=== PATIENT | female | born 1955 | race Caucasian/White ===

== ENCOUNTER 2019-09-20 08:48 | Outpatient (CLI) | payer BC, SELFPAY ==
--- NOTE | 2019-09-20 09:07 | XR_ITS ---
WS: [id number] KNEE RIGHT TECHNIQUE: 3 views of the right knee CLINICAL INFORMATION: KNEE PAIN, RIGHT COMPARISON: November 08, 2017 FINDINGS: Mild joint space narrowing medial joint compartment. Lateral compartment is better preserved. Hypertr ophic patella. Moderate narrowing of patellofemoral articulation XR/XR knee RT 3V* [id number] IMPRESSION: Mild joint space narrowing medial joint compartment with moderate narrowing at the patellofemoral articulation. Hypertrophic patella.
== END 2019-09-20 08:49 | disposition home or self-care (01) ==
LOC: RADWPI 08:51
PROVIDERS: Family Provider Family Medicine; PCP Family Medicine; Visit Provider Family Medicine
DX: M25.561 Pain in right knee (principal)
CPT/HCPCS: 73562

== ENCOUNTER 2019-09-25 14:26 | Outpatient (RCR) | payer BC, SELFPAY | END 2019-10-06 23:59 | disposition home or self-care (01) | LOC: SPT 14:26 | PROVIDERS: Family Provider Family Medicine; PCP Family Medicine; Referring Provider Family Medicine; Visit Provider Family Medicine | DX: M25.561 Pain in right knee (principal) | CPT/HCPCS: 97110; 97162 ==

== ENCOUNTER 2019-10-07 06:00 | Outpatient (RCR) | payer BC, SELFPAY | END 2019-11-06 23:59 | disposition home or self-care (01) | LOC: SPT 06:00 | PROVIDERS: Family Provider Family Medicine; PCP Family Medicine; Referring Provider Family Medicine; Visit Provider Family Medicine | DX: M25.561 Pain in right knee (principal) | CPT/HCPCS: 97110 ==

== ENCOUNTER 2020-01-21 13:04 | Outpatient (CLI) | payer BC, SELFPAY ==
--- NOTE | 2020-01-21 13:10 | XR_ITS ---
WS: [id number] XR hand RT min 3V* [id number] REASON FOR EXAM: HAND PAIN, RIGHT FINDINGS: Degenerate changes of the distal interphalangeal joints of the first, second, third phalanx . There is degenerate changes of the articulation of the scaphoid and greater lesser multangular. The ulna and radius were normal. Comparisons were made to previous exam of March 01, 2017 with slightly progressive disease. There is a small cystic area noted now in the middle second phalanx and the distal third phalanx. XR/XR hand RT min 3V* [id number] IMPRESSION: Progressive osteoarthritic changes. Small cysts are seen in the phalanges now second and third.
== END 2020-01-21 13:05 | disposition home or self-care (01) ==
LOC: RAD 13:07
PROVIDERS: PCP Family Medicine; Visit Provider Family Medicine
DX: M79.641 Pain in right hand (principal)
CPT/HCPCS: 73130

== ENCOUNTER 2020-01-30 08:25 | Outpatient (CLI) | payer BC, SELFPAY ==
--- NOTE | 2020-01-30 08:33 | MR_ITS ---
WS: [id number] MRI RIGHT KNEE NONCONTRAST TECHNIQUE: Axial PD, coronal PD fat sat, coronal PD, sagittal PD, and sagittal PD fat-sat images obta ined. CLINICAL INFORMATION: RIGHT KNEE PAIN COMPARISON: None. FINDINGS: Distal quadriceps and patella tendons are intact. Hypertrophic patella. Diffuse thickening with T1 an d T2 signal normality involving the anterior cruciate ligament most consistent with mucoid degenerati on. ACL fibers appear intact. PCL appears normal. Diffuse chronic thinning of the medial and lateral meniscus. Horizontal tear involving the posterior horn medial meniscus extending to the articular surface. Chronic intrasubstance signal abnormality in volving both the medial and lateral meniscus. Small ganglion cyst along the ACL origin largest measuring 11 mm. Large lobulated popliteal cyst whitney uring 1.5 x 1.8 x 8.1 cm AP by transverse by craniocaudal. Advanced chondromalacia patella with subchondral edema. Complete loss of the cartilage involving the medial patella facet. Moderate degenerative narrowing involving the patellofemoral articulation. Medi al and lateral collateral ligaments appear intact. Advanced chondromalacia involving the medial joint compartment. Subchondral edema in the medial femoral condyle and tibial plateau. MR/MR knee RT wo con* [id number] IMPRESSION: 1. Diffuse thickening of the anterior cruciate ligament with T1 and T2 signal abnormality most consistent with mucoid degeneration. ACL appears intact. 2. Normal PCL. 3. Horizontal tear involving the posterior horn medial meniscus extending to t he articular surface. 4. Moderate to advanced joint space narrowing with near complete loss of the m edial joint space articular cartilage with subchondral edema. 5. Grade IV chondromalacia patella worse involving the medial patella facet wi th subchondral edema. 6. Large loculated popliteal cyst measuring 1.5 x 1.8 x 8.1 cm
== END 2020-01-30 08:26 | disposition home or self-care (01) ==
LOC: RADWPI 08:27
PROVIDERS: Family Provider Family Medicine; PCP Family Medicine; Visit Provider Family Medicine
DX: S83.241A Other tear of medial meniscus, current injury, right knee, initial encounter (principal); M22.41 Chondromalacia patellae, right knee; R60.9 Edema, unspecified; M71.21 Synovial cyst of popliteal space [Baker], right knee
CPT/HCPCS: 73721

== ENCOUNTER 2020-10-20 10:11 | Outpatient (CLI) | payer BC, SELFPAY ==
--- NOTE | 2020-10-20 10:17 | MM_ITS ---
WS: [id number] Bilateral screening digital mammogram, 10/20/2020 Clinical Data: SCREENING Comparison: 05/23/2019, 02/10/2018, 02/01/2017, 01/20/2016, 06/25/2014, 05/28/2013, 02/21/2012, 02/04/2012, 01/26/2011, 12/29/2009, 10/16/2008, 02/09/2007. Findings: The breast parenchymal pattern shows fibroglandular tissue No spiculated masses or clustered calcific ations are seen. There are no secondary signs of carcinoma. MM/[place] [id number] Impression: 1. Negative bilateral mammogram unchanged. 2. Recommend annual screening mammograms. BIRADS: 1-Negative FOLLOW UP: 1 Year Follow-up The CAD dry cleaning checker was used.
== END 2020-10-20 10:12 | disposition home or self-care (01) ==
LOC: RADSHAW 10:14
PROVIDERS: PCP Family Medicine; Visit Provider Family Medicine
DX: Z12.31 Encounter for screening mammogram for malignant neoplasm of breast (principal)
CPT/HCPCS: 77067

== ENCOUNTER 2021-09-28 12:26 | Outpatient (CLI) | payer BC, SELFPAY ==
--- NOTE | 2021-09-28 12:40 | XR_ITS ---
WS: [id number] Exam: XR chest 2V* [id number] Date/Time of Exam: 09/28/2021 12:47 PM Reason For Exam: CHEST PAIN No priors. The lungs are hyperinflated. No acute infiltrates are seen. Blunted right costophrenic angle may repr esent either pleural effusion or chronic pleural thickening. Heart size is normal. The mediastinum an d osseous thorax are unremarkable. XR/XR chest 2V* [id number] IMPRESSION: 1. Pulmonary hyperinflation which may indicate COPD. 2. Blunted right costophrenic angle suggesting either pleural thickening or sma ll pleural effusion.
[2021-09-28 13:11] LABS: Basophils # 0.1 10^3/uL (0.0-0.1); Basophils % 0.7 %; Eosinophils # 0.1 10^3/uL (0.0-0.8); Hematocrit 39.7 % (37.0-47.0); Hemoglobin 12.5 g/dL (11.5-15.3); Lymphocytes # 2.3 10^3/uL (0.8-4.8); Mean Corpuscular HGB Conc 31.5 g/dL (30.0-36.0); Mean Corpuscular Hemoglobin 29.3 pg (28.0-34.0); Mean Corpuscular Volume 93.2 fl (81-99); Mean Platelet Volume 9.8 fL (7.4-10.4); Monocytes # 0.8 10^3/uL (0.2-0.9); Monocytes % 7.5 %; Neutrophils # 7.54 10^3/uL (1.8-7.7); Neutrophils % 69.4 %; Nucleated Red Blood Cells % 0 %; Platelet Count 287 10^3/cmm (130-400); Red Blood Count 4.26 10^6/uL (4.1-5.3); Red Cell Distribution Width 13.5 % (12.1-15.1); White Blood Count 10.9 10^3/uL (4.0-10.0)
[2021-09-28 13:25] LABS: D Dimer 1.78 ug/mIFEU (0-0.59)
[2021-09-28 13:45] LABS: Alanine Aminotransferase 191 U/L (0-33); Albumin Level 4.2 g/dL (3.5-5.2); Alkaline Phosphatase 180 IU/L (35-105); Anion Gap 15.4 (5-19); Aspartate Amino Transferase 152 U/L (0-32); Blood Urea Nitrogen 21 mg/dL (8-23); Calcium 9.6 mg/dL (8.5-10.5); Carbon Dioxide 24 mmol/L (22-29); Chloride 105 mmol/L (98-107); Globulin 2.6 g/dL (1.3-4.6); Glucose 139 mg/dL (65-115); Osmolality Calculated 295 mOsm/kg (285-295); Potassium 4.4 mmol/L (3.5-5.1); Sodium 140 mmol/L (136-145); Total Bilirubin 0.4 mg/dL (0.15-1.2); Total Protein 6.8 g/dL (6.6-8.7)
[2021-09-28 13:48] LABS: Troponin T (5th) Once 22 ng/L (0-10)
== END 2021-09-28 12:27 | disposition home or self-care (01) ==
PROVIDERS: PCP Family Medicine; Visit Provider Family Medicine
DX: R07.9 Chest pain, unspecified (principal)
CPT/HCPCS: 36415; 71046; 80053; 84484; 85025; 85378

== ENCOUNTER 2021-09-28 18:51 | Inpatient (IN) | payer BC, MEDICARE, SELFPAY ==
[2021-09-28] VITALS (7 sets, daily range): BP systolic 100–146; BP diastolic 74–132; PULSE 74–132; RESP 18–75; TEMP 35.9–37.2; O2SAT 93–96; BMI 210.9; BMI 23.4
--- NOTE | 2021-09-28 18:52 | XRR_ITS ---
PROCEDURE INFORMATION: Exam: XR Chest Exam date and time: 09/28/2021 6:52 PM Age: 66 years old Clinical indication: Shortness of breath; Patient HX: Rapid heart rate; Additional info: Cp TECHNIQUE: Imaging protocol: XR of the chest. Views: 1 view. COMPARISON: CR XR chest 2V* [id number] 09/28/2021 12:52 PM FINDINGS: Lungs: Bilateral hilar to lower lobe atelectasis versus early infiltrate. Pleural spaces: Unremarkable. No pleural effusion. No pneumothorax. Heart/Mediastinum: Mild cardiomegaly and pulmonary vascular congestion. Bones/joints: Unremarkable. XR/XR chest 1V portable [id number] IMPRESSION: 1. Mild cardiomegaly and pulmonary vascular congestion. 2. Bilateral hilar to lower lobe atelectasis versus early infiltrate.
--- NOTE | 2021-09-28 18:52 | ECG_ITS ---
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 Measurements Intervals [place] Rate: 145 P: NC: QRS: 83 QRSD: 78 T: 85 QT: 285 QTc: 444 Interpretive Statements ATRIAL FIBRILLATION WITH RAPID VENTRICULAR RESPONSE POSSIBLE ANTERIOR MYOCARDIAL INFARCTION , PROBABLY OLD [30 ms Q WAVE IN V3/V4, OR R < 0.2 mV IN V4] ABNORMAL RHYTHM ECG No previous ECG available for comparison Electronically Signed On 09-28-2021 22:16:43 APPLICATIONS SYSTEM ANALYST by Sandeep Andres M.D. [id number]
--- NOTE | 2021-09-28 18:54 | CTR_ITS ---
PROCEDURE INFORMATION: Exam: CTA Chest With Contrast Exam date and time: 09/28/2021 6:54 PM Age: 66 years old Clinical indication: Shortness of breath; Patient HX: SOB TECHNIQUE: Imaging protocol: Computed tomographic angiography of the chest with contrast. 3D rendering (Not supervised by radiologist): MIP and/or 3D reconstructed images were created by the technologist. Radiation optimization: All CT scans at this facility use at least one of these dose optimization techniques: automated exposure control; mA and/or kV adjustment per patient size (includes targeted exams where dose is matched to clinical indication); or iterative reconstruction. Contrast material: OMNI 300; Contrast volume: 67 ml; Contrast route: INTRAVENOUS (IV); COMPARISON: CR (CHEST, ) 09/28/2021 7:33 PM RADIATION DOSE METRICS: Total DLP (mGy-cm): 498.47 FINDINGS: Pulmonary arteries: Normal. No pulmonary emboli. Aorta: Unremarkable. No aortic aneurysm. No aortic dissection. Lungs: Bilateral dependent atelectasis versus infiltrate. Pleural spaces: Moderate bilateral pleural effusions. Heart: Mild cardiomegaly. Lymph nodes: Unremarkable. No enlarged lymph nodes. Bones/joints: Unremarkable. No acute fracture. Soft tissues: Unremarkable. CT/CT angio chest PE protcl [id number] IMPRESSION: 1. Negative for pulmonary embolus. 2. Moderate bilateral pleural effusions. 3. Mild cardiomegaly. 4. Bilateral dependent atelectasis versus infiltrate.
--- NOTE | 2021-09-28 19:15 | ED_ITS ---
HPI - Arrhythmia/Palpitations General: Chief Complaint: Arrhythmia/Palpitations Stated Complaint: chest pain, SOB Time Seen by Provider: 09/28/21 18:53 Source: patient Mode of arrival: ambulatory Limitations: no limitations History of Present Illness: 66-year-old female states she was diagnosed with A. fib roughly 2 weeks ago she has been on propranolol states that she is continue to have a half heart rate and she started having increasing shortness of breath today. She was seen by her PCP did D-dimer it was elevated so they sent her here. States that she has had some slight swelling to her extremities as well. She had some chest pains when she has palpitations heart rate here is elevated. Associated symptoms: Deny nausea or vomiting Review of Systems Const: Denies: fever(s), chills, body aches or change in appetite Eyes: Denies: blurry vision or eye discomfort ENMT: Denies: throat pain or dental pain Card: Reports: chest pain, palpitations and irregular heart rhythm Resp: Reports: dyspnea GI: Denies: abdominal pain, nausea, vomiting or diarrhea : Denies: dysuria Musc: Denies: neck pain or back pain Skin/Breast: Denies: rash Neuro: Denies: headache(s) Psych: Denies: depression [place]/Lymph: Denies: easy bruising All/Imm: Denies: urticaria PFSH ED PFSH: Medical History Atrial fibrillation Social History Desire information about alcohol rehabilitation?: No Physical Exam Const: COMMON NORMALS: patient oriented x3 GENERAL APPEARANCE: in distress and ill appearing HENMT: COMMON NORMALS: normocephalic and atraumatic HEAD & SCALP: normocephalic and atraumatic Eye: COMMON NORMALS: Equal, round and reactive pupils present and EOMs intact bilaterally PUPIL: Yes Equal, round and reactive pupils present Neck/C-Spine: COMMON NORMALS: full ROM and supple Chest: COMMONS NORMALS: normal inspection of the chest and normal palpation of entire chest wall Resp: COMMON NORMALS: normal respiratory effort, No retractions, No use of accessory muscles and clear to auscultation bilaterally AUSCULTATION: clear to auscultation bilaterally Cardio: COMMON NORMALS: No murmurs present (Cardio) RATE: tachycardic RHYTHM: abnormal rhythm irregularly irregular GI: COMMON NORMALS: Normal to inspection, nondistended, normoactive bowel sounds present, Soft to palpation, non-tender and no masses PALPATION: Yes Soft to palpation Extremity: COMMON NORMALS: normal to inspection and full ROM Neuro: COMMON NORMALS: patient oriented x3, moves all extremities and no focal motor deficits Psych: COMMON NORMALS: mental status grossly normal, Normal thought process present and cooperative THOUGHT PROCESS: Normal thought process present Skin: COMMON NORMALS: no rashes or lesions noted and no wounds GENERAL SKIN EXAM: no rashes or lesions noted Course Vital Signs: Vital signs: Vital Signs Temperature 99.0 F 09/28/21 19:05 Pulse Rate 74 09/28/21 19:15 Respiratory Rate 18 09/28/21 19:15 Blood Pressure 100/74 09/28/21 19:15 Pulse Oximetry 93 09/28/21 19:15 MDM - Arrhythmia/Palpitations Medical Decision Making Patient presents with A. fib with RVR requiring a Cardizem drip patient also conor kee has congestive heart failure she is having some dyspnea elevated BNP will admit for an echo along with further treatment of her A. fib spoke to hospitalist who is admitting. Lab Data : 09/28/21 19:05 09/28/21 19:05 Radiology Impressions Chest X-Ray 09/28/21 18:52 IMPRESSION: 1. Mild cardiomegaly and pulmonary vascular congestion. 2. Bilateral hilar to lower lobe atelectasis versus early infiltrate. Chest CTA 09/28/21 18:54 IMPRESSION: 1. Negative for pulmonary embolus. 2. Moderate bilateral pleural effusions. 3. Mild cardiomegaly. 4. Bilateral dependent atelectasis versus infiltrate. Laboratory Results WBC 9.0 10^3/uL (4.0-10.0) 09/28/21 19:05 RBC 3.98 10^6/uL (4.1-5.3) L 09/28/21 19:05 Hgb 11.8 g/dL (11.5-15.3) 09/28/21 19:05 Hct 36.4 % (37.0-47.0) L 09/28/21 19:05 MCV 91.5 fl (81-99) 09/28/21 19:05 MCH 29.6 pg (28.0-34.0) 09/28/21 19:05 MCHC 32.4 g/dL (30.0-36.0) 09/28/21 19:05 RDW 13.5 % (12.1-15.1) 09/28/21 19:05 Plt Count 261 10^3/cmm (130-400) 09/28/21 19:05 MPV 10.2 fL (7.4-10.4) 09/28/21 19:05 Neut % (Auto) 66.2 % 09/28/21 19:05 Lymph % (Auto) 23.6 % 09/28/21 19:05 [place] % (Auto) 9.4 % 09/28/21 19:05 Eos % (Auto) 0.1 % 09/28/21 19:05 Baso % (Auto) 0.4 % 09/28/21 19:05 Neut # (Auto) 5.95 10^3/uL (1.8-7.7) 09/28/21 19:05 Lymph # (Auto) 2.1 10^3/uL (0.8-4.8) 09/28/21 19:05 [place] # (Auto) 0.9 10^3/uL (0.2-0.9) 09/28/21 19:05 Eos # (Auto) 0.0 10^3/uL (0.0-0.8) 09/28/21 19:05 Baso # (Auto) 0.0 10^3/uL (0.0-0.1) 09/28/21 19:05 Nucleated RBC % (auto) 0 % 09/28/21 19:05 Nucleated RBCs # 0.0 /100WBC 09/28/21 19:05 Sodium 138 mmol/L (136-145) 09/28/21 19:05 Potassium 4.9 mmol/L (3.5-5.1) 09/28/21 19:05 Chloride 105 mmol/L (98-107) 09/28/21 19:05 Carbon Dioxide 23 mmol/L (22-29) 09/28/21 19:05 Anion Gap 14.9 (5-19) 09/28/21 19:05 BUN 24 mg/dL (8-23) H 09/28/21 19:05 Creatinine 0.8 mg/dL (0.5-0.9) 09/28/21 19:05 GFR Calculation 72.0 mL/min (90-130) L 09/28/21 19:05 Glucose 162 mg/dL (65-115) H 09/28/21 19:05 Calculated Osmolality 294 mOsm/kg (285-295) 09/28/21 19:05 Calcium 9.4 mg/dL (8.5-10.5) 09/28/21 19:05 Total Bilirubin 0.3 mg/dL (0.15-1.2) 09/28/21 19:05 AST 172 U/L (0-32) H 09/28/21 19:05 ALT 209 U/L (0-33) H 09/28/21 19:05 Alkaline Phosphatase 184 IU/L (35-105) H 09/28/21 19:05 Troponin T Baseline 22 ng/L (0-10) H 09/28/21 19:05 NT-Pro-B Natriuret Pep 8662 pg/mL (0-125) H 09/28/21 19:05 Total Protein 6.3 g/dL (6.6-8.7) L 09/28/21 19:05 Albumin 4.1 g/dL (3.5-5.2) 09/28/21 19:05 Globulin 2.2 g/dL (1.3-4.6) 09/28/21 19:05 EKG Data EKG 1: I personally reviewed and interpreted this EKG as follows: EKG interpretation date: 09/28/21 EKG interpretation time: 18:58 Interpretation: afib hr [address] or t wave abnormalities qrs 78 qtc 369 Other EKG comments: Chest X-Ray 09/28/21 18:52 IMPRESSION: 1. Mild cardiomegaly and pulmonary vascular congestion. 2. Bilateral hilar to lower lobe atelectasis versus early infiltrate. Chest CTA 09/28/21 18:54 IMPRESSION: 1. Negative for pulmonary embolus. 2. Moderate bilateral pleural effusions. 3. Mild cardiomegaly. 4. Bilateral dependent atelectasis versus infiltrate. Critical Care Time Critical Care Time: Critical Care Time: Yes Total Critical Care Time: 40 Attestation: The high probability of a clinically significant, sudden or life threatening deterioration of the patient's cv system(s) required my full and direct attention, intervention and personal management. The critical care time is as shown. This time is in addition to time spent performing any reported procedures but includes the following: [x] Data and vital sign review and interpretation [x] Patient assessment, examination and intervention [x] Documentation [x] Medication orders and management Discharge Plan Discharge Patient Disposition: Admitted As Inpatient Clinical Impression: Atrial fibrillation with RVR, CHF (congestive heart failure) Condition: Stable Coding Level of Care Code ED Acid Operator for Germán Fwd Exam Comprehensive
[2021-09-28 19:17] LABS: Basophils % 0.4 %; Eosinophils % 0.1 %; Hematocrit 36.4 % (37.0-47.0); Hemoglobin 11.8 g/dL (11.5-15.3); Lymphocytes # 2.1 10^3/uL (0.8-4.8); Lymphocytes % 23.6 %; Mean Corpuscular HGB Conc 32.4 g/dL (30.0-36.0); Mean Corpuscular Hemoglobin 29.6 pg (28.0-34.0); Mean Corpuscular Volume 91.5 fl (81-99); Mean Platelet Volume 10.2 fL (7.4-10.4); Monocytes # 0.9 10^3/uL (0.2-0.9); Monocytes % 9.4 %; Neutrophils # 5.95 10^3/uL (1.8-7.7); Neutrophils % 66.2 %; Nucleated Red Blood Cells % 0 %; Platelet Count 261 10^3/cmm (130-400); Red Blood Count 3.98 10^6/uL (4.1-5.3); Red Cell Distribution Width 13.5 % (12.1-15.1)
--- NOTE | 2021-09-28 19:25 | PC.NURSE ---
This RN noted patient's SpO2 at 83% with good waveform. Pt awakens immediately to verbal stimuli and able to follow commands. Pt placed on 2L NC, now 99%. Pt a/ox4, able to answer all orientation questions correctly. Pt is able to give good history of present illness. Pt appears calm and in no acute distress.
[2021-09-28 19:40] LABS: Troponin(5th) Baseline 22 ng/L (0-10)
[2021-09-28 19:41] LABS: Alanine Aminotransferase 209 U/L (0-33); Albumin Level 4.1 g/dL (3.5-5.2); Alkaline Phosphatase 184 IU/L (35-105); Anion Gap 14.9 (5-19); Aspartate Amino Transferase 172 U/L (0-32); Blood Urea Nitrogen 24 mg/dL (8-23); Calcium 9.4 mg/dL (8.5-10.5); Carbon Dioxide 23 mmol/L (22-29); Chloride 105 mmol/L (98-107); Globulin 2.2 g/dL (1.3-4.6); Glucose 162 mg/dL (65-115); NT Pro B Type Natriuretic Pept 8662 pg/mL (0-125); Osmolality Calculated 294 mOsm/kg (285-295); Potassium 4.9 mmol/L (3.5-5.1); Sodium 138 mmol/L (136-145); Total Bilirubin 0.3 mg/dL (0.15-1.2); Total Protein 6.3 g/dL (6.6-8.7)
[2021-09-28] MEDS: dilTIAZem 60 mg Tablet PO (19:54)
[2021-09-28] MEDS: iohexol 350 mg/mL 100 mL Btl IV (20:18)
[2021-09-28] MEDS: FUROsemide 10 mg/mL SDV 4mL 40 MG IVP (20:51)
--- NOTE | 2021-09-28 20:52 | ECG_ITS ---
[facility] Test Date: 2021-09-28 Pat Name: Glory Thomas Department: Room: Gender: Female Cigar Bander Hand: : 1955 Requested By: Mac Sumner Order Number: [id number] Jay MD: Sandeep Andres M.D. Measurements Intervals [place] Rate: 110 P: [place]: QRS: 77 QRSD: 81 T: 83 QT: 326 QTc: 441 Interpretive Statements ATRIAL FIBRILLATION WITH RAPID VENTRICULAR RESPONSE Compared to ECG 09/28/2021 18:58:02 Myocardial infarct finding no longer present Electronically Signed On 09-28-2021 22:19:50 HARNESS REPAIRER by Sandeep Andres M.D. [id number]
[2021-09-28 20:53] LABS: Troponin 5 2HR 17.25 ng/L (0-10)
[2021-09-28 20:54] LABS: Troponin 5 2HR Delta -4.75 ABS# (0-10)
[2021-09-28 20:57] LABS: Adenovirus Detected (NOT DETECT); Chlamydia Pneumoniae Not Detected (NOT DETECT); Coronavirus 229E,HKU1,NL63,OC4 Not Detected (NOT DETECT); Human Metapneumovirus Not Detected (NOT DETECT); Human Rhinovirus/Enterovirus Not Detected (NOT DETECT); Influenza A Not Detected (NOT DETECT); Influenza A H1 Not Detected (NOT DETECT); Influenza A H1-2009 Not Detected (NOT DETECT); Influenza A H3 Not Detected (NOT DETECT); Influenza B Not Detected (NOT DETECT); Mycoplasma Pneumoniae Not Detected (NOT DETECT); Parainfluenza Virus Type 1 Not Detected (NOT DETECT); Parainfluenza Virus Type 2 Not Detected (NOT DETECT); Parainfluenza Virus Type 3 Not Detected (NOT DETECT); Parainfluenza Virus Type 4 Not Detected (NOT DETECT); Respiratory Syncytial Virus A Not Detected (NOT DETECT); Respiratory Syncytial Virus B Not Detected (NOT DETECT); SARS-COV-2 Not Detected (NOT DETECT)
[2021-09-28 21:05] LABS: Adenovirus Detected (NOT DETECT); Results from Genmark
[2021-09-29] VITALS (12 sets, daily range): BP systolic 82–124; BP diastolic 60–102; PULSE 82–147; RESP 15–25; TEMP 36.1–36.6; O2SAT 91–94
--- NOTE | 2021-09-29 00:52 | ECG_ITS ---
[facility] Test Date: 2021-09-29 Pat Name: Glory Thomas Department: Room: 106 Gender: Female Twisting Department End Finder: : 1955 Requested By: Mac Sumner Order Number: [id number] Jay MD: Deisi Barroso M.D. Measurements Intervals [place] Rate: 113 P: [place]: QRS: 61 QRSD: 87 T: 56 QT: 325 QTc: 447 Interpretive Statements ATRIAL FIBRILLATION WITH RAPID VENTRICULAR RESPONSE NONSPECIFIC ST & T-WAVE ABNORMALITY Compared to ECG 09/28/2021 20:37:13 T-wave abnormality now present Electronically Signed On 09-29-2021 17:46:16 JOB INTERVIEWER by Deisi Barroso M.D. [id number]
--- NOTE | 2021-09-29 01:04 | USCV_ITS ---
Glory Thomas Age: 66 Gender: F : 1955 Exam Date: 09/29/2021 02:45 Ordering Phys: Anna Marie Oliveros MD Technologist: Ebonie Clark Exam Location: [facility] [place] Indication: AFIB RVR BP: 118 / 74 HR: 100 Rhythm: Sinus Technical Quality: Adequate MEASUREMENTS (Male / Female) Normal Values 2D ECHO LV Diastolic Diameter PLAX 4.6 cm 4.2 - 5.9 / 3.9 - 5.3 cm LV Systolic Diameter PLAX 2.2 cm LV Chamber Size 2.8 cm IVS Diastolic Thickness 0.9 cm 0.6 - 1.0 / 0.6 - 0.9 cm IVS Systolic Thickness 1.5 cm LVPW Diastolic Thickness 0.9 cm 0.6 - 1.0 / 0.6 - 0.9 cm LVPW Systolic Thickness 1.4 cm RV Chamber Size 3.1 cm LVOT Diameter 2.0 cm LV Ejection Fraction 2D Teich 84.0 % LV Ejection Fraction MOD 2C 55.8 % LV Ejection Fraction 2C AL 56.3 % LA Diameter 3.7 cm LA Width 2.9 cm LA Height 3.1 cm RA Width 3.2 cm RA Height 3.4 cm Aorta at Sinotubular Diameter 3.0 cm M-MODE Aortic Annulus Diameter 3.1 cm LA Ao Ratio MM 1.3 MV E Point Septal Separation 0.5 cm DOPPLER AV Peak Velocity 119.0 cm/s LVOT Peak Velocity 68.0 cm/s AV Area Cont Eq vti 2.0 cm squared AV Area Cont Eq pk 1.8 cm squared MV Area PHT 4.5 cm squared Mitral E to A Ratio 113.1 MV E' Velocity 51.0 cm/s Mitral E to MV E' Ratio 7.1 Mitral E to LV E' Lateral Ratio 8.2 Mitral E to LV E' Septal Ratio 6.3 TR Peak Velocity 241.8 cm/s TR Peak Gradient 23.4 mmHg TR Mean Velocity 185.8 cm/s TR Mean Gradient 15.3 mmHg TR Velocity Time Integral 63.8 cm TV Peak E Velocity 55.0 cm/s Right Atrial Pressure 15.0 mmHg Pulmonary Artery Systolic Pressu 38.4 mmHg PV Peak Velocity 68.0 cm/s RV Acceleration Time 0.1 s RV Ejection Time 0.3 s RV AcT/ET 0.4 FINDINGS Left Ventricle Normal left ventricular size and systolic function, EF 55 %. No regional wall motion abnormalities. Right Ventricle The right ventricle is normal in size and function. Right Atrium Moderately increased right atrial size. Left Atrium Mildly increased left atrial size. Mitral Valve Trace mitral valve regurgitation. Aortic Valve No gross abnormalities noted Tricuspid Valve [id number]-tq-sicqys tricuspid valve regurgitation. Estimated pulmonary artery peak systolic pressure of 38 mmHg Pulmonic Valve Structurally normal pulmonic valve without significant stenosis. There is no pulmonic regurgitation. Pericardium Dilated inferior vena cava Aorta Normal ascending aorta dimension. CONCLUSIONS Normal left ventricular size and systolic function, EF 55 %. No gross regional wall motion abnormalities. Segmental wall motion analysis difficult because of the atrial fibrillation rapid ventricular rate. Gqgbxsqw-[id number] tricuspid valve regurgitation. Estimated pulmonary artery peak systolic pressure of 38 mmHg. Biatrial enlargement-moderately dilated right atrium mildly dilated left atrium Trace mitral valve regurgitation. There is no pericardial effusion. There are no intracardiac masses. No previous study is available for comparison. Dr Murtaza Gar MD FACC (Electronically Signed) Final Date: 29 September 2021 10:17 S
--- NOTE | 2021-09-29 01:08 | P.HP_ITS ---
Providers/Chief Complaint Admitting Physician: Anna Marie Oliveros MD Primary Care Provider: Adrien Platt MD Chief Complaint: chest pain, SOB History of Present Illness Glory Thomas is a 66 year old female with PMH HTN, A fib first diagnosed ~ 10 years ago for [facility] she is on propranolol. 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 has never been on any a/c in the past. States she takes Lasix additionally at home due to LE edema however this was stopped one week ago. She states that A fib has not bothered her much in several years, however over the past 3-4 weeks she has been experiencing increasing palpitations and shortness of breath which limits her usual activities. States she is unable to ambulate within a room without getting SOB. Today she was found to have elevtaed D dimer additionally and B/L LE edema for which she was sent to the ER. Upon arrival HR was 160s, she has been started on cardizem infusion, currently at 10mg/hr. Also received Lasix 40mg iv. CTA chest negative for PE. B/L pleural effusions noted. Review of Systems General: Reports: 10 or more systems reviewed and unremarkable except in HPI and below Const: Denies: fever(s), chills or body aches Eyes: Denies: change in vision, blurry vision or photophobia ENMT: Reports: hoarseness; Denies: throat pain, enlarged tonsils, odynophagia or nasal congestion Card: Denies: chest pain, palpitations, irregular heart rhythm, edema, swelling of feet/ankles, lightheadedness, pre-syncope, dyspnea on exertion or orthopnea Resp: Denies: dyspnea, productive cough, non-productive cough, wheezing, stridor, pain on inspiration, change in phlegm color, hemoptysis or chest congestion GI: Denies: abdominal pain, nausea, vomiting, hematemesis, coffee ground emesis, dysphagia, heartburn, diarrhea, constipation, GI cramping, change in stool character, hematochezia or melena : Denies: flank pain, difficulty voiding, dysuria, urinary frequency, urinary urgency, urinary hesitancy or hematuria Musc: Denies: neck pain, back pain, extremity pain, joint swelling, joint warmth or deformity Neuro: Denies: headache(s), numbness in extremities, weakness in extremities, sensory changes, difficulty walking, frequent falls, dizziness, vertigo, behavioral changes, Slurred speech present or seizure-like activity Psych: Denies: anxiety, depression, suicidal ideation or homicidal ideation Endo: Denies: polyuria, polydipsia, tired all the time, cold intolerance or hot flashes Maynor/Lymph: Denies: easy bruising or easy bleeding Medications/Allergies Home Medications Medication Instructions Recorded Confirmed Last Taken Type propranolol 40 mg tablet 40 mg PO TID 09/28/21 09/28/21 09/28/21 12:00 History Allergies Allergy/AdvReac Type Severity Reaction Status Date / Time No Known Allergies Allergy Verified 09/28/21 19:11 PFSH Acute PFSH: Medical History (Updated 09/29/21 @ 01:27 by Anna Marie Oliveros MD) Atrial fibrillation Hypertension Social History Desire information about alcohol rehabilitation?: No Vitals/I&O/Wt Last Vital Signs Temp 96.6 F L 09/28/21 21:30 Pulse 108 H 09/28/21 22:29 Resp 24 H 09/28/21 21:30 BP 132/83 09/28/21 21:30 Pulse Ox 93 09/28/21 19:15 09/28/21 09/28/21 09/29/21 14:59 22:59 06:59 Intake Total 5.833 / 5.833 Balance 5.833 / 5.833 Weight last 48 hrs Weight 67.903 kg Weight 610.989 kg Physical Exam Narrative: GEN: Awake, alert and oriented, no acute distress CVS: S1S2 N RS: B/L LL crackles noted Abd: Soft, nt/nd , bs+ 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 Data : 09/28/21 19:05 09/28/21 19:05 A&P Assessment and plan (1) Atrial fibrillation with RVR: Admit to CSU A fib with RVR with HR 160s Trop series without significant delta EKG without acute ST-T wave changes currently on Diltiazem infusion, start overlap with po cardizem 30mg q6h Check TSH reports first being diagnosed ~ 10 years ago, has been asymptomatic until few weeks ago Status: Acute (2) CHF (congestive heart failure): Likely precipitated by A fib with RVR Reports taking Lasix at home, stopped one week ago while uptitrating propranolol as outpatient Currently with B/L pleural effusion, elevated BNP Unknown at this time is systolic vs diastolic CHF- awaiting echocardiogram Status: Acute (3) Transaminitis: check hepatitis panel and US liver Status: Acute (4) Human adenovirus infection: no current pneumonia, however viral URI may be the precipitating cause of A fib with RVR Contact + droplet precautions Status: Acute Attestations Medical Necessity Statement*: >2midnight anticipated for above defined care Coding Level of Care Code 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
--- NOTE | 2021-09-29 01:19 | US_ITS ---
WS: [id number] RIGHT UPPER QUADRANT ULTRASOUND HISTORY: transaminitis COMPARISON: None available. Liver: 15.6 cm in length. Liver is normal size. Surface of the liver is slightly nodular. No mass or bile duct dilatation. Portal Vein: Normal hepatopetal flow with monophasic waveform. Gallbladder: Normally distended gallbladder. Mild diffuse gallbladder wall thickening. Small amount o f edema adjacent to the gallbladder. The wall thickening is diffuse. Gallbladder wall measures approx imately 4 mm. CBD: 0.2 cm Pancreas: Normal size and echogenicity. Right kidney: 8.9 cm in length. Normal size and echogenicity. No hydronephrosis or mass. Aorta and IVC: Unremarkable abdominal aorta and IVC. No ascites. There is a small pleural effusion on the RIGHT. US/US liver [id number] IMPRESSION: 1. Cirrhotic appearance to the liver. No mass. 2. Abnormal gallbladder. No cholelithiasis but there is diffuse gallbladder wa ll thickening with edema. This may be related to hepatocellular disease or acut e acalculous cholecystitis. 3. No bile duct dilatation. 4. Small RIGHT pleural effusion.
[2021-09-29 01:30] LABS: Troponin 5 6HR 18.46 ng/L (0-10); Troponin 5 6HR Delta -3.54 ng/L (0-12)
[2021-09-29 01:36] LABS: Thyroid Stimulating Hormone 3.54 uIU/mL (0.27-4.20)
[2021-09-29 01:43] LABS: Hepatitis A Antibody IgM Non-Reactive (Nonreactive); Hepatitis B Core AB, Total Non-Reactive (Nonreactive); Hepatitis B Surface AB 3.5 (11.5-1000); Hepatitis B Surface Antigen Non-Reactive (Nonreactive); Hepatitis C Virus Antibody Non-Reactive (Nonreactive)
[2021-09-29] MEDS: dilTIAZem 30 mg Tablet PO ×4 (01:49→19:48)
[2021-09-29] MEDS: acetaminophen 325 mg Tablet 650 MG PO (01:56)
--- NOTE | 2021-09-29 06:45 | PC.NURSE ---
This RN has verified and agrees with all documentation made by SN. Renee
--- NOTE | 2021-09-29 07:34 | PC.NURSE ---
Cardizem increased to 15, HR is still ranges from 120s to 130s. denies any chest pain, sob.
[2021-09-29] MEDS: pantoprazole DR 40 mg Tablet PO (09:40)
[2021-09-29] MEDS: FUROsemide 10 mg/mL SDV 4mL 40 MG IVP (09:40)
[2021-09-29] MEDS: metoprolol tartrate 25 mg Tablet PO ×2 (09:40→19:48)
--- NOTE | 2021-09-29 10:12 | PC.CHAP ---
Pastoral Care Encounter/Spiritual Assessment Type of Contact [] Declined astrobiologist visit [] Patient/Family/Request visit [] Outpatient visit [] Follow-up visit [] Physician referral [] Code/Alert [x] Routine visit [] Staff referral [] Actively dying [] Patient sleeping [] Family support [] [] Out of room [] Palliative care [] [] Receiving care in room [] Pre-surgical visit [] Trauma [] Long length of stay [] ICU visit [] Other: Relational/Emotional Strength [x] Patient feels connected with others/family/visitors/staff [] Distress [] Loneliness/isolation [] Abandonment Spirituality of Patient [] Person of [place] [] Attends Catholic of their [place] [] Believes in Prayer [] Reads Bible or Evangelical materials [x] There are Spiritual issues to be addressed Charging Plug Placer Interventions [] Prayer [x] Active listening [x] Non-anxious presence [x] Spiritual/emotional support [] Crisis/trauma care [] Spiritual counseling [] Bereavement support [] Provided bereavement packet [] Provided Bible/devotional materials [] Provided toy/stuffed animal, coloring book to patient or family member [] Provided Communion [] Anointing/[place] [] Salvation [] Completed spiritual assessment [] Other: Impact on Illness or Injury [] Angry [] Fearful [] Anxious [] Often cries [] Exhaustion [] Unable to work [] Unable to attend faith [] Unable to walk/stand [] Unable to read [] Unable to drive [] Unable to eat/drink [] Unable to sleep [] Unable to be with family [] Patient intubated [] Other: Summary Pt said she is not a person of libia. She did attend uatsdin with her grandparents as a child but has not continued in her adult life. Pt believes she will be able to return home in a couple of days. New medication should correct the problems she is now having. As Charging Plug Placer was visiting with her, Pt received an outside phone call. Pt excused Charging Plug Placer ending the visit. Time spent with patient 5m
--- NOTE | 2021-09-29 12:35 | P.PN_ITS ---
Subjective Subjective: Admitted overnight. On examination today patient 115 of Cardizem. She received oral Cardizem earlier in the morning today. Heart rate at rest running in 90s but on minimal conversation goes up to 120s. During the day got a call from the nurse that patient's heart rate has been running in persistently from 120s to 130s. At that time Cardizem drip was stopped and she was switched over to amiodarone with bolus. On examination early in the morning today patient states she has been having issues with possible palpitations and atrial fibrillation for which her dose of propranolol at home has been trended up by her primary care provider. We discussed regarding anticoagulation and patient is agreeable to start for stroke prevention. Vitals/I&O/Wt Last Vital Signs Temp 97.7 F 09/29/21 07:37 Pulse 118 H 09/29/21 11:28 Resp 20 H 09/29/21 11:28 BP 111/83 09/29/21 11:28 Pulse Ox 91 09/29/21 11:28 09/28/21 09/29/21 09/29/21 22:59 06:59 14:59 Intake Total 5.833 / 5.833 459.167 / 459.167 Balance 5.833 / 5.833 459.167 / 459.167 Weight last 48 hrs Weight 67.903 kg Weight 610.989 kg Physical Exam Narrative: General: No acute distress, AO x3, pleasant HEENT: PERRLA, pupils bilaterally equal and reactive Chest: Normal vesicular breath sounds, bilateral lower zone fine crackles, equal good air entry bilaterally CVS: S1-S2 irregularly irregular, pansystolic murmur in fourth intercostal space left retrosternal,no gallops, no rubs, JVD elevated Abdomen: Soft, nontender, no organomegaly, bowel sounds present Neuro: No focal deficits, no facial deformity, AO x3, power 5/5 in all limbs Data : 09/28/21 19:05 09/28/21 19:05 A&P Assessment and plan (1) Atrial fibrillation with RVR: Persistent. New diagnosis. Echocardiogram awaited. Persistently in RVR. Stop Cardizem drip. Switch to amiodarone drip with bolus. Continue with oral Cardizem for now. Patient takes propanolol at home. Will add metoprolol 25 mg twice daily. Eventual plan would be if heart rate gets under control to increase the dose of metoprolol and stop Cardizem. TSH within normal limits. Trevor vas score: 3 for age, female sex, history of hypertension. Start on full dose Lovenox 1 mg/kg body weight. Patient is agreeable for starting anticoagulation after discussing benefits versus risk factors for stroke prevention. Status: Acute (2) CHF (congestive heart failure): With preservation fraction. Continue with IV Lasix. Strict input output charting, daily weights. Status: Acute (3) Transaminitis: Most likely secondary to congestive heart failure. Appreciate hepatitis panel and liver ultrasound. Monitor on a daily basis. Status: Acute (4) Human adenovirus infection: no current pneumonia, however viral URI may be the precipitating cause of A fib with RVR Contact + droplet precautions Status: Acute Plan Full code. Cardiac diet. Fluid restriction up to 1500 cc. Protonix for PUD prophylaxis. 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
[2021-09-29] MEDS: enoxaparin 80 mg/0.8 mL Syringe 70 MG SUBCUT (13:22)
[2021-09-29] MEDS: digoxin 250 mcg/ml INJ 2 mL IVP (20:49)
[2021-09-29] MEDS: metoprolol tartrate 25 mg Tablet 50 MG PO (20:49)
[2021-09-30] VITALS (11 sets, daily range): BP systolic 103–161; BP diastolic 53–112; PULSE 57–135; RESP 18–22; TEMP 36.3–36.9; O2SAT 92–96
[2021-09-30] MEDS: enoxaparin 80 mg/0.8 mL Syringe 70 MG SUBCUT ×2 (01:22→12:13)
[2021-09-30] MEDS: digoxin 250 mcg/ml INJ 2 mL 125 MCG IVP ×2 (01:22→08:12)
[2021-09-30 04:33] LABS: Basophils # 0.1 10^3/uL (0.0-0.1); Basophils % 0.6 %; Eosinophils # 0.1 10^3/uL (0.0-0.8); Hematocrit 32.7 % (37.0-47.0); Hemoglobin 10.9 g/dL (11.5-15.3); Lymphocytes # 2.2 10^3/uL (0.8-4.8); Lymphocytes % 26.4 %; Mean Corpuscular HGB Conc 33.3 g/dL (30.0-36.0); Mean Corpuscular Hemoglobin 29.2 pg (28.0-34.0); Mean Corpuscular Volume 87.7 fl (81-99); Mean Platelet Volume 10.5 fL (7.4-10.4); Monocytes # 0.8 10^3/uL (0.2-0.9); Neutrophils # 5.02 10^3/uL (1.8-7.7); Neutrophils % 61.6 %; Nucleated Red Blood Cells % 0 %; Platelet Count 190 10^3/cmm (130-400); Red Blood Count 3.73 10^6/uL (4.1-5.3); Red Cell Distribution Width 13.2 % (12.1-15.1); White Blood Count 8.1 10^3/uL (4.0-10.0)
[2021-09-30 04:57] LABS: Alanine Aminotransferase 164 U/L (0-33); Albumin Level 3.7 g/dL (3.5-5.2); Alkaline Phosphatase 173 IU/L (35-105); Anion Gap 13.4 (5-19); Aspartate Amino Transferase 78 U/L (0-32); Blood Urea Nitrogen 19 mg/dL (8-23); Calcium 9.1 mg/dL (8.5-10.5); Carbon Dioxide 25 mmol/L (22-29); Chloride 97 mmol/L (98-107); Globulin 2.7 g/dL (1.3-4.6); Glucose 122 mg/dL (65-115); Osmolality Calculated 278 mOsm/kg (285-295); Potassium 3.4 mmol/L (3.5-5.1); Sodium 132 mmol/L (136-145); Total Bilirubin 0.5 mg/dL (0.15-1.2); Total Protein 6.4 g/dL (6.6-8.7)
[2021-09-30] MEDS: metoprolol tartrate 25 mg Tablet 50 MG PO ×2 (08:12→20:03)
[2021-09-30] MEDS: pantoprazole DR 40 mg Tablet PO (08:12)
[2021-09-30] MEDS: FUROsemide 40 mg Tablet PO (09:37)
[2021-09-30] MEDS: potassium chloride ER 20 mEq Tablet 40 MEQ PO (09:38)
--- NOTE | 2021-09-30 09:51 | PM.CONSULT ---
Providers/Reason For Consult Consulting Physician/Specialty*: SHARA Gar MD/cardiology Reason for Consult*: Patient with atrial fibrillation rapid ventricular rate. Currently on multiple AV evie blocking agents. The heart rate continues to be tachycardic. Requesting Physician: Dr. Reyes Attending Physician: Baldo Reyes MD Primary Care Provider: Adrien Platt MD History of Present Illness History of Present Illness Glory Thomas is a 66 year old female with a longstanding history of hypertension, is admitted to hospital with complaints of palpitation, dizziness or shortness of breath. This patient apparently has been in her baseline state of health up until 3 weeks ago when she started having palpitations. The episodes may last for a couple of days and then subsides spontaneously. So far she had 3 similar episodes of palpitations, each lasting for up to 2 days. She was seen by Dr. Platt with this complaint.as an outpatient She had a chest x-ray which revealed features of congestive heart failure. She is admitted to hospital for further evaluation and management. This patient has a history of irregular heartbeat, initially diagnosed 10 years ago. 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 Apparently she never had any medications. She was doing okay up until recently when she tried having more severe palpitations lasting longer and making her dizzy, lightheaded and short of breath. She has no previous history for any coronary artery disease or myocardial infarction. No history for heart failure. She has been taking medication for the high blood pressure. Lately her blood pressure has been staying out of control. The systolic blood pressure has been in the 1 40-1 50 range. She denies any fever or chills. No cough. No other specific complaints. Her father had myocardial infarction at the age of 49. No other relevant family history. Denies any smoking abuse or alcohol abuse at this point. Review of Systems General: Reports: 10 or more systems reviewed and unremarkable except in HPI and below Const: Denies: fever(s), chills or body aches Eyes: Denies: change in vision, blurry vision or photophobia ENMT: Reports: hoarseness; Denies: throat pain, enlarged tonsils, odynophagia or nasal congestion Card: Reports: irregular heart rhythm, lightheadedness and dyspnea on exertion; Denies: chest pain, palpitations, edema, swelling of feet/ankles, pre-syncope or orthopnea Resp: Reports: dyspnea; Denies: productive cough, non-productive cough, wheezing, stridor, pain on inspiration, change in phlegm color, hemoptysis or chest congestion GI: Denies: abdominal pain, nausea, vomiting, hematemesis, coffee ground emesis, dysphagia, heartburn, diarrhea, constipation, GI cramping, change in stool character, hematochezia or melena : Denies: flank pain, difficulty voiding, dysuria, urinary frequency, urinary urgency, urinary hesitancy or hematuria Musc: Denies: neck pain, back pain, extremity pain, joint swelling, joint warmth or deformity Neuro: Denies: headache(s), numbness in extremities, weakness in extremities, sensory changes, difficulty walking, frequent falls, dizziness, vertigo, behavioral changes, Slurred speech present or seizure-like activity Psych: Denies: anxiety, depression, suicidal ideation or homicidal ideation Endo: Denies: polyuria, polydipsia, tired all the time, cold intolerance or hot flashes Maynor/Lymph: Denies: easy bruising or easy bleeding Medications/Allergies Home Medications Medication Instructions Recorded Confirmed Last Taken Type propranolol 40 mg tablet 40 mg PO TID 09/28/21 09/28/21 09/28/21 12:00 History amiodarone 200 mg tablet (Pacerone) 400 mg PO BID #90 tab 10/01/21 Unknown Rx apixaban 5 mg tablet (Eliquis) 5 mg PO BID #60 tab 10/01/21 Unknown Rx aspirin 81 mg tablet,delayed 81 mg PO DAILY #30 tab 10/01/21 Unknown Rx release (Adult Low Dose Aspirin) furosemide 20 mg tablet (Lasix) 20 mg PO QAM #30 tab 10/01/21 Unknown Rx losartan 50 mg tablet 50 mg PO DAILY #30 tab 10/01/21 Unknown Rx metoprolol tartrate 50 mg tablet 50 mg PO BID #60 tab 10/01/21 Unknown Rx potassium chloride 10 mEq 10 meq PO DAILY #30 cap 10/01/21 Unknown Rx capsule,extended release Allergies Allergy/AdvReac Type Severity Reaction Status Date / Time No Known Allergies Allergy Verified 09/28/21 19:11 Current Medications Generic Name Dose Route Start Last Admin Trade Name Freq PRN Reason Stop Dose Admin Acetaminophen 650 mg 09/29/21 01:01 09/29/21 01:56 Acetaminophen 325 Mg Tablet PO 650 mg Q6H PRN Administration Mild/Mod Pain Or Temp >/= 101 Enoxaparin Sodium 70 mg 09/29/21 13:00 09/30/21 01:22 Enoxaparin 80 Mg/0.8 Ml Syringe SUBCUT 70 mg Q12H ADONAY Administration Furosemide 40 mg 09/30/21 09:00 09/30/21 09:37 Furosemide 40 Mg Tablet PO 40 mg DAILY@0800 ADONAY Administration Amiodarone HCl 900 mg/ 518 mls @ 0 mls/hr 09/29/21 13:00 09/29/21 19:25 Dextrose/ IV Miscellaneous IV 0.5 mg/min Supplies .Q0M ADONAY 17.27 mls/hr Titration Protocol Per Protocol Metoprolol Tartrate 50 mg 09/29/21 21:00 09/30/21 08:12 Metoprolol Tartrate 25 Mg Tablet PO 50 mg BID@0900,2100 ADONAY Administration Pantoprazole Sodium 40 mg 09/29/21 09:00 09/30/21 08:[address] 40 Mg Tablet PO 40 mg DAILY ADONAY Administration PFSH Acute PFSH: Medical History Atrial fibrillation Hypertension Social History Desire information about alcohol rehabilitation?: No Vitals/I&O/Wt Last Vital Signs Temp 97.5 F L 09/30/21 04:00 Pulse 80 09/30/21 09:13 Resp 18 09/30/21 09:13 BP 131/90 09/30/21 04:00 Pulse Ox 94 09/30/21 04:00 09/29/21 09/30/21 09/30/21 22:59 06:59 14:59 Intake Total 774.303 / 1558.470 240 / 1798.470 118 / 118 Balance 774.303 / 1558.470 240 / 1798.470 118 / 118 Weight last 48 hrs Weight 149 lb 11.2 oz Weight 1347 lb Physical Exam Narrative: GENERAL: The patient is alert and oriented times three. Not in any acute distress. HEENT: No significant pallor, icterus or lymphadenopathy. The pupils are reactant to light. Oral cavity: There are no mucous membrane lesions. Funduscopic examination: The fundus is not visualized NECK: Trachea appears to be central. No masses noted. No JVD or thyromegaly appreciated. No carotid bruit. RESPIRATORY: Chest is symmetrical. No intercostals muscle retraction or any accessory muscle activation. There is no chest wall tenderness. Breath sounds are heard bilaterally. No rales or rhonchi heard. No evidence of any consolidation. BREASTS: Deferred. HEART: The PMI is in the 5th left intercostals space just inside the midclavicular line. No palpable precordial events. S1 and S2 are normal. No S3 or S4 heard. No pericardial rub or any click heard. ABDOMEN: No vessel pulsations or distention. No tenderness. No organomegaly appreciated. No abdominal bruit. Bowel sounds are normally heard. : Deferred. RECTAL: Deferred. LYMPHATIC: No lymphadenopathy noted in the neck or groin. EXTREMITIES: No edema or cyanosis. No clubbing. The pulses are symmetrical bilaterally. The radial, femoral, dorsalis pedis and the posterior tibial pulses are palpated and found to be in good volume and amplitude. MUSCULOSKELETAL: No acute joint deformities or swelling SKIN: There are no significant scars or skin rash noted. NEUROPSYCHIATRIC: The patient is alert and oriented x3. Appears to be in a good mood. The higher functions are grossly within normal limits. No tremors or rigidity noted. Data : 09/30/21 04:12 10/01/21 03:47 Other Labs: Laboratory Last Values WBC 8.1 10^3/uL (4.0-10.0) 09/30/21 04:12 RBC 3.73 10^6/uL (4.1-5.3) L 09/30/21 04:12 Hgb 10.9 g/dL (11.5-15.3) L 09/30/21 04:12 Hct 32.7 % (37.0-47.0) L 09/30/21 04:12 MCV 87.7 fl (81-99) 09/30/21 04:12 MCH 29.2 pg (28.0-34.0) 09/30/21 04:12 MCHC 33.3 g/dL (30.0-36.0) 09/30/21 04:12 RDW 13.2 % (12.1-15.1) 09/30/21 04:12 Plt Count 190 10^3/cmm (130-400) 09/30/21 04:12 MPV 10.5 fL (7.4-10.4) H 09/30/21 04:12 Neut % (Auto) 61.6 % 09/30/21 04:12 Lymph % (Auto) 26.4 % 09/30/21 04:12 Evans % (Auto) 10.0 % 09/30/21 04:12 Eos % (Auto) 1.0 % 09/30/21 04:12 Baso % (Auto) 0.6 % 09/30/21 04:12 Neut # (Auto) 5.02 10^3/uL (1.8-7.7) 09/30/21 04:12 Lymph # (Auto) 2.2 10^3/uL (0.8-4.8) 09/30/21 04:12 Evans # (Auto) 0.8 10^3/uL (0.2-0.9) 09/30/21 04:12 Eos # (Auto) 0.1 10^3/uL (0.0-0.8) 09/30/21 04:12 Baso # (Auto) 0.1 10^3/uL (0.0-0.1) 09/30/21 04:12 Nucleated RBC % (auto) 0 % 09/30/21 04:12 Nucleated RBCs # 0.0 /100WBC 09/30/21 04:12 Sodium 132 mmol/L (136-145) L 09/30/21 04:12 Potassium 3.4 mmol/L (3.5-5.1) L 09/30/21 04:12 Chloride 97 mmol/L (98-107) L 09/30/21 04:12 Carbon Dioxide 25 mmol/L (22-29) 09/30/21 04:12 Anion Gap 13.4 (5-19) 09/30/21 04:12 BUN 19 mg/dL (8-23) 09/30/21 04:12 Creatinine 0.7 mg/dL (0.5-0.9) 09/30/21 04:12 GFR Calculation 84.0 mL/min (90-130) L 09/30/21 04:12 Glucose 122 mg/dL (65-115) H 09/30/21 04:12 Calculated Osmolality 278 mOsm/kg (285-295) L 09/30/21 04:12 Calcium 9.1 mg/dL (8.5-10.5) 09/30/21 04:12 Total Bilirubin 0.5 mg/dL (0.15-1.2) 09/30/21 04:12 AST 78 U/L (0-32) H 09/30/21 04:12 ALT 164 U/L (0-33) H 09/30/21 04:12 Alkaline Phosphatase 173 IU/L (35-105) H 09/30/21 04:12 Troponin T Baseline 22 ng/L (0-10) H 09/28/21 19:05 Troponin T 120 Minute 17.25 ng/L (0-10) H 09/28/21 20:26 Delta Troponin T -4.75 ABS# (0-10) L 09/28/21 20:26 Troponin T Hi Sens 6Hr 18.46 ng/L (0-10) H 09/29/21 01:00 Troponin T Hi Sens 6Hr Delta -3.54 ng/L (0-12) L 09/29/21 01:00 NT-Pro-B Natriuret Pep 8662 pg/mL (0-125) H 09/28/21 19:05 Total Protein 6.4 g/dL (6.6-8.7) L 09/30/21 04:12 Albumin 3.7 g/dL (3.5-5.2) 09/30/21 04:12 Globulin 2.7 g/dL (1.3-4.6) 09/30/21 04:12 TSH 3.54 uIU/mL (0.27-4.20) 09/29/21 01:00 Adenovirus (PCR) Detected (NOT DETECT) A 09/28/21 21:05 Coronavirus 229E (PCR) Not detected (NOT DETECT) 09/28/21 19:05 Hepatitis A IgM Ab Non-reactive (Nonreactive) 09/29/21 01:00 Hep Bs Antigen Non-reactive (Nonreactive) 09/29/21 01:00 Hep Bs Antibody 3.5 (11.5-1000) L 09/29/21 01:00 Hep B Core Total Ab Non-reactive (Nonreactive) 09/29/21 01:00 Hepatitis C Antibody Non-reactive (Nonreactive) 09/29/21 01:00 SARS-CoV-2 (PCR) Not detected (NOT DETECT) 09/28/21 19:05 CT Chest: Radiologist's impression: Chest CTA 1. Negative for pulmonary embolus. 2. Moderate bilateral pleural effusions. 3. Mild cardiomegaly. 4. Bilateral dependent atelectasis versus infiltrate. Echo: My impression: ?Normal left ventricular size and systolic function, EF 55 %. ?No gross regional wall motion abnormalities.? Segmental wall ?motion analysis difficult because of the atrial fibrillation ?rapid ventricular rate. ?[id number] tricuspid valve regurgitation.? Estimated ?pulmonary artery peak systolic pressure of 38 mmHg. ?Biatrial enlargement-moderately dilated right atrium mildly ?dilated left atrium ?Trace mitral valve regurgitation. ?There is no pericardial effusion. ?There are no intracardiac masses. ?No previous study is available for comparison EKG 1: My Interpretation: Atrial fibrillation with rapid ventricular rate. Poor our progression. Nonspecific ST changes. EKG computer-generated impression: Chest X-Ray 09/28/21 18:52 IMPRESSION: 1. Mild cardiomegaly and pulmonary vascular congestion. 2. Bilateral hilar to lower lobe atelectasis versus early infiltrate. Chest CTA 09/28/21 18:54 IMPRESSION: 1. Negative for pulmonary embolus. 2. Moderate bilateral pleural effusions. 3. Mild cardiomegaly. 4. Bilateral dependent atelectasis versus infiltrate. Liver Ultrasound 09/29/21 01:19 IMPRESSION: 1. Cirrhotic appearance to the liver. No mass. 2. Abnormal gallbladder. No cholelithiasis but there is diffuse gallbladder wall thickening with edema. This may be related to hepatocellular disease or acute acalculous cholecystitis. 3. No bile duct dilatation. 4. Small RIGHT pleural effusion. A&P Assessment and plan (1) Atrial fibrillation with RVR: Patient was in atrial fibrillation rapid ventricular rate. Currently she seems to be in sinus rhythm with frequent PACs. She is on amiodarone, metoprolol, diltiazem and digoxin. I may continue the amiodarone and metoprolol. The diltiazem and digoxin may be held at this point. Status: Acute (2) CHF (congestive heart failure): Most likely the atrial fibrillation coupled with LV diastolic dysfunction may be causing the heart failure. Possibility of her having underlying coronary ischemia causing this is a consideration, especially in view of the family history. For further evaluation, a myocardial perfusion imaging would be appropriate. This was discussed with the patient in detail which is understood well. We may go out and schedule her for a Lexiscan/sestamibi/sestamibi stress test tomorrow. Status: Acute (3) Benign essential hypertension with target blood pressure below 140/90: Currently the blood pressure is a stage II. We will try to optimize the antihypertensive medications. Status: Acute Plan Other problems are Mild anemia Mild hypokalemia Patient may be carefully treated with IV diuretics. Continue on the amiodarone and metoprolol. Based on the results of the myocardial perfusion imaging, further recommendations will be made. 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
[2021-09-30] MEDS: amiodarone 200 mg Tablet PO (12:11)
--- NOTE | 2021-09-30 12:52 | PM.PN ---
Subjective Subjective: Overnight patient's heart rate had remained in 130s. She was started on digoxin load with last dose to be given at 8 AM which was not given till 9 AM. Cardizem was stopped. After receiving the digoxin load and oral metoprolol while being on amiodarone drip her atrial fibrillation converted to normal sinus rhythm with rate running around 60 to 80 bpm depending on ambulation. Patient states she is feeling a lot better. Saturation has remained well on room air. Vitals/I&O/Wt Last Vital Signs Temp 97.5 F L 09/30/21 04:00 Pulse 80 09/30/21 09:13 Resp 18 09/30/21 09:13 BP 131/90 09/30/21 04:00 Pulse Ox 94 09/30/21 04:00 09/29/21 09/30/21 09/30/21 22:59 06:59 14:59 Intake Total 774.303 / 1558.470 240 / 1798.470 671.697 / 671.697 Balance 774.303 / 1558.470 240 / 1798.470 671.697 / 671.697 Weight last 48 hrs Weight 67.903 kg Weight 610.989 kg Physical Exam Narrative: General: No acute distress, AO x3, pleasant HEENT: PERRLA, pupils bilaterally equal and reactive Chest: Normal vesicular breath sounds, bilateral lower zone fine crackles, equal good air entry bilaterally CVS: S1-S2 irregularly irregular, pansystolic murmur in fourth intercostal space left retrosternal,no gallops, no rubs, JVD elevated Abdomen: Soft, nontender, no organomegaly, bowel sounds present Neuro: No focal deficits, no facial deformity, AO x3, power 5/5 in all limbs Data : 09/30/21 04:12 09/30/21 04:12 A&P Assessment and plan (1) Atrial fibrillation with RVR: Continue with amiodarone drip as per protocol. Switch to 200 mg twice daily. Continue with metoprolol 50 mg twice daily. Will uptitrate as per blood pressures and heart rate on ambulation. Check digoxin level in a.m. Echocardiogram results appreciated. EF found to be 55% with no regional wall motion abnormality, moderate to severe TR with PASP of 38, biatrial enlargement with moderately dilated RA. Trevor vas score: 3 for age, female sex, history of hypertension. Start on full dose Lovenox 1 mg/kg body weight. Patient is agreeable for starting anticoagulation after discussing benefits versus risk factors for stroke prevention. Status: Acute (2) CHF (congestive heart failure): With preservation fraction. Diastolic in nature. Switch to oral Lasix 40 mg for now. Replete potassium. Strict input output charting, daily weights. Status: Acute (3) Transaminitis: Most likely secondary to congestive heart failure. Appreciate hepatitis panel and liver ultrasound. Monitor on a daily basis. Status: Acute (4) Human adenovirus infection: no current pneumonia, however viral URI may be the precipitating cause of A fib with RVR Contact + droplet precautions Status: Acute Plan Full code. Cardiac diet. Fluid restriction up to 1500 cc. Protonix for PUD prophylaxis. Lovenox will suffice for DVT prophylaxis Attestations Medical Necessity Statement*: Requires further hospitalization for management of atrial fibrillation with rapid ventricular response, congestive heart failure of diastolic type Time Spent in Patient Care: Greater than 35 minutes Coding Level of Care Code Acute Supervisor Pairing And Inspecting for [facility] Fwd Diagnoses Atrial fibrillation with RVR I48.91 CHF (congestive heart failure) I50.9 Transaminitis R74.01 Human adenovirus infection B34.0
[2021-09-30] MEDS: amiodarone 200 mg Tablet 400 MG PO (16:57)
[2021-09-30] MEDS: losartan 50 mg Tablet 25 MG PO (16:58)
--- NOTE | 2021-09-30 19:38 | PC.NURSE ---
Shift Note Frequent safety and comfort rounds continue. Orders and/or nursing care completed as indicated. Patient monitored for response to intervention and treatment(s). Pt converted from Afib w/rvr to SR with occ. PAC's w/HR in upper 60s to 70s. Informed doctors. Education provided includes lexiscan stress test, amiodarone, metoprolol,losartan, afib. Patient and/or charter representative verbalizes understanding Will continue to monitor.
[2021-10-01] VITALS (9 sets, daily range): BP systolic 117–164; BP diastolic 58–87; PULSE 56–62; RESP 13–18; TEMP 36.4–37.4; O2SAT 92–99
[2021-10-01] MEDS: enoxaparin 80 mg/0.8 mL Syringe 70 MG SUBCUT ×2 (00:07→13:25)
[2021-10-01 04:38] LABS: Alanine Aminotransferase 123 U/L (0-33); Albumin Level 3.4 g/dL (3.5-5.2); Alkaline Phosphatase 163 IU/L (35-105); Anion Gap 12.5 (5-19); Aspartate Amino Transferase 43 U/L (0-32); Blood Urea Nitrogen 16 mg/dL (8-23); Calcium 8.9 mg/dL (8.5-10.5); Carbon Dioxide 26 mmol/L (22-29); Chloride 99 mmol/L (98-107); Globulin 2.8 g/dL (1.3-4.6); Glomerular Filtration Rate 100.3 mL/min (90-130); Glucose 98 mg/dL (65-115); Osmolality Calculated 279 mOsm/kg (285-295); Potassium 3.5 mmol/L (3.5-5.1); Sodium 134 mmol/L (136-145); Total Bilirubin 0.4 mg/dL (0.15-1.2); Total Protein 6.2 g/dL (6.6-8.7)
[2021-10-01 04:53] LABS: Digoxin 0.8 ng/mL (0.6-1.2)
--- NOTE | 2021-10-01 05:49 | PC.NURSE ---
pt rested quietly throughout shift. VSS. Pt up to bathroom independently. Adequate UOP. Pt NPO since midnight. Hourly rounding done. All needs met.
--- NOTE | 2021-10-01 06:41 | ECG_ITS ---
[facility] Test Date: 2021-10-01 Pat Name: Glory Thomas Department: Room: 106 Gender: Female Chancellor: Judjohnathan Spannerton : 1955 Requested By: Murtaza Gar Order Number: [id number] Jay MD: Murtaza Gar M.D. Interpretive Statements NAME OF STUDY: LEXISCAN SESTAMIBI STRESS TEST INDICATION: afib with rvr, PROCEDURE: At the baseline, the EKG revealed sinus bradycardia with some nonspecific ST changes. Poor R wave progression. The baseline blood pressure was 130/81 mm Hg with a heart rate of 56 beats/min. Lexiscan was infused over a period of 20 seconds. A total of 0.4 milligrams of Lexiscan was infused. The stress phase was continued for a total of 5 minutes. Heart rate at the end of the stress phase was 64 with a blood pressure 133/74. The EKG at the peak infusion revealed no significant changes. Sestamibi was injected 20 seconds after the Lexiscan infusion. Blood pressure at the end of the recovery phase was 135/70 with a heart rate of 62 per minute. CONCLUSION: 1. No significant EKG changes with the LexiScan infusion 2. No LexiScan induced chest pain or cardiac arrhythmia 3. Normal blood pressure and heart rate response 4. Sestamibi/sestamibi perfusion scan pending; see separate report. Electronically Signed On 10-02-2021 11:07:54 ORDER CHECKER PACKER PROCESSER by Murtaza Gar M.D. [id number]
--- NOTE | 2021-10-01 07:00 | NMCV_ITS ---
NM pooja perf SPECT r/s* [id number] Glory Thomas Age: 66 Gender: F : 1955 Exam Date: 10/01/2021 08:44 Ordering Phys: Murtaza Gar MD ([email or web address]) Technologist: MARLEN Marie Exam Location: [facility] Indications: A-fib RVR STRESS TEST Please see separate stress test report in [facility] for full findings IMAGE PROTOCOL Rest/Stress 1 Lexiscan Day Radiopharmaceutical Dose (mCi) Administration Site Administered by Rest: Tc-99m 10.8 IV MARLEN Marie Sestamibi Stress:Tc-99m 32.6 IV MARLEN Marie Sestamibi Rest: 01-Oct-2021 60 Discovery 630 Stress: 01-Oct-2021 45 Discovery 630 0.4mg Lexiscan. Images obtained in supine and prone position. SPECT RESULTS Technical Quality: Excellent Raw Data Analysis: Normal Image Corrections: No attenuation or motion correction applied Summed Stress Score: 0 Summed Rest Score: 1 Summed Difference Score: 0 PERFUSION FINDINGS Fairly uniform myocardial tracer uptake with no significant perfusion abnormalities. FUNCTIONAL RESULTS (calculated via Gated SPECT) Stress Image LV EF (%): 53 Stress EDV (mL):78 TID: 1.16 Stress ESV (mL):37 FUNCTIONAL FINDINGS: Segmental wall motion analysis revealing no gross wall motion abnormalities IMPRESSIONS 1. Myocardial perfusion imaging revealing fairly uniform myocardial tracer uptake with no significant perfusion abnormalities. 2. Normal LV ejection fraction of 53%. 3. LV wall motion analysis revealing no gross wall motion normalities. 4. Normal LV volume. 5. Elevated transischemic dilatation ratio, may suggest endocardial ischemia. However the positive predictive value of this finding is limited. Possibly no significant coronary ischemia, based on the above findings Dr Murtaza Gar MD FACC (Electronically Signed) Final Date: 01 October 2021 12:10 S
[2021-10-01] MEDS: FUROsemide 40 mg Tablet PO (08:07)
[2021-10-01] MEDS: amiodarone 200 mg Tablet 400 MG PO ×2 (08:08→17:47)
[2021-10-01] MEDS: losartan 50 mg Tablet 25 MG PO (08:08)
[2021-10-01] MEDS: pantoprazole DR 40 mg Tablet PO (08:09)
[2021-10-01] MEDS: metoprolol tartrate 25 mg Tablet 50 MG PO ×2 (08:09→17:48)
--- NOTE | 2021-10-01 12:41 | PC.SOCIAL ---
IMM update IMM updated with patient. Verbalized an understanding. Copy Pg 2 provided. Initialled, dated, timed, and placed in chart.
--- NOTE | 2021-10-01 13:14 | PM.DCS ---
Discharge Providers Date of Admission: 09/28/21 20:31 Date of Discharge: October 01, 2021 Attending Provider at Admission: Anna Marie Oliveros MD Attending Provider at Discharge: Baldo Reyes MD Consults: Cardiology: Dr. Gar Primary Care Provider: Adrien Platt MD Diagnoses at Discharge Discharge Diagnosis (1) Atrial fibrillation with RVR: Status: Acute (2) CHF (congestive heart failure): Status: Acute (3) Benign essential hypertension with target blood pressure below 140/90: Status: Acute Reason for Visit Reason for Visit: chest pain, SOB Brief History: Glory Thomas is a 66 year old female with a longstanding history of hypertension, is admitted to hospital with complaints of palpitation, dizziness or shortness of breath. This patient apparently has been in her baseline state of health up until 3 weeks ago when she started having palpitations.? The episodes may last for a couple of days and then subsides spontaneously.? So far she had 3 similar episodes of palpitations, each lasting for up to 2 days.? She was seen by Dr. Platt? with this complaint.as an outpatient? She had a chest x-ray which revealed features of congestive heart failure.? She is admitted to hospital for further evaluation and management. This patient has a history of irregular heartbeat, initially diagnosed 10 years ago.? At that time she was seen by a scan coordinator and had some work-up done at the [facility] and [place].? Apparently she never had any medications.? She was doing okay up until recently when she tried having more severe palpitations lasting longer and making her dizzy, lightheaded and short of breath.? She has no previous history for any coronary artery disease or myocardial infarction.? No history for heart failure.? She has been taking medication for the high blood pressure.? Lately her blood pressure has been staying out of control.? The systolic blood pressure has been in the 1 40-1 50 range. She denies any fever or chills.? No cough.? No other specific complaints.? Her father had myocardial infarction at the age of 49.? No other relevant family history.? Denies any smoking abuse or alcohol abuse at this point. Hospital Course Hospital Course Transferred to the hospital for evaluation management of atrial fibrillation with rapid ventricular response. She was started on Cardizem drip on admission. Her heart rate was difficult to control and she failed Cardizem drip. She was transitioned over to amiodarone drip and even given digoxin loading dose. While being on amiodarone she converted back to normal sinus rhythm. Her heart rate has been well controlled on amiodarone and metoprolol. Because of difficult to control rapid ventricular response cardiology was consulted. Patient once was in normal sinus rhythm remained rate controlled. Because of high concerns for possible ischemia given significant family history she underwent Lexiscan stress test which is negative for any ischemic abnormality. She is been discharged in hemodynamically stable condition on oral amiodarone and metoprolol. Her antihypertensives have been adjusted. She is advised to follow-up with cardiology within next 2 weeks. Physical Exam Narrative: General: No acute distress, AO x3, pleasant HEENT: PERRLA, pupils bilaterally equal and reactive Chest: Normal vesicular breath sounds, bilateral lower zone fine crackles, equal good air entry bilaterally CVS: S1-S2 irregularly irregular, pansystolic murmur in fourth intercostal space left retrosternal,no gallops, no rubs, JVD elevated Abdomen: Soft, nontender, no organomegaly, bowel sounds present Neuro: No focal deficits, no facial deformity, AO x3, power 5/5 in all limbs Discharge Data Studies Completed and Pending Completed Studies During Hospitalization Category Date Time Status CTA chest [CT angio chest PE protcl [id number]] Urgent Cat Scan 09/28/21 18:54 Completed Cardiac Stress Test MIBI [Sestamibi Stress Test Request Exams 10/01/21 06:41 Draft ] Routine XR chest 1V portable [id number] Stat Exams 09/28/21 18:52 Completed NM mibi stress rest [NM pooja perf SPECT r/s* [id number]] Nuc Med 10/01/21 07:00 Completed Routine CV. echo complete* [id number] Routine Ultrasound 09/29/21 01:04 [place] liver [id number] Routine Ultrasound 09/29/21 01:19 Completed Radiology Impressions Chest X-Ray 09/28/21 18:52 IMPRESSION: 1. Mild cardiomegaly and pulmonary vascular congestion. 2. Bilateral hilar to lower lobe atelectasis versus early infiltrate. Chest CTA 09/28/21 18:54 IMPRESSION: 1. Negative for pulmonary embolus. 2. Moderate bilateral pleural effusions. 3. Mild cardiomegaly. 4. Bilateral dependent atelectasis versus infiltrate. Liver Ultrasound 09/29/21 01:19 IMPRESSION: 1. Cirrhotic appearance to the liver. No mass. 2. Abnormal gallbladder. No cholelithiasis but there is diffuse gallbladder wall thickening with edema. This may be related to hepatocellular disease or acute acalculous cholecystitis. 3. No bile duct dilatation. 4. Small RIGHT pleural effusion. Lexiscan nuclear perfusion study: IMPRESSIONS ?1.? Myocardial perfusion imaging revealing fairly uniform myocardial tracer?uptake with no significant perfusion abnormalities. ?2.? Normal LV ejection fraction of 53%. ?3.? LV wall motion analysis revealing no gross wall motion normalities. ?4.? Normal LV volume. ?5.? Elevated transischemic dilatation ratio, may suggest endocardial ischemia.? ?However the positive predictive value of this finding is limited.?Possibly no significant coronary ischemia, based on the above findings ?Dr Murtaza Gar MD FACC ?(Electronically Signed) ?Final Date:? ? ? 01 October 2021 ? 12:10 Echocardiogram: CONCLUSIONS ?Normal left ventricular size and systolic function, EF 55 %. ?No gross regional wall motion abnormalities.? Segmental wall?motion analysis difficult because of the atrial fibrillation ?rapid ventricular rate. ?[id number] tricuspid valve regurgitation.? Estimated?pulmonary artery peak systolic pressure of 38 mmHg. ?Biatrial enlargement-moderately dilated right atrium mildly?dilated left atrium ?Trace mitral valve regurgitation. ?There is no pericardial effusion. ?There are no intracardiac masses. ?No previous study is available for comparison. ?Dr Murtaza Gar MD FACC ?(Electronically Signed) ?Final Date:? ? ? 29 September 2021 ? 10:17 Laboratory Results WBC 8.1 10^3/uL (4.0-10.0) 09/30/21 04:12 RBC 3.73 10^6/uL (4.1-5.3) L 09/30/21 04:12 Hgb 10.9 g/dL (11.5-15.3) L 09/30/21 04:12 Hct 32.7 % (37.0-47.0) L 09/30/21 04:12 MCV 87.7 fl (81-99) 09/30/21 04:12 MCH 29.2 pg (28.0-34.0) 09/30/21 04:12 MCHC 33.3 g/dL (30.0-36.0) 09/30/21 04:12 RDW 13.2 % (12.1-15.1) 09/30/21 04:12 Plt Count 190 10^3/cmm (130-400) 09/30/21 04:12 MPV 10.5 fL (7.4-10.4) H 09/30/21 04:12 Neut % (Auto) 61.6 % 09/30/21 04:12 Lymph % (Auto) 26.4 % 09/30/21 04:12 Alcorn % (Auto) 10.0 % 09/30/21 04:12 Eos % (Auto) 1.0 % 09/30/21 04:12 Baso % (Auto) 0.6 % 09/30/21 04:12 Neut # (Auto) 5.02 10^3/uL (1.8-7.7) 09/30/21 04:12 Lymph # (Auto) 2.2 10^3/uL (0.8-4.8) 09/30/21 04:12 Alcorn # (Auto) 0.8 10^3/uL (0.2-0.9) 09/30/21 04:12 Eos # (Auto) 0.1 10^3/uL (0.0-0.8) 09/30/21 04:12 Baso # (Auto) 0.1 10^3/uL (0.0-0.1) 09/30/21 04:12 Nucleated RBC % (auto) 0 % 09/30/21 04:12 Nucleated RBCs # 0.0 /100WBC 09/30/21 04:12 Sodium 134 mmol/L (136-145) L 10/01/21 03:47 Potassium 3.5 mmol/L (3.5-5.1) 10/01/21 03:47 Chloride 99 mmol/L (98-107) 10/01/21 03:47 Carbon Dioxide 26 mmol/L (22-29) 10/01/21 03:47 Anion Gap 12.5 (5-19) 10/01/21 03:47 BUN 16 mg/dL (8-23) 10/01/21 03:47 Creatinine 0.6 mg/dL (0.5-0.9) 10/01/21 03:47 GFR Calculation 100.3 mL/min (90-130) 10/01/21 03:47 Glucose 98 mg/dL (65-115) 10/01/21 03:47 Calculated Osmolality 279 mOsm/kg (285-295) L 10/01/21 03:47 Calcium 8.9 mg/dL (8.5-10.5) 10/01/21 03:47 Total Bilirubin 0.4 mg/dL (0.15-1.2) 10/01/21 03:47 AST 43 U/L (0-32) H 10/01/21 03:47 ALT 123 U/L (0-33) H 10/01/21 03:47 Alkaline Phosphatase 163 IU/L (35-105) H 10/01/21 03:47 Troponin T Baseline 22 ng/L (0-10) H 09/28/21 19:05 Troponin T 120 Minute 17.25 ng/L (0-10) H 09/28/21 20:26 Delta Troponin T -4.75 ABS# (0-10) L 09/28/21 20:26 Troponin T Hi Sens 6Hr 18.46 ng/L (0-10) H 09/29/21 01:00 Troponin T Hi Sens 6Hr Delta -3.54 ng/L (0-12) L 09/29/21 01:00 NT-Pro-B Natriuret Pep 8662 pg/mL (0-125) H 09/28/21 19:05 Total Protein 6.2 g/dL (6.6-8.7) L 10/01/21 03:47 Albumin 3.4 g/dL (3.5-5.2) L 10/01/21 03:47 Globulin 2.8 g/dL (1.3-4.6) 10/01/21 03:47 TSH 3.54 uIU/mL (0.27-4.20) 09/29/21 01:00 Digoxin 0.8 ng/mL (0.6-1.2) 10/01/21 03:47 Adenovirus (PCR) Detected (NOT DETECT) A 09/28/21 21:05 Coronavirus 229E (PCR) Not detected (NOT DETECT) 09/28/21 19:05 Hepatitis A IgM Ab Non-reactive (Nonreactive) 09/29/21 01:00 Hep Bs Antigen Non-reactive (Nonreactive) 09/29/21 01:00 Hep Bs Antibody 3.5 (11.5-1000) L 09/29/21 01:00 Hep B Core Total Ab Non-reactive (Nonreactive) 09/29/21 01:00 Hepatitis C Antibody Non-reactive (Nonreactive) 09/29/21 01:00 SARS-CoV-2 (PCR) Not detected (NOT DETECT) 09/28/21 19:05 Vitals Last Vital Signs Temp 98.9 F 10/01/21 12:00 Pulse 58 L 10/01/21 12:00 Resp 18 10/01/21 12:00 BP 164/87 10/01/21 12:00 Pulse Ox 99 10/01/21 12:00 Discharge Plan Discharge Patient Disposition: Home Condition: Stable Prescriptions: New Adult Low Dose Aspirin 81 mg tablet,delayed release (DR/EC) 81 mg PO DAILY Qty: 30 0RF Eliquis 5 mg tablet 5 mg PO BID Qty: 60 0RF metoprolol tartrate 50 mg tablet 50 mg PO BID Qty: 60 0RF losartan 50 mg tablet 50 mg PO DAILY Qty: 30 0RF Pacerone 200 mg Tablet 400 mg PO BID Qty: 90 0RF Rx Instructions: 400 mg 2 times a day for next 7 days after that 200 mg twice daily for next 7 days after that 200 mg daily potassium chloride 10 mEq capsule, extended release 10 meq PO DAILY Qty: 30 0RF furosemide [Lasix] 20 mg tablet 20 mg PO QAM Qty: 30 0RF Discontinued propranolol 40 mg tablet 40 mg PO TID 0RF Referrals: Adrien Platt MD [Primary Care Provider] - 7-10 days Sarah Beth De La Garza FNP [Nurse Practitioner] - 2 weeks Discharge Diet: Cardiac Discharge Activity: Resume usual activity Patient Instructions: Opioid Safety Activity Restrictions/Additional Instructions: Take amiodarone 400 mg twice daily for next 7 days followed by 200 mg twice daily for 7 days and then 200 mg daily. Do not take propranolol. Take metoprolol 50 mg twice daily. For blood pressure losartan 50 mg daily have been started. Please check your blood pressure twice daily and maintain a blood pressure diary and follow-up with your primary care provider within next 1 week for further adjustment of antihypertensives. Lasix is the water pill which has been started for you. Take 20 mg daily. Eliquis is a blood thinner which is supposed to take 5 mg twice daily. Discharge Attestations Time Spent in Discharge Care*: greater than 30 min Specific Discharge Activities: educating patient, discussing with pcp/other providers, discussing with family caseworker/social workers/dc planners, documenting/other paperwork and evaluating patient/reviewing data Status at Discharge: Cognitive status at discharge: cognitively intact, Behavioral status at discharge: cooperative, Functional status at discharge: independent ambulation, Overall status at discharge: patient is back to baseline Quality Metrics Clinical Quality Measures [ No reported AMI, CVA or VTE this stay] Coding Level of Care Code Acute Chg FW DC note History Comprehensive Exam Comprehensive Medical Decision Making High Complexity Diagnoses Atrial fibrillation with RVR I48.91 CHF (congestive heart failure) I50.9 Benign essential hypertension with target blood pressure below 140/90 I10
[2021-10-01] MEDS: potassium chloride ER 20 mEq Tablet 40 MEQ PO (13:23)
[2021-10-01 13:49] LABS: Chol HDL Ratio 2.05 mg/dL (0.0-4.40); Cholesterol 133 mg/dL (0-200); HDL Cholesterol 65 mg/dL (60-100); LDL Cholesterol Calculated 54 mg/dL (50-129); Triglycerides 69 mg/dL (0-150); VLDL Cholestrol Calculation 14 mg/dL (0-30)
--- NOTE | 2021-10-01 14:16 | PM.PN ---
Subjective Subjective: General continues to remain in sinus rhythm. Blood pressure seems to be in the 150s. She had a myocardial perfusion imaging today. She was found to have no evidence of any significant ischemia. Denies any chest pain or shortness of breath. No more palpitations. No other specific complaints. Medications: Medication Review Details: Current Medications Acetaminophen (Acetaminophen 325 Mg Tablet) 650 mg PO Q6H PRN PRN Reason: Mild/Mod Pain Or Temp >/= 101 Last Admin: 09/29/21 01:56 Dose: 650 mg Documented by: Aminophylline (Aminophylline 25 Mg/Ml Sdv 10 Ml) 25 mg IVP Q2M PRN PRN Reason: see dose instructions Stop: 10/02/21 06:41 Amiodarone HCl (Amiodarone 200 Mg Tablet) 400 mg PO BID [facility] Last Admin: 10/01/21 08:08 Dose: 400 mg Documented by: Enoxaparin Sodium (Enoxaparin 80 Mg/0.8 Ml Syringe) 70 mg SUBCUT Q12H [facility] Last Admin: 10/01/21 13:25 Dose: 70 mg Documented by: Furosemide (Furosemide 40 Mg Tablet) 40 mg PO DAILY@0800 [facility] Last Admin: 10/01/21 08:07 Dose: 40 mg Documented by: Amiodarone HCl 900 mg/Dextrose/ IV Miscellaneous Supplies 518 mls @ 0 mls/hr IV .Q0M [facility]; Protocol Last Titration: 09/30/21 12:21 Dose: Infused Documented by: Losartan Potassium (Losartan 50 Mg Tablet) 25 mg PO DAILY [facility] Last Admin: 10/01/21 08:08 Dose: 25 mg Documented by: Metoprolol Tartrate (Metoprolol Tartrate 25 Mg Tablet) 50 mg PO BID@0900,2100 [facility] Last Admin: 10/01/21 08:09 Dose: 50 mg Documented by: Nitroglycerin (Nitroglycerin 0.4 Mg Sublingual Tablet) 0.4 mg SUBLINGUAL Q5M PRN PRN Reason: CHEST PAIN Stop: 10/02/21 06:41 Ondansetron HCl (Ondansetron 2 Mg/Ml Sdv 2 Ml) 4 mg IVP Q8H PRN PRN Reason: vomiting, or N/V if npo Ondansetron HCl (Ondansetron 2 Mg/Ml Sdv 2 Ml) 4 mg IVP Q2M PRN PRN Reason: NAUSEA Pantoprazole Sodium (Pantoprazole Dr 40 Mg Tablet) 40 mg PO DAILY [facility] Last Admin: 10/01/21 08:09 Dose: 40 mg Documented by: Potassium Chloride (Potassium Chloride Er 20 Meq Tablet) 40 meq PO DAILY [facility] Last Admin: 10/01/21 13:23 Dose: 40 meq Documented by: Regadenoson (Regadenoson 0.4 Mg/5 Ml Syringe) 0.4 mg IVP ONCE PRN PRN Reason: Lexiscan Stress Test Vitals/I&O/Wt Last Vital Signs Temp 98.9 F 10/01/21 12:00 Pulse 58 L 10/01/21 12:00 Resp 18 10/01/21 12:00 BP 164/87 10/01/21 12:00 Pulse Ox 99 10/01/21 12:00 09/30/21 10/01/21 10/01/21 22:59 06:59 14:59 Intake Total 410 / 1081.697 0 / 1081.697 240 / 240 Balance 410 / 1081.697 0 / 1081.697 240 / 240 Physical Exam Narrative: GENERAL: The patient is alert and oriented times three. Not in any acute distress. HEENT: No significant pallor, icterus or lymphadenopathy. The pupils are reactant to light. Oral cavity: There are no mucous membrane lesions. NECK: Trachea appears to be central. No masses noted. No JVD or thyromegaly appreciated. No carotid bruit. RESPIRATORY: Chest is symmetrical. No intercostals muscle retraction or any accessory muscle activation. There is no chest wall tenderness. Breath sounds are heard bilaterally. No rales or rhonchi heard. No evidence of any consolidation. BREASTS: Deferred. HEART: The PMI is in the 5th left intercostals space just inside the midclavicular line. No palpable precordial events. S1 and S2 are normal. No S3 or S4 heard. No pericardial rub or any click heard. ABDOMEN: No vessel pulsations or distention. No tenderness. No organomegaly appreciated. No abdominal bruit. Bowel sounds are normally heard. : Deferred. RECTAL: Deferred. LYMPHATIC: No lymphadenopathy noted in the neck or groin. EXTREMITIES: No edema or cyanosis. MUSCULOSKELETAL: No acute joint deformities or swelling SKIN: There are no significant scars or skin rash noted. NEUROPSYCHIATRIC: The patient is alert and oriented x3. Appears to be in a good mood. The higher functions are grossly within normal limits. No tremors or rigidity noted. Data : 09/30/21 04:12 10/01/21 03:47 Other Labs: Laboratory Last Values WBC 8.1 10^3/uL (4.0-10.0) 09/30/21 04:12 RBC 3.73 10^6/uL (4.1-5.3) L 09/30/21 04:12 Hgb 10.9 g/dL (11.5-15.3) L 09/30/21 04:12 Hct 32.7 % (37.0-47.0) L 09/30/21 04:12 MCV 87.7 fl (81-99) 09/30/21 04:12 MCH 29.2 pg (28.0-34.0) 09/30/21 04:12 MCHC 33.3 g/dL (30.0-36.0) 09/30/21 04:12 RDW 13.2 % (12.1-15.1) 09/30/21 04:12 Plt Count 190 10^3/cmm (130-400) 09/30/21 04:12 MPV 10.5 fL (7.4-10.4) H 09/30/21 04:12 Neut % (Auto) 61.6 % 09/30/21 04:12 Lymph % (Auto) 26.4 % 09/30/21 04:12 Barnes % (Auto) 10.0 % 09/30/21 04:12 Eos % (Auto) 1.0 % 09/30/21 04:12 Baso % (Auto) 0.6 % 09/30/21 04:12 Neut # (Auto) 5.02 10^3/uL (1.8-7.7) 09/30/21 04:12 Lymph # (Auto) 2.2 10^3/uL (0.8-4.8) 09/30/21 04:12 Barnes # (Auto) 0.8 10^3/uL (0.2-0.9) 09/30/21 04:12 Eos # (Auto) 0.1 10^3/uL (0.0-0.8) 09/30/21 04:12 Baso # (Auto) 0.1 10^3/uL (0.0-0.1) 09/30/21 04:12 Nucleated RBC % (auto) 0 % 09/30/21 04:12 Nucleated RBCs # 0.0 /100WBC 09/30/21 04:12 Sodium 134 mmol/L (136-145) L 10/01/21 03:47 Potassium 3.5 mmol/L (3.5-5.1) 10/01/21 03:47 Chloride 99 mmol/L (98-107) 10/01/21 03:47 Carbon Dioxide 26 mmol/L (22-29) 10/01/21 03:47 Anion Gap 12.5 (5-19) 10/01/21 03:47 BUN 16 mg/dL (8-23) 10/01/21 03:47 Creatinine 0.6 mg/dL (0.5-0.9) 10/01/21 03:47 GFR Calculation 100.3 mL/min (90-130) 10/01/21 03:47 Glucose 98 mg/dL (65-115) 10/01/21 03:47 Calculated Osmolality 279 mOsm/kg (285-295) L 10/01/21 03:47 Calcium 8.9 mg/dL (8.5-10.5) 10/01/21 03:47 Total Bilirubin 0.4 mg/dL (0.15-1.2) 10/01/21 03:47 AST 43 U/L (0-32) H 10/01/21 03:47 ALT 123 U/L (0-33) H 10/01/21 03:47 Alkaline Phosphatase 163 IU/L (35-105) H 10/01/21 03:47 Troponin T Baseline 22 ng/L (0-10) H 09/28/21 19:05 Troponin T 120 Minute 17.25 ng/L (0-10) H 09/28/21 20:26 Delta Troponin T -4.75 ABS# (0-10) L 09/28/21 20:26 Troponin T Hi Sens 6Hr 18.46 ng/L (0-10) H 09/29/21 01:00 Troponin T Hi Sens 6Hr Delta -3.54 ng/L (0-12) L 09/29/21 01:00 NT-Pro-B Natriuret Pep 8662 pg/mL (0-125) H 09/28/21 19:05 Total Protein 6.2 g/dL (6.6-8.7) L 10/01/21 03:47 Albumin 3.4 g/dL (3.5-5.2) L 10/01/21 03:47 Globulin 2.8 g/dL (1.3-4.6) 10/01/21 03:47 Triglycerides 69 mg/dL (0-150) 10/01/21 03:47 Cholesterol 133 mg/dL (0-200) 10/01/21 03:47 LDL Cholesterol, Calc 54 mg/dL (50-129) 10/01/21 03:47 Total VLDL Cholesterol 14 mg/dL (0-30) 10/01/21 03:47 HDL Cholesterol 65 mg/dL (60-100) 10/01/21 03:47 Cholesterol/HDL Ratio 2.05 mg/dL (0.0-4.40) 10/01/21 03:47 TSH 3.54 uIU/mL (0.27-4.20) 09/29/21 01:00 Digoxin 0.8 ng/mL (0.6-1.2) 10/01/21 03:47 Adenovirus (PCR) Detected (NOT DETECT) A 09/28/21 21:05 Coronavirus 229E (PCR) Not detected (NOT DETECT) 09/28/21 19:05 Hepatitis A IgM Ab Non-reactive (Nonreactive) 09/29/21 01:00 Hep Bs Antigen Non-reactive (Nonreactive) 09/29/21 01:00 Hep Bs Antibody 3.5 (11.5-1000) L 09/29/21 01:00 Hep B Core Total Ab Non-reactive (Nonreactive) 09/29/21 01:00 Hepatitis C Antibody Non-reactive (Nonreactive) 09/29/21 01:00 SARS-CoV-2 (PCR) Not detected (NOT DETECT) 09/28/21 19:05 A&P Assessment and plan (1) CHF (congestive heart failure): Patient is currently compensated clinically. The metacarpal which imaging was reviewed. Patient was found to have no evidence of ischemia based on the perfusion scan. I discussed in detail with the patient, the implications of test findings. At this point, patient may not require any further investigations. She may continue on the current antihypertensive medication. Status: Acute (2) Atrial fibrillation with RVR: Patient is currently in the sinus rhythm. She may continue on the amiodarone 400 mg p.o. twice daily for 1 week, daily for 1 week followed by 200 mg p.o. daily. She also be started on Eliquis 5 mg p.o. daily. Status: Acute (3) Benign essential hypertension with target blood pressure below 140/90: I agree with increasing the dose of the losartan to 50 mg p.o. daily. May gradually uptitrate the antihypertensive medications to keep the systolic blood pressure in the 120-130 range. Status: Acute Attestations Medical Necessity Statement*: If the patient continues remain stable, may be discharged home from a cardiac standpoint. May continue on the amiodarone with a tapering dose as mentioned above. Appointment the [facility] to be seen by the nurse practitioner in a week. Appointment with me in the office in [address] 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
[2021-10-01 17:40] LABS: Estmated Average Glucose 100; Hemoglobin A1C 5.1 % (4.0-6.0)
[2021-10-01] MEDS: apixaban 5 mg Tablet PO (17:53)
== END 2021-10-01 18:04 | disposition home or self-care (01) | DRG 308 ==
LOC: ER 20:52 → CSU 20:59
PROVIDERS: Admitting Provider Student in an Organized Health Care Education/Training Program; Emergency Provider Emergency Medicine; PCP Family Medicine; Visit Provider Student in an Organized Health Care Education/Training Program
DX: I48.91 Unspecified atrial fibrillation (principal); I50.31 Acute diastolic (congestive) heart failure; I11.0 Hypertensive heart disease with heart failure; Z82.49 Family history of ischemic heart disease and other diseases of the circulatory system; R74.01 Elevation of levels of liver transaminase levels; B34.0 Adenovirus infection, unspecified; D64.9 Anemia, unspecified; E87.6 Hypokalemia; Z79.82 Long term (current) use of aspirin; Z79.01 Long term (current) use of anticoagulants
CPT/HCPCS: 36415; 71045; 71275; 76705; 78452; 80053; 80061; 80162; 83036; 83880; 84443; 84484; 85025; 86705; 86706; 86709; 86803; 87340; 87635; 87798; 93005; 93306; 96365; 96372; 96376; 99291; A9500; J0282; J1160; J1650; J1940; J3490; J7060; Q9967

== ENCOUNTER → 2021-11-24 11:03 | Outpatient (BNVA) | payer BC, SELFPAY | PROVIDERS: PCP Family Medicine; Visit Provider Internal Medicine Cardiovascular Disease | DX: E05.90 Thyrotoxicosis, unspecified without thyrotoxic crisis or storm (principal); E78.5 Hyperlipidemia, unspecified; I50.33 Acute on chronic diastolic (congestive) heart failure; Z79.899 Other long term (current) drug therapy; N18.9 Chronic kidney disease, unspecified | CPT/HCPCS: 80048; 80076; 83880; 84443 ==

== ENCOUNTER 2021-12-28 12:57 | Outpatient (CLI) | payer BC, SELFPAY | END 2021-12-28 12:58 | disposition home or self-care (01) | LOC: LAB 13:01 | PROVIDERS: PCP Family Medicine; Visit Provider Internal Medicine Cardiovascular Disease | DX: E05.90 Thyrotoxicosis, unspecified without thyrotoxic crisis or storm (principal) | CPT/HCPCS: 36415; 84443 ==

== ENCOUNTER 2022-02-09 09:09 | Outpatient (CLI) | payer BC, SELFPAY ==
--- NOTE | 2022-02-09 09:19 | MM_ITS ---
WS: [id number] BILATERAL SCREENING DIGITAL BREAST TOMOSYNTHESIS MAMMOGRAM WITH CAD HISTORY: SCREENING COMPARISON: 10/20/2020 and 05/23/2019 Bilateral CC and MLO views with tomosynthesis and synthetic mammography submitted. Computer aided det ection analyzed. Breast composition: There are scattered areas of fibroglandular density. No suspicious masses, microc alcifications or architectural distortion. MM/[place] [id number] IMPRESSION: BI-RADS: 1-Negative FOLLOW UP: 1 Year Follow-up
== END 2022-02-09 09:10 | disposition home or self-care (01) ==
PROVIDERS: PCP Family Medicine; Visit Provider Internal Medicine
DX: Z12.31 Encounter for screening mammogram for malignant neoplasm of breast (principal)
CPT/HCPCS: 77063; 77067

== ENCOUNTER → 2022-05-18 11:25 | Outpatient (BNVA) | payer BC, SELFPAY | PROVIDERS: PCP Family Medicine; Visit Provider Internal Medicine Cardiovascular Disease | DX: R06.02 Shortness of breath (principal); I50.30 Unspecified diastolic (congestive) heart failure; N18.9 Chronic kidney disease, unspecified; R00.1 Bradycardia, unspecified; R07.9 Chest pain, unspecified; I10 Essential (primary) hypertension; Z79.899 Other long term (current) drug therapy; E05.90 Thyrotoxicosis, unspecified without thyrotoxic crisis or storm; I48.91 Unspecified atrial fibrillation | CPT/HCPCS: 36415; 80048; 83880; 84443 ==

== ENCOUNTER → 2022-08-23 10:02 | Outpatient (BNVA) | payer OTHER, SELFPAY | PROVIDERS: PCP Family Medicine; Visit Provider Family Medicine | DX: Z51.81 Encounter for therapeutic drug level monitoring (principal); R10.13 Epigastric pain; E03.9 Hypothyroidism, unspecified; E05.90 Thyrotoxicosis, unspecified without thyrotoxic crisis or storm; I10 Essential (primary) hypertension; I48.91 Unspecified atrial fibrillation; Z79.899 Other long term (current) drug therapy; R94.39 Abnormal result of other cardiovascular function study | CPT/HCPCS: 80053; 83690; 84439; 84443; 85025; 86141 ==

== ENCOUNTER → 2022-10-25 10:55 | Outpatient (BNVA) | payer OTHER, SELFPAY | PROVIDERS: PCP Family Medicine; Visit Provider Family Medicine | DX: E03.9 Hypothyroidism, unspecified (principal); Z51.81 Encounter for therapeutic drug level monitoring; K63.5 Polyp of colon | CPT/HCPCS: 84439; 84443; 85025 ==

== ENCOUNTER → 2022-11-10 11:41 | Outpatient (BNVA) | payer OTHER, SELFPAY | PROVIDERS: PCP Family Medicine; Visit Provider Internal Medicine Cardiovascular Disease | DX: R06.02 Shortness of breath (principal) | CPT/HCPCS: 36415; 80048; 83880 ==

== ENCOUNTER 2023-02-21 13:13 | Outpatient (CLI) | payer OTHER, SELFPAY ==
--- NOTE | 2023-02-21 13:37 | XR_ITS ---
WS: [id number] Exam: XR knee RT 3V* [id number] Date/Time of Exam: 02/21/2023 1:51 PM Reason For Exam: Right knee pain Comparison 09/20/2019. There is moderate degenerative narrowing of the medial joint compartment as well as the patellofemora l joint. No fracture noted. No joint effusion. Normal soft tissues. XR/XR knee RT 3V* [id number] IMPRESSION: 1. Moderate degenerative change of the patellofemoral joint and medial joint co mpartment.
--- NOTE | 2023-02-21 13:37 | XR_ITS ---
WS: [email or web address] Exam: XR knee LT 3V* [id number] Date/Time of Exam: 02/21/2023 1:51 PM Reason For Exam: Knee pain left No acute fracture or dislocation. Mild degenerative narrowing of the medial joint compartment with ma rginal osteophytes. No joint effusion. Normal soft tissues. XR/XR knee LT 3V* [id number] IMPRESSION: 1. Mild degenerative change of the medial joint compartment. No fracture or oth er significant finding.
== END 2023-02-21 13:14 | disposition home or self-care (01) ==
PROVIDERS: PCP Family Medicine; Visit Provider Family Medicine
DX: M17.0 Bilateral primary osteoarthritis of knee (principal)
CPT/HCPCS: 73562

== ENCOUNTER 2023-02-25 09:49 | Observation (INO) | payer OTHER, SELFPAY ==
[2023-02-25] VITALS (27 sets, daily range): BP systolic 110–167; BP diastolic 71–115; PULSE 87–129; RESP 12–31; TEMP 36.6; O2SAT 90–99
--- NOTE | 2023-02-25 09:59 | ECG_ITS ---
[facility] Test Date: 2023-02-25 Pat Name: Glory Thomas Department: Room: Gender: Female Contact Lens Technician: : [id number] Requested By: Mir Cruz Order Number: [id number] Jay MD: Dane Shields M.D. Measurements Intervals [place] Rate: 129 P: 0 ME: 0 QRS: 28 QRSD: 86 T: 46 QT: 313 QTc: 459 Interpretive Statements ATRIAL FIBRILLATION WITH RAPID VENTRICULAR RESPONSE MODERATE ST DEPRESSION [0.05+ mV ST DEPRESSION] Compared to ECG 09/29/2021 00:53:01 ST (T wave) deviation now present T-wave abnormality no longer present Electronically Signed On 02-25-2023 11:42:31 CDT by Dane Shields M.D. [id number]
--- NOTE | 2023-02-25 10:05 | W.ED.ARRPALP ---
HPI - Arrhythmia/Palpitations General: Chief Complaint: Arrhythmia/Palpitations Stated Complaint: high hr Time Seen by Provider: 02/25/23 10:05 History of Present Illness: Ms Thomas is a 67-year-old lady with history of paroxysmal atrial fibrillation on anticoagulation presented the emergency department for shortness of breath with chest pain. She notes this morning having some mild upper abdominal discomfort with nausea but no vomiting. Subsequently she describes palpitations and chest discomfort associated with shortness of breath and high blood pressure with a hypertension throbbing in her head like she could hear her heartbeat. Currently feels mildly improved. Moderate intensity. Reports medication compliance and denies other recent changes in health. No other specific changes in health, exacerbating, or alleviating factors identified. Onset (ago): hour(s) Duration: constant Severity: moderate Arrhythmia history: atrial fibrillation Associated symptoms: Reports nausea, short of breath and other Review of Systems General: Reports: 10 or more systems reviewed and unremarkable except in HPI and below GI: Reports: nausea PFSH ED PFSH: Medical History Atrial fibrillation Benign essential hypertension with target blood pressure below 140/90 Human adenovirus infection Hypertension Hyperthyroidism Surgical History History of carpal tunnel repair Family History Father CAD (coronary artery disease), Onset Age: 49 [place] Mother Cancer Denies family history of Diabetes Clotting disorder Dementia Chronic kidney disease (CKD) Suicide Anesthesia complication Bleeding disorder Lung disease Stroke Social History Smoking and tobacco status: never smoked Desire information about alcohol rehabilitation?: No Substance/Drug Use: never Physical Exam Const: COMMON NORMALS: alert GENERAL APPEARANCE: cooperative and well developed HENMT: COMMON NORMALS: normocephalic and atraumatic HEAD & SCALP: normocephalic and atraumatic Eye: COMMON NORMALS: conjunctivae normal CONJUNCTIVA: Yes conjunctivae normal SCLERA: sclerae normal Neck/C-Spine: COMMON NORMALS: supple GENERAL: Yes trachea midline Resp: COMMON NORMALS: clear to auscultation bilaterally EFFORT & INSPECTION: Yes able to speak in complete sentences AUSCULTATION: clear to auscultation bilaterally Cardio: RATE: tachycardic RHYTHM: abnormal rhythm irregularly irregular GI: COMMON NORMALS: Soft to palpation PALPATION: Yes Soft to palpation and No Tenderness to palpation present (GI) Extremity: GENERAL: Yes normal exam except as noted and No edema Neuro: COMMON NORMALS: moves all extremities SENSORIUM/ORIENTATION: Yes alert and No Orientation impaired Psych: COMMON NORMALS: mental status grossly normal and Normal thought process present THOUGHT PROCESS: Normal thought process present Course Vital Signs: Vital signs: Vital Signs Temperature 98.7 F 02/26/23 12:18 Pulse Rate 45 L 02/26/23 12:18 Respiratory Rate 13 02/26/23 07:45 Blood Pressure 149/80 02/26/23 12:18 Pulse Oximetry 98 02/26/23 12:18 Oxygen Delivery Me thod Room Air 02/26/23 12:18 MDM - Arrhythmia/Palpitations Medical Decision Making 67-year-old lady presenting to the emergency department for abdominal symptoms but also palpitations. Exam as above. Nontoxic. No evidence of acute surgical abdomen. EKG notable for atrial fibrillation with rapid ventricular response. Labs with no significant hematologic abnormality. Metabolic panel without acute derangement. Mid range 2-hour delta troponin. BNP is mildly elevated. Chest x-ray with pulmonary hyperinflation, no lobar consolidation or pneumothorax. Patient treated with IV fluids, potassium replenishment. Subsequently placed on Cardizem drip for refractory A-fib with RVR despite push dose treatments. The results of ED evaluation were discussed with the patient including plan for admission due to requirement for level of care not available if discharged to prevent significant worsening/deterioration. Patient agreeable with plan. Discussed with hospitalist service who was agreeable to admit patient. Medical Records I reviewed the patient's medical records. Lab Data I reviewed the patient's lab results. 02/26/23 02:36 02/26/23 02:36 Radiology Impressions Chest X-Ray 02/25/23 10:06 IMPRESSION: 1. Pulmonary hyperinflation. No acute process noted. Laboratory Results WBC 7.0 10^3/uL (4.0-10.0) 02/25/23 10:33 RBC 4.32 10^6/uL (4.1-5.3) 02/25/23 10:33 Hgb 12.2 g/dL (11.5-15.3) 02/25/23 10:33 Hct 39.2 % (37.0-47.0) 02/25/23 10:33 MCV 90.7 fl (81-99) 02/25/23 10:33 MCH 28.2 pg (28.0-34.0) 02/25/23 10:33 MCHC 31.1 g/dL (30.0-36.0) 02/25/23 10:33 RDW 16.2 % (12.1-15.1) H 02/25/23 10:33 Plt Count 232 10^3/cmm (130-400) 02/25/23 10:33 MPV 10.0 fL (7.4-10.4) 02/25/23 10:33 Neut % (Auto) 51.0 % 02/25/23 10:33 Lymph % (Auto) 37.8 % 02/25/23 10:33 Mccracken % (Auto) 7.7 % 02/25/23 10:33 Eos % (Auto) 2.3 % 02/25/23 10:33 Baso % (Auto) 0.9 % 02/25/23 10:33 Neut # (Auto) 3.57 10^3/uL (1.8-7.7) 02/25/23 10:33 Lymph # (Auto) 2.6 10^3/uL (0.8-4.8) 02/25/23 10:33 Mccracken # (Auto) 0.5 10^3/uL (0.2-0.9) 02/25/23 10:33 Eos # (Auto) 0.2 10^3/uL (0.0-0.8) 02/25/23 10:33 Baso # (Auto) 0.1 10^3/uL (0.0-0.1) 02/25/23 10:33 Nucleated RBC % (auto) 0 % 02/25/23 10:33 Nucleated RBCs # 0.0 /100WBC 02/25/23 10:33 Sodium 141 mmol/L (136-145) 02/25/23 10:33 Potassium 3.6 mmol/L (3.5-5.1) 02/25/23 10:33 Chloride 104 mmol/L (98-107) 02/25/23 10:33 Carbon Dioxide 24 mmol/L (22-29) 02/25/23 10:33 Anion Gap 16.6 (5-19) 02/25/23 10:33 BUN 19 mg/dL (8-23) 02/25/23 10:33 Creatinine 0.8 mg/dL (0.5-0.9) 02/25/23 10:33 GFR Calculation 71.8 mL/min (90-130) L 02/25/23 10:33 Glucose 113 mg/dL (65-115) 02/25/23 10:33 Calculated Osmolality 295 mOsm/kg (285-295) 02/25/23 10:33 Calcium 9.4 mg/dL (8.5-10.5) 02/25/23 10:33 Magnesium 2.2 mg/dL (1.7-2.3) 02/25/23 10:33 Total Bilirubin 0.2 mg/dL (0.15-1.2) 02/25/23 10:33 AST 21 U/L (0-32) 02/25/23 10:33 ALT 22 U/L (0-33) 02/25/23 10:33 Alkaline Phosphatase 113 U/L (35-105) H 02/25/23 10:33 Troponin T Baseline 11 ng/L (0-10) H 02/25/23 10:33 Troponin T 120 Minute 15.18 ng/L (0-10) H 02/25/23 12:10 Delta Troponin T 4.18 ABS# (0-10) 02/25/23 12:10 NT-Pro-B Natriuret Pep 682 pg/mL (0-125) H 02/25/23 10:33 Total Protein 7.1 g/dL (6.6-8.7) 02/25/23 10:33 Albumin 4.6 g/dL (3.5-5.2) 02/25/23 10:33 Globulin 2.5 g/dL (1.3-4.6) 02/25/23 10:33 Triglycerides 101 mg/dL (0-150) 02/25/23 10:33 Cholesterol 189 mg/dL (0-200) 02/25/23 10:33 LDL Cholesterol, Calc 83 mg/dL (50-129) 02/25/23 10:33 HDL Cholesterol 86 mg/dL (60-100) 02/25/23 10:33 LDL/HDL Ratio 0.97 RATIO (0.00-3.22) 02/25/23 10:33 Cholesterol/HDL Ratio 2.20 mg/dL (0.0-4.40) 02/25/23 10:33 Lipase 35 U/L (13-60) 02/25/23 10:33 TSH 1.57 uIU/mL (0.27-4.20) 02/25/23 10:33 Discharge Plan Discharge Patient Disposition: Placed in Observation Admit Provider: Yuri Lanier Clinical Impression: Atrial fibrillation with RVR Discharge Diet: Cardiac Discharge Activity: Resume usual activity Coding Level of Care Code ED Material Controller for Germán Howard
--- NOTE | 2023-02-25 10:06 | XR_ITS ---
WS: [id number] Exam: XR chest 1V portable [id number] Date/Time of Exam: 02/25/2023 10:07 AM Reason For Exam: cp Comparison 09/28/2021. The lungs are hyperinflated and clear. Cardiomediastinal silhouette is unremarkable. No pleural effus ions. Regional bony elements are intact. Mild lower thoracic levoscoliosis. XR/XR chest 1V portable [id number] IMPRESSION: 1. Pulmonary hyperinflation. No acute process noted.
[2023-02-25] MEDS: sodium chloride 0.9% 1,000 ML 999 ML IV (10:37)
[2023-02-25 10:45] LABS: Basophils # 0.1 10^3/uL (0.0-0.1); Basophils % 0.9 %; Eosinophils # 0.2 10^3/uL (0.0-0.8); Eosinophils % 2.3 %; Hematocrit 39.2 % (37.0-47.0); Hemoglobin 12.2 g/dL (11.5-15.3); Lymphocytes # 2.6 10^3/uL (0.8-4.8); Lymphocytes % 37.8 %; Mean Corpuscular HGB Conc 31.1 g/dL (30.0-36.0); Mean Corpuscular Hemoglobin 28.2 pg (28.0-34.0); Mean Corpuscular Volume 90.7 fl (81-99); Monocytes # 0.5 10^3/uL (0.2-0.9); Monocytes % 7.7 %; Neutrophils # 3.57 10^3/uL (1.8-7.7); Nucleated Red Blood Cells % 0 %; Platelet Count 232 10^3/cmm (130-400); Red Blood Count 4.32 10^6/uL (4.1-5.3); Red Cell Distribution Width 16.2 % (12.1-15.1)
[2023-02-25 11:16] LABS: Troponin(5th) Baseline 11 ng/L (0-10)
[2023-02-25 11:22] LABS: Alanine Aminotransferase 22 U/L (0-33); Albumin Level 4.6 g/dL (3.5-5.2); Alkaline Phosphatase 113 U/L (35-105); Blood Urea Nitrogen 19 mg/dL (8-23); Calcium 9.4 mg/dL (8.5-10.5); Carbon Dioxide 24 mmol/L (22-29); Chloride 104 mmol/L (98-107); Globulin 2.5 g/dL (1.3-4.6); Glomerular Filtration Rate 71.8 mL/min (90-130); Glucose 113 mg/dL (65-115); Lipase 35 U/L (13-60); Magnesium 2.2 mg/dL (1.7-2.3); NT Pro B Type Natriuretic Pept 682 pg/mL (0-125); Osmolality Calculated 295 mOsm/kg (285-295); Sodium 141 mmol/L (136-145); Total Bilirubin 0.2 mg/dL (0.15-1.2); Total Protein 7.1 g/dL (6.6-8.7)
[2023-02-25 11:29] LABS: Anion Gap 16.6 (5-19); Aspartate Amino Transferase 21 U/L (0-32); Potassium 3.6 mmol/L (3.5-5.1)
[2023-02-25] MEDS: metoprolol tartrate 1 mg/1 mL SDV 5 mL 5 MG IVP ×2 (11:41→13:18)
--- NOTE | 2023-02-25 12:33 | ECG_ITS ---
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 Measurements Intervals [place] Rate: 98 P: 0 HI: 0 QRS: 82 QRSD: 86 T: 56 QT: 345 QTc: 441 Interpretive Statements ATRIAL FIBRILLATION ABNORMAL RHYTHM ECG Compared to ECG 02/25/2023 09:59:53 ST (T wave) deviation no longer present Electronically Signed On 02-26-2023 7:00:43 CDT by Deisi Barroso M.D. [id number]
[2023-02-25 12:38] LABS: Troponin 5 2HR 15.18 ng/L (0-10); Troponin 5 2HR Delta 4.18 ABS# (0-10)
[2023-02-25] MEDS: potassium chloride oral liq 20 mEq/15 mL UDC 60 MEQ PO (13:14)
--- NOTE | 2023-02-25 14:31 | P.HP_ITS ---
Providers/Chief Complaint Primary Care Provider: Adrien Platt MD Chief Complaint: high hr History of Present Illness Glory Thomas is a 67 year old female with a past medical history of atrial fibrillation, hypothyroidism, diastolic CHF, hypertension, on Eliquis, history of H. pylori gastritis, who presents [facility] due to chest palpitations. 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 and they were really pushing her to get all the trucks unloaded last night, she tells me that this morning at roughly 2 or so she started feeling chest palpitations, she checked her heart rates and they were in the 150s and her systolic blood pressures were in the 200s, she denies any chest pain, but does report shortness of breath, denies any lightheadedness, no dizziness, no diaphoresis, denies caffeine consumption, denies any drinking any energy drinks, currently she is in A-fib, heart rates in the 110s, she received 2 doses of metoprolol, currently being placed on a Cardizem drip, she is alert awake following all commands, she tells me that recently her Eliquis d ose was decreased to 2.5 mg twice daily as there was concern for gastric irritation on her recent scopes and she was treated for H. pylori gastritis, Review of Systems Const: Denies: fever(s) Eyes: Denies: change in vision ENMT: Denies: throat pain Card: Reports: palpitations; Denies: chest pain Resp: Reports: dyspnea GI: Denies: abdominal pain, coffee ground emesis, hematochezia or melena : Denies: flank pain, difficulty voiding or dysuria Musc: Denies: neck pain or back pain Skin/Breast: Denies: rash Neuro: Denies: headache(s), numbness in extremities or weakness in extremities Psych: Denies: anxiety Endo: Denies: polyuria or polydipsia Medications/Allergies Home Medications Medication Instructions Recorded Confirmed Last Taken Type cetirizine 10 mg tablet (All Day 10 mg PO DAILY PRN Allergic 05/18/22 02/25/23 02/25/23 History Allergy (cetirizine)) Symptoms nitroglycerin 0.4 mg sublingual 0.4 mg sublingual Q5M PRN chest 05/18/22 02/25/23 Unknown Rx tablet pain 30 days #30 tabs omeprazole 40 mg capsule,delayed 40 mg PO DAILY #30 caps 08/23/22 02/25/23 02/25/23 Rx release losartan 100 mg tablet 100 mg PO DAILY #90 tabs 09/10/22 02/25/23 02/25/23 Rx thyroid (pork) 90 mg tablet 90 mg PO DAILY #30 tabs 10/26/22 02/25/23 02/25/23 Rx ([place] Thyroid) metoprolol tartrate 25 mg tablet 25 mg PO BID #180 tabs 11/01/22 02/25/23 02/25/23 Rx amiodarone 200 mg tablet 100 mg PO DAILY #45 tabs 12/28/22 02/25/23 02/25/23 Rx apixaban 2.5 mg tablet (Eliquis) 2.5 mg PO BID #180 tabs 12/31/22 02/25/23 02/25/23 Rx ascorbic acid (vitamin C) 500 mg 500 mg PO DAILY 02/25/23 02/25/23 2 Weeks Ago History tablet (Vitamin C) ~02/11/23 ferrous sulfate 325 mg (65 mg 325 mg PO DAILY 02/25/23 02/25/23 2 Weeks Ago History iron) tablet ~02/11/23 furosemide 20 mg tablet 20 mg PO DAILY 02/25/23 02/25/23 02/25/23 History potassium chloride 10 mEq 10 meq PO DAILY 02/25/23 02/25/23 02/25/23 History capsule,extended release Allergies Allergy/AdvReac Type Severity Reaction Status Date / Time No Known Allergies Allergy Verified 02/25/23 10:04 PFSH Acute PFSH: Medical History (Updated 02/25/23 @ 14:35 by Yuri Lanier MD) Atrial fibrillation Benign essential hypertension with target blood pressure below 140/90 Human adenovirus infection Hypertension Hyperthyroidism Surgical History (Updated 02/25/23 @ 14:34 by Yuri Lanier MD) History of carpal tunnel repair Family History Father CAD (coronary artery disease), Onset Age: 49 [place] Mother Cancer Denies family history of Diabetes Clotting disorder Dementia Chronic kidney disease (CKD) Suicide Anesthesia complication Bleeding disorder Lung disease Stroke Social History (Updated 02/25/23 @ 14:34 by Yuri Lanier MD) Smoking and tobacco status: never smoked Desire information about alcohol rehabilitation?: No Substance/Drug Use: never Vitals/I&O/Wt Last Vital Signs Temp 97.8 F 02/25/23 10:00 Pulse 105 H 02/25/23 14:15 Resp 15 02/25/23 14:15 BP 152/113 02/25/23 14:15 Pulse Ox 97 02/25/23 14:15 O2 Del Method Room Air 02/25/23 10:39 02/24/23 02/25/23 02/25/23 22:59 06:59 14:59 Intake Total 1000 / 1000 Balance 1000 / 1000 Weight last 48 hrs Weight 63.503 kg Physical Exam Const: COMMON NORMALS: no acute distress and patient oriented x3 GENERAL APPEARANCE: cooperative, well kempt and well developed HENMT: COMMON NORMALS: normocephalic and Normal external nose present HEAD & SCALP: normocephalic FACE & SINUS: normal facial exam NOSE: Normal external nose present Eye: COMMON NORMALS: Equal, round and reactive pupils present, EOMs intact bilaterally and conjunctivae normal CONJUNCTIVA: Yes conjunctivae normal PUPIL: Yes Equal, round and reactive pupils present Neck/C-Spine: COMMON NORMALS: full ROM, no lymphadenopathy, no JVD, Thyroid normal and No carotid bruits THYROID: Thyroid normal Lymph: LYMPHATIC: no lymphadenopathy noted Chest: COMMONS NORMALS: normal inspection of the chest Resp: COMMON NORMALS: normal respiratory effort, No retractions, No use of accessory muscles and clear to auscultation bilaterally AUSCULTATION: clear to auscultation bilaterally Cardio: COMMON NORMALS: S1 normal heart sound present, S2 normal heart sound present, No murmurs present (Cardio) and Peripheral pulses 2+ throughout RATE: tachycardic RHYTHM: abnormal rhythm irregularly irregular HEART SOUNDS: S1 normal heart sound present and S2 normal heart sound present PERIPHERAL PULSES: Peripheral pulses 2+ throughout GI: COMMON NORMALS: Normal to inspection, nondistended, normoactive bowel sounds present, Soft to palpation and non-tender PALPATION: Yes Soft to palpation and Yes No hepatosplenomegaly present : BLADDER/KIDNEY EXAM: Yes no CVA tenderness Back/Pelvis: COMMON NORMALS: no CVA tenderness Extremity: COMMON NORMALS: normal to inspection, full ROM, capillary refill normal, no calf tenderness and no pedal edema Neuro: COMMON NORMALS: patient oriented x3, CN's II-XII intact bilaterally, moves all extremities, no focal motor deficits and no sensory deficits noted Psych: COMMON NORMALS: mental status grossly normal, Normal thought process present, cooperative and speech normal APPEARANCE: Yes well kempt SPEECH: Yes normal speech THOUGHT PROCESS: Normal thought process present Skin: COMMON NORMALS: turgor normal and no jaundice GENERAL SKIN EXAM: turgor normal Data 02/25/23 10:33 02/25/23 10:33 A&P Assessment and plan (1) Atrial fibrillation with RVR: (2) CHF (congestive heart failure): (3) Hyperthyroidism: (4) Anemia: (5) Gastritis: (6) Hypothyroidism: (7) Shortness of breath: Plan A-fib with RVR -Increase metoprolol to 50 twice daily -Continue amiodarone -Placed on Cardizem drip -Continue home Eliquis 2.5 mg twice daily placed on an lower dose due to concerns for anemia, gastritis -TSH, mag -Cardiac echo -Full code -Eliquis for DVT prophylaxis Diastolic CHF exacerbation, acute, with complaints of shortness of breath -Likely A-fib exacerbating factor -Lovenox 20 mg once daily, will daily dose -Monitor urine output monitor creatinine monitor potassium Attestations Medical Necessity Statement*: Patient requires hospitalization, inpatient, greater than 2 midnights due to A- fib with RVR Diagnoses Atrial fibrillation with RVR I48.91 CHF (congestive heart failure) I50.9 Hyperthyroidism E05.90 Anemia D64.9 Gastritis K29.70 Hypothyroidism E03.9 Shortness of breath R06.02
[2023-02-25] MEDS: dilTIAZem 100 MG in sodium chloride 0.9% (add-van) 100 ML IV (14:38)
--- NOTE | 2023-02-25 15:52 | USCV_ITS ---
Glory Thomas Age: 67 Gender: F : 1955 Exam Date: 02/25/2023 18:23 Ordering Phys: Yuri Lanier MD Technologist: Feliz Combs [place] [facility] [place]: afib, tricuspid valve regurg BP: 150 / 110 HR: 94 Rhythm: Atrial fibrillation Technical Quality: Adequate MEASUREMENTS (Male / Female) Normal Values 2D ECHO LV Ejection Fraction MOD 2C 68.8 % LV Ejection Fraction 2C AL 71.5 % LA Diameter 3.1 cm LA Width 3.1 cm LA Height 5.0 cm RA Width 4.0 cm RA Height 5.1 cm Aorta at Sinotubular Diameter 2.3 cm IVC Diameter 1.6 cm M-MODE Aortic Annulus Diameter 2.3 cm LA Ao Ratio MM 1.3 MV E Point Septal Separation 0.4 cm DOPPLER AV Peak Velocity 114.8 cm/s LVOT Peak Velocity 93.0 cm/s MV Peak Velocity 91.0 cm/s MV Area PHT 4.9 cm squared Mitral E to A Ratio 2.1 MV E' Velocity 47.0 cm/s Mitral E to MV E' Ratio 5.9 Mitral E to LV E' Lateral Ratio 4.9 Mitral E to LV E' Septal Ratio 7.4 TR Peak Velocity 260.2 cm/s TR Peak Gradient 27.1 mmHg TR Mean Velocity 192.5 cm/s TR Mean Gradient 16.5 mmHg TR Velocity Time Integral 61.2 cm Right Atrial Pressure 3.0 mmHg Pulmonary Artery Systolic Pressu 30.1 mmHg RV Acceleration Time 0.1 s RV Ejection Time 0.3 s RV AcT/ET 0.3 FINDINGS Left Ventricle Normal left ventricular size, systolic function and wall thickness, with no regional wall motion abnormalities. Left ventricular ejection fraction is estimated at 70 %. Rhythm precludes evaluation of diastolic function. Right Ventricle Normal right ventricular size and systolic function. Right ventricular systolic pressure 30.1 mmHg. Right Atrium Mildly increased right atrial size. Left Atrium Mildly increased left atrial size. Mitral Valve Structurally normal mitral valve. No mitral valve stenosis. No mitral valve regurgitation. Aortic Valve Aortic valve not well visualized. No aortic valve stenosis. No aortic valve regurgitation. Tricuspid Valve Structurally normal tricuspid valve. No tricuspid valve stenosis. Moderate tricuspid valve regurgitation. Pulmonic Valve Structurally normal pulmonic valve. No pulmonary valve stenosis. Trace pulmonary valve regurgitation. Pericardium No pericardial effusion. Aorta Normal size aortic root and proximal ascending aorta. IVC Normal IVC dimension with >50% respiratory change of the inferior vena cava. CONCLUSIONS 1. Normal left ventricular size, systolic function and wall thickness, with no regional wall motion abnormalities. Left ventricular ejection fraction is estimated at 70 % 2. Moderate tricuspid valve regurgitation. 3. Mild biatrial enlargement. 4. When compared to study dated 09/29/2021, tricuspid valve regurgitation may have improved. Deisi Barroso MD (Electronically Signed) Final Date: 25 February 2023 21:07 S
[2023-02-25] MEDS: FUROsemide 10 mg/mL SDV 2mL 20 MG IVP (16:12)
[2023-02-25 16:28] LABS: Cholesterol 189 mg/dL (0-200); HDL Cholesterol 86 mg/dL (60-100); LDL Cholesterol Calculated 83 mg/dL (50-129); LDL HDL Ratio 0.97 RATIO (0.00-3.22); Thyroid Stimulating Hormone 1.57 uIU/mL (0.27-4.20); Triglycerides 101 mg/dL (0-150)
--- NOTE | 2023-02-25 17:19 | ECG_ITS ---
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 Measurements Intervals [place] Rate: 103 P: 0 NE: 0 QRS: 41 QRSD: 82 T: 41 QT: 350 QTc: 459 Interpretive Statements ATRIAL FIBRILLATION WITH RAPID VENTRICULAR RESPONSE ABNORMAL RHYTHM ECG Compared to ECG 02/25/2023 12:33:15 No significant changes Electronically Signed On 02-26-2023 6:59:58 CDT by Deisi Barroso M.D. [id number]
[2023-02-25] MEDS: pantoprazole DR 40 mg Tablet PO (17:25)
[2023-02-25] MEDS: metoprolol tartrate 25 mg Tablet 50 MG PO (17:25)
[2023-02-25] MEDS: apixaban 5 mg Tablet 2.5 MG PO (17:25)
[2023-02-25 17:29] LABS: Troponin 5 6HR 22.14 ng/L (0-10)
[2023-02-25 17:30] LABS: Troponin 5 6HR Delta 11.14 ng/L (0-12)
[2023-02-25] MEDS: dilTIAZem 100 MG in sodium chloride 0.9% (add-van) 100 ML 12.5 MG IV (20:28)
[2023-02-25] MEDS: acetaminophen 325 mg Tablet 650 MG PO (21:27)
[2023-02-26] VITALS (7 sets, daily range): BP systolic 114–167; BP diastolic 71–80; PULSE 45–76; RESP 13–15; TEMP 36.7–37.1; O2SAT 96–98
[2023-02-26 03:38] LABS: Basophils % 0.8 %; Eosinophils # 0.2 10^3/uL (0.0-0.8); Hematocrit 37.1 % (37.0-47.0); Hemoglobin 11.7 g/dL (11.5-15.3); Lymphocytes # 1.8 10^3/uL (0.8-4.8); Lymphocytes % 36.7 %; Mean Corpuscular HGB Conc 31.5 g/dL (30.0-36.0); Mean Corpuscular Hemoglobin 28.4 pg (28.0-34.0); Mean Platelet Volume 10.1 fL (7.4-10.4); Monocytes # 0.5 10^3/uL (0.2-0.9); Monocytes % 10.8 %; Neutrophils # 2.41 10^3/uL (1.8-7.7); Neutrophils % 48.5 %; Nucleated Red Blood Cells % 0 %; Platelet Count 226 10^3/cmm (130-400); Red Blood Count 4.12 10^6/uL (4.1-5.3); Red Cell Distribution Width 16.4 % (12.1-15.1)
[2023-02-26 04:06] LABS: Anion Gap 14.7 (5-19); Blood Urea Nitrogen 21 mg/dL (8-23); Carbon Dioxide 26 mmol/L (22-29); Chloride 108 mmol/L (98-107); Glomerular Filtration Rate 83.7 mL/min (90-130); Glucose 95 mg/dL (65-115); Magnesium 2.1 mg/dL (1.7-2.3); Osmolality Calculated 301 mOsm/kg (285-295); Potassium 4.7 mmol/L (3.5-5.1); Sodium 144 mmol/L (136-145)
[2023-02-26] MEDS: ferrous sulfate EC 325 mg Tablet PO (09:16)
[2023-02-26] MEDS: pantoprazole DR 40 mg Tablet PO (09:16)
[2023-02-26] MEDS: potassium chloride ER 10 mEq Tablet PO (09:16)
[2023-02-26] MEDS: amiodarone 200 mg Tablet 100 MG PO (09:16)
[2023-02-26] MEDS: apixaban 5 mg Tablet 2.5 MG PO (09:16)
[2023-02-26] MEDS: losartan 50 mg Tablet 100 MG PO (09:16)
[2023-02-26] MEDS: metoprolol tartrate 25 mg Tablet 37.5 MG PO (09:22)
--- NOTE | 2023-02-26 10:54 | P.DS_ITS ---
Discharge Providers Date of Admission: 02/25/23 15:52 Date of Discharge: February 26, 2023 Attending Provider at Admission: Yuri Lanier MD Attending Provider at Discharge: Yuri Lanier MD Primary Care Provider: Adrien Platt MD Diagnoses at Discharge Discharge Diagnosis (1) Atrial fibrillation with RVR: Status: Acute (2) CHF (congestive heart failure): Status: Acute (3) Hyperthyroidism: Status: Ruled-out (4) Anemia: Status: Acute (5) Gastritis: Status: Acute (6) Hypothyroidism: Status: Acute (7) Shortness of breath: Status: Acute Reason for Visit Reason for Visit: high hr Hospital Course Hospital Course Glory Thomas is a 67 year old female with a past medical history of atrial fibrillation, hypothyroidism, diastolic CHF, hypertension, on Eliquis, history of H. pylori gastritis, who presents [facility] due to chest palpitations.? 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 and they were really pushing her to get all the trucks unloaded last night, she tells me that this morning at roughly 2 or so she started feeling chest palpitations, she checked her heart rates and they were in the 150s and her systolic blood pressures were in the 200s, she denies any chest pain, but does report shortness of breath, denies any lightheadedness, no dizziness, no diaphoresis, denies caffeine consumption, denies any drinking any energy drinks, currently she is in A-fib, heart rates in the 110s, she received 2 doses of metoprolol, currently being placed on a Cardizem drip, she is alert awake following all commands, she tells me that recently her Eliquis dose was decreased to 2.5 mg twice daily as there was concern for gastric irritation on her recent scopes and she was treated for H. pylori gastritis, Patient was admitted to [facility] for A-fib with RVR, she was given too much for pushes in the emergency room, her metoprolol dose was increased to 50 twice daily, no Cardizem drip was required, she was monitored overnight, her heart rates improved, she remained bradycardic throughout the night. Her metoprolol dose was decreased to 37.5 mg twice daily, continue home medications, follow-up with cardiology as outpatient. For her bradycardia she tells that she normally has bradycardia she denies feeling lightheaded or dizzy she was watched here as inpatient, she ambulated without feeling lightheaded or dizzy, discharged home. If she were to have any symptoms of feeling lightheaded or dizzy go to the emergency room. For diastolic CHF exacerbation required Lasix therapy her shortness of breath improved. Patient is echocardiogram showed CONCLUSIONS ?1. Normal left ventricular size, systolic function and wall ?thickness, with no regional wall motion abnormalities. Left ?ventricular ejection fraction is estimated at 70 % ?2. Moderate tricuspid valve regurgitation. ?3. Mild biatrial enlargement. ?4. When compared to study dated 09/29/2021, tricuspid valve ?regurgitation may have improved. -Potentially patient's tricuspid valve regurg is playing a role for her atrial fibrillation in addition to a mild biatrial enlargement, follow-up with cardiology as outpatient, Physical Exam Const: COMMON NORMALS: no acute distress and patient oriented x3 HENMT: COMMON NORMALS: normocephalic HEAD & SCALP: normocephalic Resp: COMMON NORMALS: normal respiratory effort, No retractions, No use of accessory muscles and clear to auscultation bilaterally AUSCULTATION: clear to auscultation bilaterally Cardio: COMMON NORMALS: S1 normal heart sound present and S2 normal heart sound present RATE: bradycardic RHYTHM: abnormal rhythm irregularly irregular HEART SOUNDS: S1 normal heart sound present and S2 normal heart sound present GI: COMMON NORMALS: Normal to inspection, nondistended, normoactive bowel sounds present and non-tender Extremity: COMMON NORMALS: no pedal edema Neuro: COMMON NORMALS: patient oriented x3 Psych: COMMON NORMALS: mental status grossly normal Discharge Data Studies Completed and Pending Completed Studies During Hospitalization Category Date Time Status XR chest 1V portable [id number] Stat Exams 02/25/23 10:06 Completed CV. echo complete* [id number] Routine Ultrasound 02/25/23 15:52 Completed Pending at discharge Category Date Time Status Basic Metabolic Panel AM LABS Lab 02/27/23 04:00 Ordered Basic Metabolic Panel AM LABS Lab 02/28/23 04:00 Ordered Complete Blood Count w/Auto AM LABS Lab 02/27/23 04:00 Ordered Complete Blood Count w/Auto AM LABS Lab 02/28/23 04:00 Ordered Magnesium AM LABS Lab 02/27/23 04:00 Ordered Magnesium AM LABS Lab 02/28/23 04:00 Ordered Radiology Impressions Chest X-Ray 02/25/23 10:06 IMPRESSION: 1. Pulmonary hyperinflation. No acute process noted. Laboratory Results WBC 5.0 10^3/uL (4.0-10.0) 02/26/23 02:36 RBC 4.12 10^6/uL (4.1-5.3) 02/26/23 02:36 Hgb 11.7 g/dL (11.5-15.3) 02/26/23 02:36 Hct 37.1 % (37.0-47.0) 02/26/23 02:36 MCV 90.0 fl (81-99) 02/26/23 02:36 MCH 28.4 pg (28.0-34.0) 02/26/23 02:36 MCHC 31.5 g/dL (30.0-36.0) 02/26/23 02:36 RDW 16.4 % (12.1-15.1) H 02/26/23 02:36 Plt Count 226 10^3/cmm (130-400) 02/26/23 02:36 MPV 10.1 fL (7.4-10.4) 02/26/23 02:36 Neut % (Auto) 48.5 % 02/26/23 02:36 Lymph % (Auto) 36.7 % 02/26/23 02:36 [place] % (Auto) 10.8 % 02/26/23 02:36 Eos % (Auto) 3.0 % 02/26/23 02:36 Baso % (Auto) 0.8 % 02/26/23 02:36 Neut # (Auto) 2.41 10^3/uL (1.8-7.7) 02/26/23 02:36 Lymph # (Auto) 1.8 10^3/uL (0.8-4.8) 02/26/23 02:36 [place] # (Auto) 0.5 10^3/uL (0.2-0.9) 02/26/23 02:36 Eos # (Auto) 0.2 10^3/uL (0.0-0.8) 02/26/23 02:36 Baso # (Auto) 0.0 10^3/uL (0.0-0.1) 02/26/23 02:36 Nucleated RBC % (auto) 0 % 02/26/23 02:36 Nucleated RBCs # 0.0 /100WBC 02/26/23 02:36 Sodium 144 mmol/L (136-145) 02/26/23 02:36 Potassium 4.7 mmol/L (3.5-5.1) 02/26/23 02:36 Chloride 108 mmol/L (98-107) H 02/26/23 02:36 Carbon Dioxide 26 mmol/L (22-29) 02/26/23 02:36 Anion Gap 14.7 (5-19) 02/26/23 02:36 BUN 21 mg/dL (8-23) 02/26/23 02:36 Creatinine 0.7 mg/dL (0.5-0.9) 02/26/23 02:36 GFR Calculation 83.7 mL/min (90-130) L 02/26/23 02:36 Glucose 95 mg/dL (65-115) 02/26/23 02:36 Calculated Osmolality 301 mOsm/kg (285-295) H 02/26/23 02:36 Calcium 9.0 mg/dL (8.5-10.5) 02/26/23 02:36 Magnesium 2.1 mg/dL (1.7-2.3) 02/26/23 02:36 Total Bilirubin 0.2 mg/dL (0.15-1.2) 02/25/23 10:33 AST 21 U/L (0-32) 02/25/23 10:33 ALT 22 U/L (0-33) 02/25/23 10:33 Alkaline Phosphatase 113 U/L (35-105) H 02/25/23 10:33 Troponin T Baseline 11 ng/L (0-10) H 02/25/23 10:33 Troponin T 120 Minute 15.18 ng/L (0-10) H 02/25/23 12:10 Delta Troponin T 4.18 ABS# (0-10) 02/25/23 12:10 Troponin T Hi Sens 6Hr 22.14 ng/L (0-10) H 02/25/23 16:40 Troponin T Hi Sens 6Hr Delta 11.14 ng/L (0-12) 02/25/23 16:40 NT-Pro-B Natriuret Pep 682 pg/mL (0-125) H 02/25/23 10:33 Total Protein 7.1 g/dL (6.6-8.7) 02/25/23 10:33 Albumin 4.6 g/dL (3.5-5.2) 02/25/23 10:33 Globulin 2.5 g/dL (1.3-4.6) 02/25/23 10:33 Triglycerides 101 mg/dL (0-150) 02/25/23 10:33 Cholesterol 189 mg/dL (0-200) 02/25/23 10:33 LDL Cholesterol, Calc 83 mg/dL (50-129) 02/25/23 10:33 HDL Cholesterol 86 mg/dL (60-100) 02/25/23 10:33 LDL/HDL Ratio 0.97 RATIO (0.00-3.22) 02/25/23 10:33 Cholesterol/HDL Ratio 2.20 mg/dL (0.0-4.40) 02/25/23 10:33 Lipase 35 U/L (13-60) 02/25/23 10:33 TSH 1.57 uIU/mL (0.27-4.20) 02/25/23 10:33 Vitals Last Vital Signs Temp 974 F H 02/26/23 07:45 Pulse 46 L 02/26/23 07:45 Resp 13 02/26/23 07:45 BP 167/74 02/26/23 09:16 Pulse Ox 98 02/26/23 07:45 O2 Del Method Room Air 02/26/23 07:45 Discharge Plan Discharge Patient Disposition: Home Condition: Stable Prescriptions: Continued Eliquis 2.5 mg tablet 2.5 mg PO BID Qty: 180 3RF cetirizine [All Day Allergy (cetirizine)] 10 mg tablet 10 mg PO DAILY PRN (Reason: Allergic Symptoms) nitroglycerin 0.4 mg tablet, sublingual 0.4 mg sublingual Q5M PRN (Reason: chest pain) 30 Days Qty: 30 3RF Rx Instructions: until response; do not exceed 3 doses per episode omeprazole 40 mg capsule,delayed release(DR/EC) 40 mg PO DAILY Qty: 30 6RF losartan 100 mg tablet 100 mg PO DAILY Qty: 90 3RF thyroid (pork) [[place] Thyroid] 90 mg tablet 90 mg PO DAILY Qty: 30 3RF amiodarone 200 mg tablet 100 mg PO DAILY Qty: 45 3RF Vitamin C 500 mg Tablet 500 mg PO DAILY ferrous sulfate 325 mg (65 mg iron) Tablet 325 mg PO DAILY potassium chloride 10 mEq capsule, extended release 10 meq PO DAILY furosemide 20 mg tablet 20 mg PO DAILY Changed metoprolol tartrate 25 mg tablet 37.5 mg PO BID Qty: 180 3RF Discharge Orders: Discharge Order (Routine); Ordered 02/26/23 Ordered By: Yuri Lanier Referrals: Dane Shields MD [Physician] - 1 week Adrien Platt MD [Primary Care Provider] - Discharge Diet: Cardiac Discharge Activity: Resume usual activity Patient Instructions: Metoprolol (By mouth) (Lopressor, Toprol XL), Heart Failure (DC), Shortness of Breath (DC), CHF Stoplight, Opioid Safety Activity Restrictions/Additional Instructions: - If you have worsening chest palpitations, shortness of breath please come back to emergency room -If you feel lightheaded or dizzy please come back to the emergency room Discharge Attestations Time Spent in Discharge Care*: greater than 30 min Status at Discharge: Cognitive status at discharge: cognitively intact , Behavioral status at discharge: cooperative , Quality Metrics Clinical Quality Measures [ No reported AMI, CVA or VTE this stay] Coding Level of Care Code Acute Code for Chg Fwd Diagnoses Atrial fibrillation with RVR I48.91 CHF (congestive heart failure) I50.9 Hyperthyroidism E05.90 Anemia D64.9 Gastritis K29.70 Hypothyroidism E03.9 Shortness of breath R06.02
--- NOTE | 2023-02-26 12:26 | PC.NURSE ---
Pt is ambulating down hallways Pt denies any chest pain or discomfort. no report of dizziness or lightheadedness. HR at baseline is around 45-50 per patient.
== END 2023-02-26 12:50 | disposition home or self-care (01) ==
LOC: ER 13:58 → CSU 19:11
PROVIDERS: Admitting Provider Family Medicine; Emergency Provider Emergency Medicine; PCP Family Medicine; Visit Provider Family Medicine
DX: I48.91 Unspecified atrial fibrillation (principal); I50.33 Acute on chronic diastolic (congestive) heart failure; I11.0 Hypertensive heart disease with heart failure; Z79.01 Long term (current) use of anticoagulants; R00.1 Bradycardia, unspecified; I07.1 Rheumatic tricuspid insufficiency; E03.9 Hypothyroidism, unspecified
CPT/HCPCS: 36415; 71045; 80048; 80053; 80061; 83690; 83735; 83880; 84443; 84484; 85025; 93005; 93306; 94664; 96365; 96366; 96375; 96376; 99291; G0378; J1940; J3490; J7030

== ENCOUNTER → 2023-03-08 10:43 | Outpatient (BNVA) | payer OTHER, SELFPAY | PROVIDERS: PCP Family Medicine; Visit Provider Nurse Practitioner Family | DX: I48.91 Unspecified atrial fibrillation (principal) | CPT/HCPCS: 93005 ==

== ENCOUNTER → 2023-04-04 10:28 | Outpatient (BNVA) | payer OTHER, SELFPAY | PROVIDERS: PCP Family Medicine; Visit Provider Family Medicine | DX: Z01.818 Encounter for other preprocedural examination (principal) | CPT/HCPCS: 80053; 85025 ==

== ENCOUNTER 2023-05-11 02:39 | Inpatient (IN) | payer OTHER, MEDICARE, SELFPAY ==
[2023-05-11] VITALS (20 sets, daily range): BP systolic 108–167; BP diastolic 64–120; PULSE 92–150; RESP 16–26; TEMP 36.6–36.8; O2SAT 90–98; BMI 21.9
--- NOTE | 2023-05-11 02:41 | ECG_ITS ---
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 Measurements Intervals [place] Rate: 128 P: 0 DC: 0 QRS: 61 QRSD: 81 T: 39 QT: 306 QTc: 448 Interpretive Statements ATRIAL FIBRILLATION WITH RAPID VENTRICULAR RESPONSE POSSIBLE ANTERIOR MYOCARDIAL INFARCTION , PROBABLY OLD [30 ms Q WAVE IN V3/V4, OR R < 0.2 mV IN V4] ABNORMAL RHYTHM ECG Compared to ECG 03/08/2023 10:48:09 Myocardial infarct finding now present Sinus bradycardia no longer present Electronically Signed On 05-11-2023 8:26:59 CDT by Sandeep Andres M.D. [email or web address]
--- NOTE | 2023-05-11 02:41 | XRR_ITS ---
PROCEDURE INFORMATION: Exam: XR Chest Exam date and time: 05/11/2023 2:50 AM Age: 67 years old Clinical indication: Chest wall pain; Patient HX: PT states her heart was beating really hard, cp, dizziness, PT says she has afib TECHNIQUE: Imaging protocol: Radiologic exam of the chest. Views: 1 view. COMPARISON: CR XR chest 1V portable [id number] 02/25/2023 10:35 AM FINDINGS: Lungs: Unremarkable. No consolidation. Pleural spaces: Unremarkable. No pleural effusion. No pneumothorax. Heart/Mediastinum: Unremarkable. No cardiomegaly. Atherosclerotic calcifications are seen in the thoracic aorta. There is no mediastinal widening. Bones/joints: Unremarkable. XR/XR chest 1V portable [id number] IMPRESSION: No acute findings.
--- NOTE | 2023-05-11 03:00 | ED_ITS ---
HPI - General Adult General: Chief complaint: Chest Pain Stated complaint: high heart rate Time Seen by Provider: 05/11/23 02:42 Source: patient Mode of arrival: ambulatory Limitations: no limitations History of Present Illness: 67-year-old female has a history of A-fib she states that she had felt her heart was racing tonight having some palpitations. She states that she is having some mild dyspnea and chest pain states that this typical when she has a fast heart rate denies any severe symptoms she is on amiodarone at home along with the blood thinner. Denies any worsening proving factors Associated symptoms: Reports palpitations; Deny chest pain, dyspnea, headache(s), nausea, rash or vomiting Review of Systems Const: Denies: fever(s) or chills ENMT: Denies: throat pain or dental pain Card: Reports: palpitations; Denies: chest pain Resp: Denies: dyspnea GI: Denies: abdominal pain, nausea, vomiting or diarrhea : Denies: dysuria Musc: Denies: neck pain or back pain Skin/Breast: Denies: rash Neuro: Denies: headache(s) PFSH ED PFSH: Medical History Atrial fibrillation Benign essential hypertension with target blood pressure below 140/90 Human adenovirus infection Hypertension Hyperthyroidism Surgical History History of carpal tunnel repair Family History Father CAD (coronary artery disease), Onset Age: 49 [place] Mother Cancer Denies family history of Diabetes Clotting disorder Dementia Chronic kidney disease (CKD) Suicide Anesthesia complication Bleeding disorder Lung disease Stroke Social History Smoking and tobacco status: never smoked Desire information about alcohol rehabilitation?: No Substance/Drug Use: never Physical Exam Const: COMMON NORMALS: patient oriented x3 HENMT: COMMON NORMALS: normocephalic and atraumatic HEAD & SCALP: normocephalic and atraumatic Eye: COMMON NORMALS: conjunctivae normal CONJUNCTIVA: Yes conjunctivae normal Neck/C-Spine: COMMON NORMALS: full ROM and supple Chest: COMMONS NORMALS: normal inspection of the chest and normal palpation of entire chest wall Resp: COMMON NORMALS: normal respiratory effort, No retractions, No use of accessory muscles and clear to auscultation bilaterally AUSCULTATION: clear to auscultation bilaterally Cardio: COMMON NORMALS: No murmurs present (Cardio) RATE: tachycardic RHYTHM: abnormal rhythm irregularly irregular GI: COMMON NORMALS: Normal to inspection, nondistended, normoactive bowel sounds present, Soft to palpation, non-tender and no masses PALPATION: Yes Soft to palpation Extremity: COMMON NORMALS: normal to inspection and full ROM Neuro: COMMON NORMALS: patient oriented x3, moves all extremities and no focal motor deficits Psych: COMMON NORMALS: mental status grossly normal, Normal thought process present and cooperative THOUGHT PROCESS: Normal thought process present Skin: COMMON NORMALS: no rashes or lesions noted and no wounds GENERAL SKIN EXAM: no rashes or lesions noted Course Vital Signs: Vital signs: Vital Signs Temperature 97.9 F 05/11/23 03:00 Pulse Rate 111 H 05/11/23 05:05 Respiratory Rate 18 05/11/23 05:05 Blood Pressure 145/98 05/11/23 05:05 Pulse Oximetry 93 05/11/23 05:05 Oxygen Delivery Me thod Room Air 05/11/23 03:00 MDM - General Adult Medical Decision Making Patient presents here with A-fib with RVR she is started on a Cardizem drip her heart rate is improving CT shows bilateral pleural effusions we will start her on IV antibiotics patient is on 2 L oxygen here I spoke to hospitalist will admit. Medical Records I reviewed the patient's medical records. Lab Data I reviewed the patient's lab results. 05/11/23 02:55 05/11/23 02:55 Radiology Impressions Chest X-Ray 05/11/23 02:41 IMPRESSION: No acute findings. Chest CTA 05/11/23 04:16 IMPRESSION: 1. Moderate right pleural effusion, mild left pleural effusion, and small dependent bibasilar atelectasis. 2. No pulmonary embolism. 3. An 8 mm peripheral soft tissue nodule in the lateral segment of the right middle lobe is nonspecific and may represent a small atelectasis. For patients at low risk (minimal or absent history of smoking and of other known risk factors), recommend CT Chest at 6-12 months, then consider CT Chest at 18-24 months. For patients at high risk (history of smoking or of other known risk factors), recommend CT Chest at 6-12 months, then CT Chest at 18-24 months. (Reference: Penny) 4. Abnormal gallbladder. Right upper quadrant abdominal ultrasound is recommended to further evaluate the gallbladder. REFERENCES: Penny Butler et al. Guidelines for Management of Incidental Pulmonary Nodules Detected on CT Images: From the Fleischner Society 2017. Radiology. 2017;284(1):228-243. Laboratory Results WBC 8.56 10^3/uL (3.29-11.43) 05/11/23 02:55 RBC 3.30 10^6/uL (3.85-5.65) L 05/11/23 02:55 Hgb 10.20 g/dL (11.27-16.99) L 05/11/23 02:55 Hct 32.2 % (36-47) L 05/11/23 02:55 MCV 97.6 fl (85-98) 05/11/23 02:55 MCH 30.9 pg (27-33) 05/11/23 02:55 MCHC 31.7 g/dL (30-55) 05/11/23 02:55 RDW 15.4 % (12.1-15.1) H 05/11/23 02:55 Plt Count 344 10^3/cmm (157-399) 05/11/23 02:55 MPV 9.1 fL (7.4-10.4) 05/11/23 02:55 Neut % (Auto) 71.8 % 05/11/23 02:55 Lymph % (Auto) 17.9 % 05/11/23 02:55 [place] % (Auto) 8.5 % 05/11/23 02:55 Eos % (Auto) 1.1 % 05/11/23 02:55 Baso % (Auto) 0.5 % 05/11/23 02:55 Neut # (Auto) 6.15 10^3/uL (1.8-7.7) 05/11/23 02:55 Lymph # (Auto) 1.5 10^3/uL (0.8-4.8) 05/11/23 02:55 [place] # (Auto) 0.7 10^3/uL (0.2-0.9) 05/11/23 02:55 Eos # (Auto) 0.1 10^3/uL (0.0-0.8) 05/11/23 02:55 Baso # (Auto) 0.0 10^3/uL (0.0-0.1) 05/11/23 02:55 Nucleated RBC % (auto) 0 % 05/11/23 02:55 Nucleated RBCs # 0.0 /100WBC 05/11/23 02:55 PT 14.10 SECONDS (12.1-14.9) 05/11/23 02:55 INR 1.06 (0.8-1.2) 05/11/23 02:55 D-Dimer 4.49 ug/mLFEU (0-0.59) H 05/11/23 02:55 Sodium 136 mmol/L (136-145) 05/11/23 02:55 Potassium 3.8 mmol/L (3.5-5.1) 05/11/23 02:55 Chloride 99 mmol/L (98-107) 05/11/23 02:55 Carbon Dioxide 26 mmol/L (22-29) 05/11/23 02:55 Anion Gap 14.8 (5-19) 05/11/23 02:55 BUN 21 mg/dL (8-23) 05/11/23 02:55 Creatinine 0.7 mg/dL (0.5-0.9) 05/11/23 02:55 GFR Calculation 83.7 mL/min (90-130) L 05/11/23 02:55 Glucose 116 mg/dL (65-115) H 05/11/23 02:55 Calculated Osmolality 286 mOsm/kg (285-295) 05/11/23 02:55 Calcium 9.4 mg/dL (8.5-10.5) 05/11/23 02:55 Total Bilirubin 0.8 mg/dL (0.15-1.2) 05/11/23 02:55 AST 80 U/L (0-32) H 05/11/23 02:55 ALT 224 U/L (0-33) H 05/11/23 02:55 Alkaline Phosphatase 314 U/L (35-105) H 05/11/23 02:55 Troponin T Baseline 13 ng/L (0-10) H 05/11/23 02:55 Total Protein 6.4 g/dL (6.6-8.7) L 05/11/23 02:55 Albumin 4.2 g/dL (3.5-5.2) 05/11/23 02:55 Globulin 2.2 g/dL (1.3-4.6) 05/11/23 02:55 TSH 4.56 uIU/mL (0.27-4.20) H 05/11/23 02:55 All radiology interpretation(s) finalized by discharge EKG Data EKG 1: I personally reviewed and interpreted this EKG as follows: EKG interpretation date: 05/11/23 EKG interpretation time: 02:48 Interpretation: afib with rvr hr [address] or t wave abnormalities Computer generated interpretation: Chest X-Ray 05/11/23 02:41 IMPRESSION: No acute findings. Chest CTA 05/11/23 04:16 IMPRESSION: 1. Moderate right pleural effusion, mild left pleural effusion, and small dependent bibasilar atelectasis. 2. No pulmonary embolism. 3. An 8 mm peripheral soft tissue nodule in the lateral segment of the right middle lobe is nonspecific and may represent a small atelectasis. For patients at low risk (minimal or absent history of smoking and of other known risk factors), recommend CT Chest at 6-12 months, then consider CT Chest at 18-24 months. For patients at high risk (history of smoking or of other known risk factors), recommend CT Chest at 6-12 months, then CT Chest at 18-24 months. (Reference: Penny) 4. Abnormal gallbladder. Right upper quadrant abdominal ultrasound is recommended to further evaluate the gallbladder. REFERENCES: Penny H, et al. Guidelines for Management of Incidental Pulmonary Nodules Detected on CT Images: From the Fleischner Society 2017. Radiology. 2017;284(1):228-243. Critical Care Time Critical Care Time: Critical Care Time: Yes Total Critical Care Time: 40 Attestation: The high probability of a clinically significant, sudden or life threatening deterioration of the patient's cv system(s) required my full and direct attention, intervention and personal management. The critical care time is as shown. 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
[2023-05-11] MEDS: dilTIAZem 5 mg/mL SDV 5 mL 15 MG IVP (03:01)
[2023-05-11] MEDS: sodium chloride 0.9% 1,000 ML 999 ML IV ×2 (03:01→04:58)
[2023-05-11 03:12] LABS: Basophils % 0.5 %; Eosinophils # 0.1 10^3/uL (0.0-0.8); Eosinophils % 1.1 %; Hematocrit 32.2 % (36-47); Lymphocytes # 1.5 10^3/uL (0.8-4.8); Lymphocytes % 17.9 %; Mean Corpuscular HGB Conc 31.7 g/dL (30-55); Mean Corpuscular Hemoglobin 30.9 pg (27-33); Mean Corpuscular Volume 97.6 fl (85-98); Mean Platelet Volume 9.1 fL (7.4-10.4); Monocytes # 0.7 10^3/uL (0.2-0.9); Monocytes % 8.5 %; Neutrophils # 6.15 10^3/uL (1.8-7.7); Neutrophils % 71.8 %; Nucleated Red Blood Cells % 0 %; Platelet Count 344 10^3/cmm (157-399); Red Cell Distribution Width 15.4 % (12.1-15.1); White Blood Count 8.56 10^3/uL (3.29-11.43)
[2023-05-11 03:17] LABS: INR 1.06 (0.8-1.2)
[2023-05-11 03:29] LABS: Troponin(5th) Baseline 13 ng/L (0-10)
[2023-05-11 03:30] LABS: Alanine Aminotransferase 224 U/L (0-33); Albumin Level 4.2 g/dL (3.5-5.2); Alkaline Phosphatase 314 U/L (35-105); Anion Gap 14.8 (5-19); Aspartate Amino Transferase 80 U/L (0-32); Blood Urea Nitrogen 21 mg/dL (8-23); Calcium 9.4 mg/dL (8.5-10.5); Carbon Dioxide 26 mmol/L (22-29); Chloride 99 mmol/L (98-107); Globulin 2.2 g/dL (1.3-4.6); Glomerular Filtration Rate 83.7 mL/min (90-130); Glucose 116 mg/dL (65-115); Osmolality Calculated 286 mOsm/kg (285-295); Potassium 3.8 mmol/L (3.5-5.1); Sodium 136 mmol/L (136-145); Total Bilirubin 0.8 mg/dL (0.15-1.2); Total Protein 6.4 g/dL (6.6-8.7)
[2023-05-11 03:37] LABS: Thyroid Stimulating Hormone 4.56 uIU/mL (0.27-4.20)
[2023-05-11] MEDS: dilTIAZem 100 MG in sodium chloride 0.9% (add-van) 100 ML 10 MG IV ×2 (03:43→11:03)
[2023-05-11 04:14] LABS: D Dimer 4.49 ug/mLFEU (0-0.59)
--- NOTE | 2023-05-11 04:16 | CTR_ITS ---
PROCEDURE INFORMATION: Exam: CTA Chest With Contrast Exam date and time: 05/11/2023 4:41 AM Age: 67 years old Clinical indication: Shortness of breath and tachypnea; Additional info: SOB TECHNIQUE: Imaging protocol: Computed tomographic angiography of the chest with contrast. Exam focused on the arteries. 3D rendering (Not supervised by radiologist): MIP and/or 3D reconstructed images were created by the technologist. Radiation optimization: All CT scans at this facility use at least one of these dose optimization techniques: automated exposure control; mA and/or kV adjustment per patient size (includes targeted exams where dose is matched to clinical indication); or iterative reconstruction. Contrast material: OMNI 350; Contrast volume: 100 ml; Contrast route: INTRAVENOUS (IV); REPORTING DATA: Count of CT and Cardiac NM exams in prior 12 months: This patient has received 0 known CTs and 0 known cardiac nuclear medicine studies in the 12 months prior to the current study. COMPARISON: CT angio chest PE protcl [id number] 09/28/2021 8:06 PM RADIATION DOSE METRICS: Total DLP (mGy-cm): 345.16 FINDINGS: Pulmonary arteries: Normal. No pulmonary emboli. Aorta: Unremarkable. No aortic aneurysm. No aortic dissection. Lungs: There is small dependent bibasilar atelectasis. There is no lobar consolidation or pulmonary edema. There is an 8 mm peripheral noncalcified soft tissue nodule in the right middle lobe. Pleural spaces: Moderate right pleural effusion and mild left pleural effusion are seen. There is no pneumothorax. Heart: Unremarkable. No cardiomegaly. No pericardial effusion. Lymph nodes: Unremarkable. No enlarged lymph nodes. Gallbladder and bile ducts: There is an abnormal density in the gallbladder. Cholecystitis or choledocholithiasis can not be excluded. Further evaluation with right upper quadrant abdominal ultrasound is recommended. Bones/joints: Unremarkable. No acute fracture. Soft tissues: Unremarkable. CT/CT angio chest PE protcl [id number] IMPRESSION: 1. Moderate right pleural effusion, mild left pleural effusion, and small dependent bibasilar atelectasis. 2. No pulmonary embolism. 3. An 8 mm peripheral soft tissue nodule in the lateral segment of the right middle lobe is nonspecific and may represent a small atelectasis. For patients at low risk (minimal or absent history of smoking and of other known risk factors), recommend CT Chest at 6-12 months, then consider CT Chest at 18-24 months. For patients at high risk (history of smoking or of other known risk factors), recommend CT Chest at 6-12 months, then CT Chest at 18-24 months. (Reference: Penny) 4. Abnormal gallbladder. Right upper quadrant abdominal ultrasound is recommended to further evaluate the gallbladder. REFERENCES: Penny Butler, et al. Guidelines for Management of Incidental Pulmonary Nodules Detected on CT Images: From the Fleischner Society 2017. Radiology. 2017;284(1):228-243.
[2023-05-11] MEDS: iohexol 350 mg/mL 500 mL Btl (per mL) IV (04:49)
[2023-05-11] MEDS: acetaminophen 500 mg Tablet 1000 MG PO (04:58)
--- NOTE | 2023-05-11 05:55 | US_ITS ---
WS: [id number] ULTRASOUND ABDOMEN LIMITED CLINICAL INFORMATION: ruq pain COMPARISON: 09/29/2021 FINDINGS: Liver Size: Enlarged and cirrhotic craniocaudal length: 16.8 cm. Echogenicity: Coarse surface nodularity: Present Mass (size and location): None. Bile ducts Intrahepatic ducts: Normal. Common bile duct diameter: 0.3 cm. Gallbladder Gallbladder wall thickening with surrounding fluid. Negative Millan's sign. No cholelithiasis. Pancreas Normal as visualized. Right kidney: Normal. Hydronephrosis: None. Size: 10.4 cm x 3.8 cm x 3.9 cm. Abdominal aorta and IVC Visualized portions are normal. Ascites: Present IMPRESSION: 1. Cirrhotic liver with mild hepatomegaly. 2. Thickened gallbladder wall with surrounding fluid. Negative Lucama sign. Findings likely due to liver disease. No cholelithiasis. 3. Normal common bile duct. 4. No hydronephrosis in the RIGHT kidney.
--- NOTE | 2023-05-11 06:00 | USCV_ITS ---
Glory Thomas Age: 67 Gender: F : 1955 Exam Date: 05/11/2023 07:16 Ordering Phys: Yuri Lanier MD Technologist: ELEONORA [place] [facility] [place]: [place] HISTORY: Stasis PROCEDURES: Venous duplex imaging was performed in bilateral lower extremities. The following venous structures were evaluated: common femoral vein, profunda vein, proximal portion of the greater saphenous vein, superficial femoral vein, and the popliteal vein. In addition, the posterior tibial and peroneal trunk were evaluated. Serial compression, augmentation maneuvers, and spectral Doppler flow evaluation were performed. FINDINGS: No evidence of DVT seen in any vessel visualized at this time. CONCLUSIONS No evidence of right lower extremity DVT. No evidence of left lower extremity DVT. 2.0 x 1.6 x 2.6cm Right popliteal cyst Amos Don MD (Electronically Signed) Final Date: 11 May 2023 10:21 S
--- NOTE | 2023-05-11 06:05 | PM.HP ---
Providers/Chief Complaint Admitting Physician: Yuri Lanier MD Primary Care Provider: Adrien Platt MD Chief Complaint: high heart rate History of Present Illness Glory Thomas is a 67 year old female with a past medical history of atrial fibrillation, on low-dose Eliquis due to history of gastric irritation, and H. pylori gastritis, hypothyroidism, CHF, hypertension, recent right knee replacement, who presents to [facility] due to nausea, vomiting, abdominal pain, chest pain, palpitations, shortness of breath. Patient tells me that she had her right knee replacement in April 28 in [place], since then she has been less ambulatory, she is bearing weight, she has home physical therapy, 2 days after her surgery she started feeling nauseous, having abdominal bloating, and abdominal pain, no fevers, no chills, she continues to feel nauseous and have abdominal pain, decreased appetite, will bring her to the emergency room this morning she started develop chest palpitations and shortness of breath, in the emergency room she was diagnosed with A-fib with RVR, she was started on a Cardizem drip, and moved to the cardiac stepdown unit, currently she is in CSU she is on Cardizem at 15 however heart rates go up into the 140s, I instructed nursing staff to give her 50 of p.o. metoprolol, she is short of breath, she has 1+ pitting edema, crackles in both lung [place], CT scan shows bilateral pleural effusions right greater than left, will give 40 of Lasix, discussed with her that we possibly might need to do a thoracocentesis based on clinical progress, she is on 2 L, she tells me that she continues to feel nauseous, have abdominal bloating, she does have right upper quadrant tenderness, CT angiogram of the chest did show abnormalities of the gallbladder, her blood work does show elevated alk phos, elevated liver function, we will keep her n.p.o., perform a gallbladder ultrasound, order inflammatory markers CRP, Pro-Myke, lipase. Review of Systems Const: Reports: fatigue and malaise; Denies: fever(s) Card: Reports: palpitations Resp: Reports: dyspnea GI: Reports: abdominal pain and nausea : Denies: flank pain Musc: Denies: back pain Medications/Allergies Home Medications Medication Instructions Recorded Confirmed Last Taken Type cetirizine 10 mg tablet (All Day 10 mg PO DAILY PRN Allergic 05/18/22 03/21/23 02/25/23 History Allergy (cetirizine)) Symptoms nitroglycerin 0.4 mg sublingual 0.4 mg sublingual Q5M PRN chest 05/18/22 03/21/23 Unknown Rx tablet pain 30 days #30 tabs losartan 100 mg tablet 100 mg PO DAILY #90 tabs 09/10/22 03/21/23 02/25/23 Rx amiodarone 200 mg tablet 100 mg PO DAILY #45 tabs 12/28/22 03/21/23 02/25/23 Rx apixaban 2.5 mg tablet (Eliquis) 2.5 mg PO BID #180 tabs 12/31/22 03/21/23 02/25/23 Rx ferrous sulfate 325 mg (65 mg 325 mg PO DAILY 02/25/23 03/21/23 2 Weeks Ago History iron) tablet ~02/11/23 furosemide 20 mg tablet 20 mg PO DAILY 02/25/23 03/21/23 02/25/23 History potassium chloride 10 mEq 10 meq PO DAILY 02/25/23 03/21/23 02/25/23 History capsule,extended release thyroid (pork) 90 mg tablet 90 mg PO DAILY #30 tabs 03/02/23 03/21/23 Unknown Rx (Pace Thyroid) amlodipine 2.5 mg tablet 2.5 mg PO DAILY PRN For BP above 03/08/23 03/21/23 Unknown Rx 150/100 #60 tabs metoprolol tartrate 25 mg tablet 25 mg PO BID #180 tabs 03/08/23 03/21/23 Unknown Rx omeprazole 40 mg capsule,delayed 160 mg PO BID 03/08/23 03/21/23 Unknown History release Allergies Allergy/AdvReac Type Severity Reaction Status Date / Time No Known Allergies Allergy Verified 05/11/23 03:03 PFSH Acute PFSH: Medical History Atrial fibrillation Benign essential hypertension with target blood pressure below 140/90 Human adenovirus infection Hypertension Hyperthyroidism Surgical History History of carpal tunnel repair Family History Father CAD (coronary artery disease), Onset Age: 49 [place] Mother Cancer Denies family history of Diabetes Clotting disorder Dementia Chronic kidney disease (CKD) Suicide Anesthesia complication Bleeding disorder Lung disease Stroke Social History Smoking and tobacco status: never smoked Desire information about alcohol rehabilitation?: No Substance/Drug Use: never Vitals/I&O/Wt Last Vital Signs Temp 97.9 F 05/11/23 05:44 Pulse 111 H 05/11/23 05:44 Resp 16 05/11/23 05:44 BP 132/105 05/11/23 05:44 Pulse Ox 91 05/11/23 05:44 O2 Del Method Room Air 05/11/23 03:00 05/10/23 05/10/23 05/11/23 14:59 22:59 06:59 Intake Total 4.667 / 4.667 Balance 4.667 / 4.667 Weight last 48 hrs Weight 63.503 kg Physical Exam Const: COMMON NORMALS: no acute distress and patient oriented x3 HENMT: COMMON NORMALS: normocephalic Eye: COMMON NORMALS: Equal, round and reactive pupils present Neck/C-Spine: COMMON NORMALS: no lymphadenopathy Resp: COMMON NORMALS: normal respiratory effort, No retractions and No use of accessory muscles AUSCULTATION: crackles Cardio: COMMON NORMALS: no JVD, S1 normal heart sound present and S2 normal heart sound present RATE: tachycardic RHYTHM: abnormal rhythm irregularly irregular HEART SOUNDS: S1 normal heart sound present and S2 normal heart sound present GI: OTHER: Abdomen soft, distended, right upper quadrant tenderness to palpation, no guarding, no rebound, no rigidity : COMMON NORMALS: Yes no CVA tenderness Extremity: NARRATIVE EXTREMITY EXAM: Right knee replacement, bilateral 1+ pitting edema Neuro: COMMON NORMALS: patient oriented x3, CN's II-XII intact bilaterally and moves all extremities Psych: COMMON NORMALS: mental status grossly normal Data 05/11/23 02:55 05/11/23 02:55 A&P Assessment and plan (1) Atrial fibrillation with RVR: (2) Pleural effusion: (3) Abnormal CT scan, gallbladder: (4) CHF exacerbation: Plan A-fib with RVR -Check alcohol levels, check magnesium levels -50 of p.o. metoprolol every 12 hours -Continue Cardizem, if her heart rates are not controlled the next hour or so, will switch to amiodarone drip -Continue Eliquis Bilateral pleural effusions right greater than left -Continue Lasix -Patient might require thoracocentesis Right upper quadrant pain, nausea, abnormal gallbladder on CT scan -Lipase, GGT, Pro-Myke, CRP -Right upper quadrant ultrasound Diastolic CHF exacerbation, Lasix 40 mg IV push Right knee replacement, relative immobility, ultrasound for DVT Attestations Medical Necessity Statement*: Patient requires hospitalization, inpatient, greater than 2 midnights, for CHF exacerbation, fluid overload, A-fib with RVR, right upper quadrant pain, abnormal gallbladder Diagnoses Atrial fibrillation with RVR I48.91 Pleural effusion J90 [address] scan, gallbladder R93.2 CHF exacerbation I50.9
[2023-05-11 06:21] LABS: Procalcitonin 0.05 ng/mL (0-0.5)
[2023-05-11] MEDS: FUROsemide 10 mg/mL SDV 4mL 40 MG IVP (06:22)
[2023-05-11] MEDS: metoprolol tartrate 50 mg Tablet PO ×2 (06:22→17:48)
[2023-05-11] MEDS: cefTRIAXone 1,000 MG in sodium chloride 0.9% (plus) 50 ML 100 MG IV (06:22)
[2023-05-11] MEDS: pantoprazole 40 mg SDV IVP (06:22)
[2023-05-11 06:23] LABS: C Reactive Protein 23.4 mg/L (0.0-4.9); Lipase 25 U/L (13-60)
[2023-05-11 06:30] LABS: NT Pro B Type Natriuretic Pept 4561 pg/mL (0-125)
[2023-05-11 06:34] LABS: Estmated Average Glucose 108; Hemoglobin A1C 5.4 % (4.0-6.0)
[2023-05-11 06:39] LABS: Cholesterol 110 mg/dL (0-200); Gamma Glutamyl Transferase 120 U/L (5-36); HDL Cholesterol 55 mg/dL (60-100); LDL Cholesterol Calculated 40 mg/dL (50-129); LDL HDL Ratio 0.73 RATIO (0.00-3.22); Triglycerides 74 mg/dL (0-150)
[2023-05-11 06:44] LABS: INR 1.09 (0.8-1.2)
[2023-05-11 06:47] LABS: Magnesium 2.1 mg/dL (1.7-2.3)
[2023-05-11 06:48] LABS: Alcohol Level < 10 mg/dL (0-10)
[2023-05-11 06:48] LABS: Lactic Sepsis W/Reflex 1.5 mmol/L (0.5-2.2)
[2023-05-11] MEDS: azithromycin 500 MG in sodium chloride 0.9% 250 ML 250 MG IV (07:43)
[2023-05-11 08:01] LABS: Add Urine Microscopic? NO; Charge for UA Resulting for Rev
[2023-05-11 08:12] LABS: Bilirubin Urine Neg (Negative); Blood Urine Neg (Negative); Glucose Urine UA Norm (Normal); Ketones Urine Negative (Negative); Leukocyte Esterase Urine Negative (Negative); Nitrate Urine Negative (Negative); Protein Urine Neg (Negative); Urine Appearance Clear (CLEAR); Urine Color Light yellow (Yellow); Urobilinogen Urine Norm (Negative); pH Urine 5 (5-7)
--- NOTE | 2023-05-11 08:41 | ECG_ITS ---
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 Measurements Intervals [place] Rate: 98 P: 0 [place]: 0 QRS: 58 QRSD: 88 T: 47 QT: 387 QTc: 495 Interpretive Statements ATRIAL FIBRILLATION MINIMAL ST DEPRESSION [0.025+ mV ST DEPRESSION] ABNORMAL RHYTHM ECG Compared to ECG 05/11/2023 02:48:53 ST (T wave) deviation now present Myocardial infarct finding no longer present Electronically Signed On 05-11-2023 10:03:58 CDT by Deisi Barroso M.D. [id number]
--- NOTE | 2023-05-11 08:58 | PC.PHAR ---
pt states she takes care of her own medications-pt states she takes eliquis 5mg tabs takes 1/2 tab (2.5mg) bid ext shows last filled 5mg bid on 04/25/23 90d/s-pt states she doesnt take cymbalta 30mg daily ext shows last filled 04/28/23 30d/s-pt states she is no longer taking norco 7.5/325mg filled 05/03/23 4d/s-ultram 50mg filled 05/02/23 5d/s or oxycodone 5mg filled 05/02/23 5d/s-pt states she finished cefadroxil 500mg filled 04/28/23 7d/s-notes are made in the pharmacy comments
[2023-05-11 09:15] LABS: Troponin 5 6HR 11.13 ng/L (0-10)
[2023-05-11 09:20] LABS: Troponin 5 6HR Delta -1.87 ng/L (0-12)
[2023-05-11] MEDS: thyroid 60 mg Tablet 90 MG PO (09:34)
[2023-05-11] MEDS: apixaban 5 mg Tablet 2.5 MG PO ×2 (09:34→21:36)
[2023-05-11] MEDS: morphine 4 mg/mL SDV 1 mL 2 MG IVP (11:03)
--- NOTE | 2023-05-11 11:51 | PC.OT ---
OT EVALUATION ORDERS RECEIVED; PATIENT IS SCREENED FOR SKILLED OT AND DOES NOT REQUIRE FURTHER OT SERVICES AT THIS TIME.
--- NOTE | 2023-05-11 14:52 | PM.MISC ---
Miscellaneous Note Purpose of Documentation: HR continues to be uncontrolled at 140 bpm. CTa chest withotu signs of PE. US gallbladder shows cirrhitic liver with mild hepatomegaly, thickend Gb wall negative garcia's sign no cholelithiasis, normal CBD. Venous duplex without signs of DVT. Continued tachycardia on acrdizem 15/hr, change to amiodarone infusion,. recent echo from august 2022 with Normal left ventricular size, systolic function and wall ?thickness, with no regional wall motion abnormalities. Left ?ventricular ejection fraction is estimated at 70 %, moderate tricuspid regurgitation.
--- NOTE | 2023-05-11 22:20 | PC.NURSE ---
amio gtt turned back up to 1 mg at 2225 per doctor telephone order. Patient also requested nascimento to be removed, dr notified and per telephone order catheter discontinued.
[2023-05-12] VITALS (9 sets, daily range): BP systolic 115–171; BP diastolic 95–113; PULSE 104–124; RESP 17–25; TEMP 36.5–37.1; O2SAT 91–100; BMI 21.9
--- NOTE | 2023-05-12 00:03 | PC.NURSE ---
Notified Dr about pt HR and BP, Dr put order for digoxin 250 mcg IVP once.
[2023-05-12] MEDS: digoxin 250 mcg/ml INJ 2 mL IVP ×3 (00:12→19:30)
[2023-05-12] MEDS: amlodipine 10 mg Tablet PO ×2 (02:43→08:33)
[2023-05-12] MEDS: acetaminophen 325 mg Tablet 650 MG PO (03:15)
--- NOTE | 2023-05-12 04:08 | PC.NURSE ---
Pt BP was manually 162/110 and on monitor is 172/112. Doctor notified gave telephone order of Amlodipine 10mg PO Q24hr.
[2023-05-12 04:56] LABS: Basophils % 0.5 %; Eosinophils # 0.1 10^3/uL (0.0-0.8); Eosinophils % 0.6 %; Hematocrit 30.5 % (36-47); Lymphocytes # 1.4 10^3/uL (0.8-4.8); Lymphocytes % 15.9 %; Mean Corpuscular HGB Conc 31.8 g/dL (30-55); Mean Corpuscular Hemoglobin 30.8 pg (27-33); Mean Corpuscular Volume 96.8 fl (85-98); Monocytes # 0.7 10^3/uL (0.2-0.9); Monocytes % 8.4 %; Neutrophils % 74.3 %; Nucleated Red Blood Cells % 0 %; Platelet Count 316 10^3/cmm (157-399); Red Blood Count 3.15 10^6/uL (3.85-5.65); Red Cell Distribution Width 15.1 % (12.1-15.1); White Blood Count 8.61 10^3/uL (3.29-11.43)
[2023-05-12] MEDS: pantoprazole 40 mg SDV IVP (05:07)
[2023-05-12] MEDS: metoprolol tartrate 50 mg Tablet PO (05:07)
[2023-05-12 05:13] LABS: Ammonia 29 umol/L (11-51)
[2023-05-12 05:15] LABS: Alanine Aminotransferase 144 U/L (0-33); Albumin Level 3.6 g/dL (3.5-5.2); Alkaline Phosphatase 272 U/L (35-105); Anion Gap 14.6 (5-19); Aspartate Amino Transferase 32 U/L (0-32); Blood Urea Nitrogen 12 mg/dL (8-23); Calcium 9.1 mg/dL (8.5-10.5); Carbon Dioxide 24 mmol/L (22-29); Chloride 97 mmol/L (98-107); Globulin 2.6 g/dL (1.3-4.6); Glomerular Filtration Rate 123.4 mL/min (90-130); Glucose 120 mg/dL (65-115); Osmolality Calculated 275 mOsm/kg (285-295); Potassium 3.6 mmol/L (3.5-5.1); Sodium 132 mmol/L (136-145); Total Bilirubin 0.9 mg/dL (0.15-1.2); Total Protein 6.2 g/dL (6.6-8.7)
[2023-05-12] MEDS: thyroid 60 mg Tablet 90 MG PO (08:33)
[2023-05-12] MEDS: apixaban 5 mg Tablet 2.5 MG PO ×2 (08:33→20:10)
--- NOTE | 2023-05-12 10:16 | PC.CHAP ---
Pastoral Care Encounter/Spiritual Assessment Type of Contact [] Declined software business analyst visit [] Patient/Family/Request visit [] Outpatient visit [] Follow-up visit [] Physician referral [] Code/Alert [x] Routine visit [] Staff referral [] Actively dying [] Patient sleeping [] Family support [] [] Out of room [] Palliative care [] [x] Receiving care in room [] Pre-surgical visit [] Trauma [] Long length of stay [] ICU visit [x] Other: Unable to to communicate with staff Relational/Emotional Strength [] Patient feels connected with others/family/visitors/staff [] Distress [] Loneliness/isolation [] Abandonment Spirituality of Patient [] Person of [place] [] Attends Hinduism of their [place] [] Believes in Prayer [] Reads Bible or Nondenominational materials [] There are Spiritual issues to be addressed Plating Tank Operator Interventions [] Prayer [] Active listening [] Non-anxious presence [] Spiritual/emotional support [] Crisis/trauma care [] Spiritual counseling [] Bereavement support [] Provided bereavement packet [] Provided Bible/devotional materials [] Provided toy/stuffed animal, coloring book to patient or family member [] Provided Communion [] Anointing/[place] [] Salvation [] Completed spiritual assessment [] Other: Impact on Illness or Injury [] Angry [] Fearful [] Anxious [] Often cries [] Exhaustion [] Unable to work [] Unable to attend zoroastrianism [] Unable to walk/stand [] Unable to read [] Unable to drive [] Unable to eat/drink [] Unable to sleep [] Unable to be with family [] Patient intubated [] Other: Summary Unable to to communicate with staff Time spent with patient 5 mins
--- NOTE | 2023-05-12 13:08 | P.PN_ITS ---
Subjective Subjective: Continues to have persistent A-fib with heart rate ranging between 110 to 130 bpm. She has been on amiodarone infusion since yesterday. Received 250 mcg of digoxin overnight at 11 PM. Denies any current complaints except palpitations. No chest pain or dyspnea currently. Lower extremity swelling improved over previous exam. Medications: Reviewed: Yes Vitals/I&O/Wt Last Vital Signs Temp 98.4 F 05/12/23 11:12 Pulse 113 H 05/12/23 11:12 Resp 21 H 05/12/23 11:12 BP 115/97 05/12/23 11:12 Pulse Ox 91 05/12/23 11:12 O2 Del Method Nasal Cannula 05/12/23 11:12 O2 Flow Rate 1 05/12/23 08:00 05/11/23 05/12/23 05/12/23 22:59 06:59 14:59 Intake Total 943.785 / 1338.452 296.715 / 296.715 Output Total 600 / 2620 750 / 3370 500 / 500 Balance 343.785 / -1281.548 -750 / -2031.548 -203.285 / -203.285 Weight last 48 hrs Weight 63.503 kg Weight 63.503 kg Physical Exam Narrative: General: No acute distress, AO x3 HEENT: PERRLA, pupils bilaterally equal and reactive, pallors not present Chest: Normal vesicular breath sounds, no added sounds, equal good air entry bilaterally CVS: S1-S2 irregular, tachycardia + Abdomen: Soft, nontender, no organomegaly, bowel sounds present Neuro: No focal deficits, no facial deformity, AO x3, power 5/5 in all limbs Extremities: Surgical dressing over right knee from recent knee replacement. Bilateral lower extremity edema, improved over previous exam. Urinary Catheter Management: Marshall: Cath Placed During This Visit: yes, but has since been removed by the nurse Reason for Continuing Indwelling Catheter: Decision to DC Catheter Urinary Catheter Date of Insertion: 05/11/23 Urinary Catheter Time of Insertion: 07:02 Date Urinary Catheter Removed: 05/12/23 Time Urinary Catheter Discontinued: 00:45 Data 05/12/23 04:48 05/12/23 04:48 Micro: Microbiology 05/11/23 06:24 Blood Culture - Preliminary Blood NEGATIVE TO DATE 05/11/23 06:20 Blood Culture - Preliminary Blood NEGATIVE TO DATE A&P Assessment and plan (1) Atrial fibrillation with RVR: Upon arrival patient had been on Cardizem infusion, however this was disc ontinued on May 11, 2023 as in spite of being on rate of 15/h, she continued to be in A-fib with RVR. Thereafter she has been on amiodarone infusion, heart rate continues to be between 110 to 130 bpm. Currently also on metoprolol 50 mg p.o. twice daily, increased to metoprolol tartrate 75 mg p.o. every 12 hours. Additionally received digoxin 250 mics overnight at 11 PM. We will repeat additional dose of 250 mics now and then again 6 hours later. Consult cardiology for persistent A-fib. Initially upon admission showing signs of fluid overload, received IV Lasix on day of admission. Typically takes Lasix 20 mg p.o. daily at home. Resume home dose of Lasix today. Lower extremity swelling is improved today compared to yesterday's exam. No crackles on auscultation currently. Electrolytes including potassium and magnesium in range. trop 11--> 11.3--> 11.13 trend not significant for ACS. Denies current chest pain. Lower extremity Doppler and CTA chest negative for VTE (2) CHF exacerbation: Acute on chronic with preserved ejection fraction Upon admission patient was noted to be hypervolemic. She received 40 mg of IV Lasix. Her lower extremity swelling is improving today. Resume p.o. Lasix 40 mg daily. Monitor in and outs and kidney function Echocardiogram from February 2023 with normal LVEF of 70%, normal systolic function and wall thickness, moderate tricuspid valve regurgitation and mild biatrial enlargement. It appears that the tricuspid valve regurgitation is pre existing and noted as far back as September 2021. PASP of 30 (3) Pleural effusion: Moderate right and mild left pleural effusion with dependent bibasilar atele ctasis. Suspect related to acute on chronic CHF exacerbation vs pulmonary hypertension (4) Transaminitis: Noted deranged LFTs with ALT at 224 upon admission, trending down to 144; AST now normalized from 80-22; alkaline phosphatase downtrending from 3 1 4-2 72. Incidentally CTA of the chest from admission showed abnormal density within the gallbladder suspicious for cholecystitis versus choledocholithiasis. This was followed up with a right upper quadrant ultrasound which showed cirrhotic liver with mild hepatomegaly. No cholelithiasis was noted. Negative Millan sign. No right upper quadrant pain therefore cholecystitis appearing unlikely. Patient denies any past history of cirrhosis, however looking back at her ultrasound from September 2021, she was noted to have a cirrhotic appearance of the liver and diffuse gallbladder wall thickening with edema. She denies any alcohol intake. Acute hepatitis serology from September 2021 was nonreactive, will repeat today. Back into September 2021 she was also noted to have abnormal transaminitis however also had adenovirus infection at that time which was thought to be the precipitant. Noted liver cirrhosis will need further evaluation as outpatient, may be related to hepatic congestion from tricuspid regurgitation and CHF. (5) Abnormal CT scan, gallbladder: As above further evaluated by USG Plan DVt ppx: On eliquis Full code Attestations Medical Necessity Statement*: Persistent A-fib, heart rate not yet under control, amiodarone infusion, cardiology consult Coding Level of Care Code Acute Code for Chg Fwd High MDM includes number and complexity of problems actively addressed during encounter, amount and/or complexity of data reviewed/ordered and described risk of complication, morbidity or mortality of management as documented Diagnoses Atrial fibrillation with RVR I48.91 CHF exacerbation I50.9 Pleural effusion J90 Transaminitis R74.[address] scan, gallbladder R93.2
--- NOTE | 2023-05-12 13:09 | PM.CONSULT ---
Providers/Reason For Consult Consulting Physician/Specialty*: Dr. Barroso, Cardiology Reason for Consult*: Atrail fibrillation with RVR Attending Physician: Anna Marie Oliveros MD Primary Care Provider: Adrien Platt MD History of Present Illness History of Present Illness Glory Thomas is a 67 year old female with a past medical history of atrial fibrillation, hypothyroidism, diastolic CHF, hypertension, on Eliquis, history of H. pylori gastritis and h/o anemia. She is here with A. fib with RVR and CHF exaerbation. She wason cardizem gtt that was transitioed to amio gtt and metoprolol dose was increased. She was given lasix for pulmonary congestion. CTA chest did not show PE but b/l pleural effusion was seen. Patient c/o palpitations and SOB more so with ambulation. No chest pain. Her symptoms of high HR started after her R knee replacement in [place] at [facility] [place]. She developed nausea, vomiting and abdominal pain for almost a week before she presented to the hospital. No hematochezia, bob, hematemesis. She had upper and lower GI endoscopy few months back. Review of Systems Const: Denies: fever(s), chills, change in appetite, change in weight, fatigue or malaise Eyes: Denies: change in vision ENMT: Denies: throat pain, swelling of lips/tongue, oral sores, bleeding gums, nasal congestion or epistaxis Card: Reports: edema (minimal); Denies: chest pain Resp: Denies: dyspnea or chest congestion GI: Denies: abdominal pain, nausea, vomiting, hematemesis, heartburn, diarrhea, constipation, change in bowel habits, hematochezia or melena : Denies: difficulty voiding, dysuria, oliguria or hematuria Musc: Denies: back pain, extremity swelling, joint pain or muscle weakness Skin/Breast: Denies: rash or erythema Neuro: Reports: headache(s) (Upon waking) Psych: Denies: anxiety, depression or irritability Endo: Denies: tired all the time Maynor/Lymph: Denies: easy bruising, easy bleeding, petechiae or purpura All/Imm: Denies: throat swelling, tongue swelling or acute wheezing Medications/Allergies Home Medications Medication Instructions Recorded Confirmed Last Taken Type cetirizine 10 mg tablet (All Day 10 mg PO DAILY PRN Allergy Symptoms 05/18/22 05/11/23 02/25/23 History Allergy (cetirizine)) nitroglycerin 0.4 mg sublingual 0.4 mg sublingual Q5M PRN chest 05/18/22 05/11/23 Unknown Rx tablet pain 30 days #30 tabs ferrous sulfate 325 mg (65 mg 325 mg PO BEDTIME 02/25/23 05/11/23 2 Weeks Ago History iron) tablet ~02/11/23 furosemide 20 mg tablet 20 mg PO QAM 02/25/23 05/11/23 02/25/23 History potassium chloride 10 mEq 10 meq PO QAM 02/25/23 05/11/23 02/25/23 History capsule,extended release amlodipine 2.5 mg tablet 2.5 mg PO DAILY PRN For BP above 03/08/23 05/11/23 Unknown Rx 150/100 #60 tabs omeprazole 40 mg capsule,delayed 40 mg PO BID 03/08/23 05/11/23 Unknown History release amiodarone 200 mg tablet 100 mg PO QAM 05/11/23 05/11/23 Unknown History apixaban 5 mg tablet (Eliquis) 2.5 mg PO BID 05/11/23 05/11/23 Unknown History [id number]-[id number]-[id number] 250 2 tab PO Q6H PRN Migraine Headache 05/11/23 05/11/23 Unknown History mg-250 mg-65 mg tablet (Excedrin Migraine) losartan 100 mg tablet 100 mg PO QAM 05/11/23 05/11/23 Unknown History metoprolol tartrate 25 mg tablet 37.5 mg PO BID 05/11/23 05/11/23 Unknown History ondansetron HCl 4 mg tablet 4 mg PO TID PRN Nausea And Vomiting 05/11/23 05/11/23 Unknown History thyroid (pork) 90 mg tablet 90 mg PO BEDTIME 05/11/23 05/11/23 Unknown History ([place] Thyroid) tizanidine 4 mg tablet 4 mg PO Q8H PRN Muscle Spasm 05/11/23 05/11/23 Unknown History Allergies Allergy/AdvReac Type Severity Reaction Status Date / Time No Known Allergies Allergy Verified 05/11/23 08:47 Current Medications Generic Name Dose Route Start Last Admin Trade Name Freq PRN Reason Stop Dose Admin Acetaminophen 650 mg 05/11/23 05:56 05/12/23 03:15 Acetaminophen 325 Mg Tablet PO 650 mg Q6H PRN Administration Mild/Mod Pain Or Temp >/= 101 Amlodipine Besylate 10 mg 05/12/23 02:37 05/12/23 08:33 Amlodipine 10 Mg Tablet PO 10 mg DAILY ADONAY Administration Apixaban 2.5 mg 05/11/23 09:00 05/12/23 08:33 Apixaban 5 Mg Tablet PO 2.5 mg BID@0900,2100 ADONAY Administration Amiodarone HCl 900 mg/ 518 mls @ 0 mls/hr 05/11/23 14:15 05/12/23 07:53 Dextrose/ IV Miscellaneous IV 1 mg/min Supplies .Q0M ADONAY 34.53 mls/hr Administration Protocol Per Protocol Metoprolol Tartrate 50 mg 05/11/23 18:00 05/12/23 05:07 Metoprolol Tartrate 50 Mg Tablet PO 50 mg Q12H ADONAY Administration Morphine Sulfate 2 mg 05/11/23 05:56 05/11/23 11:03 Morphine 4 Mg/Ml Sdv 1 Ml IVP 2 mg Q4H PRN Administration SEVERE PAIN Pantoprazole Sodium 40 mg 05/11/23 06:00 05/12/23 05:07 Pantoprazole 40 Mg Sdv IVP 40 mg Q24H ADONAY Administration Thyroid 90 mg 05/11/23 09:00 05/12/23 08:33 Thyroid 60 Mg Tablet PO 90 mg DAILY ADONAY Administration PFSH Acute PFSH: Medical History Atrial fibrillation Benign essential hypertension with target blood pressure below 140/90 Human adenovirus infection Hypertension Hyperthyroidism Surgical History History of carpal tunnel repair Family History Father CAD (coronary artery disease), Onset Age: 49 MD Mother Cancer Denies family history of Diabetes Clotting disorder Dementia Chronic kidney disease (CKD) Suicide Anesthesia complication Bleeding disorder Lung disease Stroke Social History Smoking and tobacco status: never smoked Desire information about alcohol rehabilitation?: No Substance/Drug Use: never Vitals/I&O/Wt Last Vital Signs Temp 98.4 F 05/12/23 11:12 Pulse 113 H 05/12/23 11:12 Resp 21 H 05/12/23 11:12 BP 115/97 05/12/23 11:12 Pulse Ox 91 05/12/23 11:12 O2 Del Method Nasal Cannula 05/12/23 11:12 O2 Flow Rate 1 05/12/23 08:00 05/11/23 05/12/23 05/12/23 22:59 06:59 14:59 Intake Total 943.785 / 1338.452 296.715 / 296.715 Output Total 600 / 2620 750 / 3370 500 / 500 Balance 343.785 / -1281.548 -750 / -2031.548 -203.285 / -203.285 Weight last 48 hrs Weight 140 lb Weight 140 lb Physical Exam Const: COMMON NORMALS: no acute distress, patient oriented x3 and alert GENERAL APPEARANCE: cooperative, comfortable, well kempt and well hydrated HENMT: COMMON NORMALS: hearing grossly normal bilaterally, external ears normal and moist oral mucous membranes FACE & SINUS: normal facial exam NOSE: Normal septum present and No nasal discharge present; no Epistaxis present EXTERNAL EAR: Yes external ears normal MOUTH: lip normal Eye: COMMON NORMALS: EOMs intact bilaterally and no scleral icterus GENERAL EYE: appearance normal, both eyes and all related structures ALIGNMENT: Yes alignment normal Neck/C-Spine: COMMON NORMALS: no lymphadenopathy, supple and no JVD GENERAL: Yes normal visual inspection and Yes trachea midline CAROTIDS: Yes normal carotid upstroke Lymph: LYMPHATIC: no lymphadenopathy noted Chest: COMMONS NORMALS: normal inspection of the chest and normal palpation of entire chest wall CHEST: Yes Symmetrical chest wall rise and No tenderness Resp: COMMON NORMALS: clear to auscultation bilaterally (except at bases, crakles+) EFFORT & INSPECTION: Yes able to speak in complete sentences, No tachypneic, No respiratory distress, No pursed lip breathing, No labored and No Actively coughing AUSCULTATION: clear to auscultation bilaterally (except at bases, crakles+), no crackles, no rales, no rhonchi and no wheezes Cardio: COMMON NORMALS: no JVD, regular rate, regular rhythm, S1 normal heart sound present, S2 normal heart sound present and Peripheral pulses 2+ throughout PALPATION: normal PMI RATE: regular rate RHYTHM: regular rhythm HEART SOUNDS: S1 normal heart sound present, S2 normal heart sound present, no click, no gallops and no murmurs BRUITS: no carotid bruits PERIPHERAL PULSES: Peripheral pulses 2+ throughout, radial pulses present, posterior tibial pulses present and dorsalis pedis present GI: COMMON NORMALS: Soft to palpation AUSCULTATION: Yes normoactive bowel sounds PALPATION: Yes Soft to palpation, No Tenderness to palpation present (GI), No Guarding due to palpation present (GI) and No Rigid due to palpation PERCUSSION: tympanic to percussion Extremity: GENERAL: No clubbing, No cyanosis, Yes edema and No pallor Neuro: COMMON NORMALS: patient oriented x3, CN's II-XII intact bilaterally and no focal motor deficits SENSORIUM/ORIENTATION: Yes alert Psych: COMMON NORMALS: Normal thought process present and speech normal APPEARANCE: Yes well kempt SPEECH: Yes normal speech MOOD & AFFECT: Yes euthymic mood THOUGHT PROCESS: Normal thought process present THOUGHT CONTENT: Yes Normal thought content present Urinary Catheter Management: Marshall: Cath Placed During This Visit: yes, but has since been removed by the nurse Reason for Continuing Indwelling Catheter: Decision to DC Catheter Urinary Catheter Date of Insertion: 05/11/23 Urinary Catheter Time of Insertion: 07:02 Date Urinary Catheter Removed: 05/12/23 Time Urinary Catheter Discontinued: 00:45 Data 05/12/23 04:48 05/12/23 04:48 Micro: Microbiology 05/11/23 06:24 Blood Culture - Preliminary Blood NEGATIVE TO DATE 05/11/23 06:20 Blood Culture - Preliminary Blood NEGATIVE TO DATE Other data: TTE (02/25/23) CONCLUSIONS ?1. Normal left ventricular size, systolic function and wall ?thickness, with no regional wall motion abnormalities. Left ?ventricular ejection fraction is estimated at 70 % ?2. Moderate tricuspid valve regurgitation. ?3. Mild biatrial enlargement. ?4. When compared to study dated 09/29/2021, tricuspid valve ?regurgitation may have improved. 09/29/21? Echo ?Normal left ventricular size and systolic function, EF 55 %. ?No gross regional wall motion abnormalities.? Segmental wall ?motion analysis difficult because of the atrial fibrillation ?rapid ventricular rate. ?[id number]-[id number] tricuspid valve regurgitation.? Estimated ?pulmonary artery peak systolic pressure of 38 mmHg. ?Biatrial enlargement-moderately dilated right atrium mildly ?dilated left atrium ?Trace mitral valve regurgitation. ?There is no pericardial effusion. ?There are no intracardiac masses. ?No previous study is available for comparison. 10/01/21 Stress Test 1. No significant EKG changes with the LexiScan infusion 2. No LexiScan induced chest pain or cardiac arrhythmia 3. Normal blood pressure and heart rate response ?1.? Myocardial perfusion imaging revealing fairly uniform myocardial tracer ?uptake with no significant perfusion abnormalities. ?2.? Normal LV ejection fraction of 53%. ?3.? LV wall motion analysis revealing no gross wall motion normalities. ?4.? Normal LV volume. ?5.? Elevated transischemic dilatation ratio, may suggest endocardial ischemia.? ?However the positive predictive value of this finding is limited. ?Possibly no significant coronary ischemia, based on the above findings A&P Assessment and plan (1) CHF exacerbation: on lasix 40 mg PO -diuresing well. (2) Atrial fibrillation with RVR: increase metoprolol tartrate to 75 mg BID -digoxin 250 mcg x 2 given today and 250 mcg x1 last night -was on amiodarone 100 mg at home- will restart at 200 mg PO BID -may need to increase metoprolol -I think once she is diuresed her HR will improve and she may convert. She has never needed CV before -On Eliquis 2. 5m g BID due to anemia? ([id number]=2/9 , 1 for HTN, 1 for age, 1 for CHF and 1 for sex) (3) Pleural effusion: (4) Anemia: (5) Gastritis: (6) Transaminitis: (7) Hypertension: Plan Moderate TR GERD Coding Level of Care Code 15338 Diagnoses CHF exacerbation I50.9 Atrial fibrillation with RVR I48.91 Pleural effusion J90 Anemia D64.9 Gastritis K29.70 Transaminitis R74.01 Hypertension I10
[2023-05-12] MEDS: FUROsemide 40 mg Tablet PO (13:46)
[2023-05-12] MEDS: amiodarone 200 mg Tablet PO (17:42)
[2023-05-12] MEDS: metoprolol tartrate 50 mg Tablet 75 MG PO (17:42)
[2023-05-13] VITALS (11 sets, daily range): BP systolic 108–146; BP diastolic 65–107; PULSE 52–111; RESP 16–31; TEMP 36.4–36.9; O2SAT 91–98
[2023-05-13 04:18] LABS: Basophils % 0.4 %; Eosinophils # 0.1 10^3/uL (0.0-0.8); Eosinophils % 0.8 %; Lymphocytes % 13.3 %; Mean Corpuscular Hemoglobin 31.1 pg (27-33); Mean Corpuscular Volume 94.3 fl (85-98); Mean Platelet Volume 8.9 fL (7.4-10.4); Monocytes # 0.7 10^3/uL (0.2-0.9); Monocytes % 8.9 %; Neutrophils % 76.2 %; Nucleated Red Blood Cells % 0 %; Platelet Count 313 10^3/cmm (157-399); Red Blood Count 3.18 10^6/uL (3.85-5.65); Red Cell Distribution Width 14.9 % (12.1-15.1); White Blood Count 7.74 10^3/uL (3.29-11.43)
[2023-05-13 04:36] LABS: Alanine Aminotransferase 113 U/L (0-33); Albumin Level 3.6 g/dL (3.5-5.2); Alkaline Phosphatase 248 U/L (35-105); Anion Gap 14.2 (5-19); Aspartate Amino Transferase 24 U/L (0-32); Blood Urea Nitrogen 10 mg/dL (8-23); Calcium 8.8 mg/dL (8.5-10.5); Carbon Dioxide 29 mmol/L (22-29); Chloride 95 mmol/L (98-107); Globulin 2.6 g/dL (1.3-4.6); Glucose 119 mg/dL (65-115); Osmolality Calculated 280 mOsm/kg (285-295); Potassium 3.2 mmol/L (3.5-5.1); Sodium 135 mmol/L (136-145); Total Bilirubin 0.9 mg/dL (0.15-1.2); Total Protein 6.2 g/dL (6.6-8.7)
[2023-05-13 05:02] LABS: Hepatitis A Antibody IgM Non-Reactive (Nonreactive); Hepatitis B Core AB, Total Non-Reactive (Nonreactive); Hepatitis B Surface AB 3.5 (11.5-1000); Hepatitis B Surface Antigen Non-Reactive (Nonreactive); Hepatitis C Virus Antibody Non-Reactive (Nonreactive)
[2023-05-13] MEDS: metoprolol tartrate 50 mg Tablet 75 MG PO (06:07)
[2023-05-13] MEDS: pantoprazole 40 mg SDV IVP (06:07)
[2023-05-13] MEDS: metoclopramide 5 mg/mL SDV 2 mL IVP (06:31)
[2023-05-13] MEDS: amlodipine 10 mg Tablet PO (08:54)
[2023-05-13] MEDS: ondansetron 2 mg/ML SDV 2 mL 4 MG IVP (08:54)
[2023-05-13] MEDS: amiodarone 200 mg Tablet PO ×2 (08:54→17:44)
[2023-05-13] MEDS: thyroid 60 mg Tablet 90 MG PO (08:54)
[2023-05-13] MEDS: potassium chloride ER 20 mEq Tablet PO (08:55)
[2023-05-13] MEDS: apixaban 5 mg Tablet 2.5 MG PO ×2 (08:55→20:31)
[2023-05-13] MEDS: FUROsemide 40 mg Tablet PO (08:55)
[2023-05-13] MEDS: lidocaine 1% 5 ML in potassium chloride premix 100 ML 52.5 ML IV (08:56)
--- NOTE | 2023-05-13 11:09 | PM.PN ---
Subjective Subjective: She is feeling better, converted to SB with HR in 50's. Medications: Reviewed: Yes Vitals/I&O/Wt Last Vital Signs Temp 97.5 F L 05/13/23 07:51 Pulse 105 H 05/13/23 07:51 Resp 19 H 05/13/23 07:51 BP 138/88 05/13/23 07:51 Pulse Ox 96 05/13/23 08:00 O2 Del Method Nasal Cannula 05/13/23 08:00 O2 Flow Rate 1 05/13/23 08:00 05/12/23 05/13/23 05/13/23 22:59 06:59 14:59 Intake Total 1215.073 / 1631.788 480 / 2111.788 Output Total 0 / 500 Balance 1215.073 / 1131.788 480 / 1611.788 Weight last 48 hrs Weight 140 lb Physical Exam Const: COMMON NORMALS: no acute distress, patient oriented x3 and alert GENERAL APPEARANCE: cooperative, comfortable, well kempt and well hydrated HENMT: COMMON NORMALS: hearing grossly normal bilaterally, external ears normal and moist oral mucous membranes FACE & SINUS: normal facial exam NOSE: Normal septum present and No nasal discharge present; no Epistaxis present EXTERNAL EAR: Yes external ears normal MOUTH: lip normal Eye: COMMON NORMALS: EOMs intact bilaterally and no scleral icterus GENERAL EYE: appearance normal, both eyes and all related structures ALIGNMENT: Yes alignment normal Neck/C-Spine: COMMON NORMALS: no lymphadenopathy, supple and no JVD GENERAL: Yes normal visual inspection and Yes trachea midline CAROTIDS: Yes normal carotid upstroke Lymph: LYMPHATIC: no lymphadenopathy noted Chest: COMMONS NORMALS: normal inspection of the chest and normal palpation of entire chest wall CHEST: Yes Symmetrical chest wall rise and No tenderness Resp: COMMON NORMALS: clear to auscultation bilaterally (except at bases, crakles+) EFFORT & INSPECTION: Yes able to speak in complete sentences, No tachypneic, No respiratory distress, No pursed lip breathing, No labored and No Actively coughing AUSCULTATION: clear to auscultation bilaterally (except at bases, crakles+), no crackles, no rales, no rhonchi and no wheezes Cardio: COMMON NORMALS: no JVD, regular rate, regular rhythm, S1 normal heart sound present, S2 normal heart sound present and Peripheral pulses 2+ throughout PALPATION: normal PMI RATE: regular rate RHYTHM: regular rhythm HEART SOUNDS: S1 normal heart sound present, S2 normal heart sound present, no click, no gallops and no murmurs BRUITS: no carotid bruits PERIPHERAL PULSES: Peripheral pulses 2+ throughout, radial pulses present, posterior tibial pulses present and dorsalis pedis present GI: COMMON NORMALS: Soft to palpation AUSCULTATION: Yes normoactive bowel sounds PALPATION: Yes Soft to palpation, No Tenderness to palpation present (GI), No Guarding due to palpation present (GI) and No Rigid due to palpation Extremity: GENERAL: No clubbing, No cyanosis, Yes edema and No pallor Neuro: COMMON NORMALS: patient oriented x3, CN's II-XII intact bilaterally and no focal motor deficits SENSORIUM/ORIENTATION: Yes alert Psych: COMMON NORMALS: Normal thought process present and speech normal APPEARANCE: Yes well kempt SPEECH: Yes normal speech MOOD & AFFECT: Yes euthymic mood THOUGHT PROCESS: Normal thought process present THOUGHT CONTENT: Yes Normal thought content present Urinary Catheter Management: Marshall: Cath Placed During This Visit: yes, but has since been removed by the nurse Reason for Continuing Indwelling Catheter: Decision to DC Catheter Urinary Catheter Date of Insertion: 05/11/23 Urinary Catheter Time of Insertion: 07:02 Date Urinary Catheter Removed: 05/12/23 Time Urinary Catheter Discontinued: 00:45 Data 05/13/23 03:37 05/13/23 03:37 Micro: Microbiology 05/11/23 06:24 Blood Culture - Preliminary Blood NEGATIVE TO DATE 05/11/23 06:20 Blood Culture - Preliminary Blood NEGATIVE TO DATE A&P Assessment and plan (1) CHF exacerbation: on lasix 40 mg PO -diuresing well. ~-2 L yesterday (2) Atrial fibrillation with RVR: on metoprolol tartrate to 75 mg BID -digoxin 250 mcg x 2 given today and 250 mcg x1 last night -was on amiodarone 100 mg at home- on 200 mg PO BID -may need to increase metoprolol -I think once she is diuresed her HR will improve and she may convert. She has never needed CV before -On Eliquis 2. 5m g BID due to anemia? ([id number]/ , 1 for HTN, 1 for age, 1 for CHF and 1 for sex) 05/13/23 -converted to SR /SB today -HR in 50's; decrease metoprolol to 50 mg BID and d/c amio gtt -will see if she tolerates amiodarone 200 mg BID. If not, may decraese to amiodarone 200 mg daily (3) Pleural effusion: (4) Anemia: (5) Gastritis: (6) Transaminitis: (7) Hypertension: Plan Moderate TR GERD Attestations Medical Necessity Statement*: needs hospital stay for CHF and A. fib with RVR Coding Level of Care Code 20597 Diagnoses CHF exacerbation I50.9 Atrial fibrillation with RVR I48.91 Pleural effusion J90 Anemia D64.9 Gastritis K29.70 Transaminitis R74.01 Hypertension I10
[2023-05-13] MEDS: potassium chloride oral liq 20 mEq/15 mL UDC 60 MEQ PO (12:17)
--- NOTE | 2023-05-13 17:32 | PM.PN ---
Subjective Subjective: Coverted to sinus rhythm this afternoon , with HR 53bpm now Medications: Reviewed: Yes Vitals/I&O/Wt Last Vital Signs Temp 98.1 F 05/13/23 11:38 Pulse 53 L 05/13/23 14:00 Resp 31 H 05/13/23 11:38 BP 136/82 05/13/23 11:38 Pulse Ox 91 05/13/23 11:38 O2 Del Method Room Air 05/13/23 11:38 O2 Flow Rate 1 05/13/23 08:00 05/13/23 05/13/23 05/13/23 06:59 14:59 22:59 Intake Total 480 / 2111.788 983 / 983 Output Total 0 / 500 Balance 480 / 1611.788 983 / 983 Weight last 48 hrs Weight 63.503 kg Physical Exam Narrative: General: No acute distress, AO x3 HEENT: PERRLA, pupils bilaterally equal and reactive, pallors not present Chest: Normal vesicular breath sounds, no added sounds, equal good air entry bilaterally CVS: S1-S2 irregular, tachycardia + Abdomen: Soft, nontender, no organomegaly, bowel sounds present Neuro: No focal deficits, no facial deformity, AO x3, power 5/5 in all limbs Extremities: Surgical dressing over right knee from recent knee replacement. Bilateral lower extremity edema, improved over previous exam. Urinary Catheter Management: Marshall: Cath Placed During This Visit: yes, but has since been removed by the nurse Reason for Continuing Indwelling Catheter: Decision to DC Catheter Urinary Catheter Date of Insertion: 05/11/23 Urinary Catheter Time of Insertion: 07:02 Date Urinary Catheter Removed: 05/12/23 Time Urinary Catheter Discontinued: 00:45 Data 05/13/23 03:37 05/13/23 03:37 A&P Assessment and plan (1) Atrial fibrillation with RVR: Upon arrival patient had been on Cardizem infusion, however this was discontinued on May 11, 2023 as in spite of being on rate of 15/h, she continued to be in A-fib with RVR. Thereafter she has been on amiodarone infusion, heart rate continues to be between 110 to 130 bpm. Currently also on metoprolol 50 mg p.o. twice daily, increased to metoprolol tartrate 75 mg p.o. every 12 hours. Additionally received digoxin 250 mics overnight at 11 PM. We will repeat additional dose of 250 mics now and then again 6 hours later. Consult cardiology for persistent A-fib. Initially upon admission showing signs of fluid overload, received IV Lasix on day of admission. Typically takes Lasix 20 mg p.o. daily at home. Resume home dose of Lasix today. Lower extremity swelling is improved today compared to yesterday's exam. No crackles on auscultation currently. Electrolytes including potassium and magnesium in range. trop 11--> 11.3--> 11.13 trend not significant for ACS. Denies current chest pain. Lower extremity Doppler and CTA chest negative for VTE (2) CHF exacerbation: Acute on chronic with preserved ejection fraction Upon admission patient was noted to be hypervolemic. She received 40 mg of IV Lasix. Her lower extremity swelling is improving today. Resume p.o. Lasix 40 mg daily. Monitor in and outs and kidney function Echocardiogram from February 2023 with normal LVEF of 70%, normal systolic function and wall thickness, moderate tricuspid valve regurgitation and mild biatrial enlargement. It appears that the tricuspid valve regurgitation is pre existing and noted as far back as September 2021. PASP of 30 (3) Pleural effusion: Moderate right and mild left pleural effusion with dependent bibasilar atelectasis. Suspect related to acute on chronic CHF exacerbation vs pulmonary hypertension (4) Transaminitis: Noted deranged LFTs with ALT at 224 upon admission, trending down to 144; AST now normalized from 80-22; alkaline phosphatase downtrending from 3 1 4-2 72. Incidentally CTA of the chest from admission showed abnormal density within the gallbladder suspicious for cholecystitis versus choledocholithiasis. This was followed up with a right upper quadrant ultrasound which showed cirrhotic liver with mild hepatomegaly. No cholelithiasis was noted. Negative Millan sign. No right upper quadrant pain therefore cholecystitis appearing unlikely. Patient denies any past history of cirrhosis, however looking back at her ultrasound from September 2021, she was noted to have a cirrhotic appearance of the liver and diffuse gallbladder wall thickening with edema. She denies any alcohol intake. Acute hepatitis serology from September 2021 was nonreactive, will repeat today. Back into September 2021 she was also noted to have abnormal transaminitis however also had adenovirus infection at that time which was thought to be the precipitant. Noted liver cirrhosis will need further evaluation as outpatient, may be related to hepatic congestion from tricuspid regurgitation and CHF. (5) Abnormal CT scan, gallbladder: As above further evaluated by [facility] Plan DVt ppx: On eliquis Full code Plan for today: HR controlled this afternoon, plan on monitoring over next 24 hrs, anticipate discharge if stable over next 24 hrs Attestations Medical Necessity Statement*: HR controlled this afternoon, continued monitoring over next 24 hrs to ensure stability Coding Level of Care Code Acute Code for Chg Fwd Diagnoses Atrial fibrillation with RVR I48.91 CHF exacerbation I50.9 Pleural effusion J90 Transaminitis R74.[address] scan, gallbladder R93.2
[2023-05-13] MEDS: metoprolol tartrate 50 mg Tablet PO (17:44)
[2023-05-14] VITALS: BP 128/63; PULSE 57; RESP 23; TEMP 36.9; O2SAT 95
[2023-05-14 03:57] LABS: Basophils % 0.6 %; Eosinophils # 0.1 10^3/uL (0.0-0.8); Eosinophils % 1.8 %; Hematocrit 32.4 % (36-47); Lymphocytes # 1.2 10^3/uL (0.8-4.8); Mean Corpuscular HGB Conc 30.9 g/dL (30-55); Mean Corpuscular Hemoglobin 31.3 pg (27-33); Mean Corpuscular Volume 101.3 fl (85-98); Monocytes % 14.2 %; Neutrophils # 4.46 10^3/uL (1.8-7.7); Nucleated Red Blood Cells % 0 %; Platelet Count 314 10^3/cmm (157-399); Red Cell Distribution Width 15.2 % (12.1-15.1); White Blood Count 6.85 10^3/uL (3.29-11.43)
[2023-05-14 04:00] VITALS: BP 157/66; PULSE 66; RESP 17; TEMP 36.9; O2SAT 95
[2023-05-14 04:25] LABS: Alanine Aminotransferase 83 U/L (0-33); Albumin Level 3.2 g/dL (3.5-5.2); Alkaline Phosphatase 237 U/L (35-105); Anion Gap 11.8 (5-19); Aspartate Amino Transferase 16 U/L (0-32); Blood Urea Nitrogen 15 mg/dL (8-23); Calcium 8.8 mg/dL (8.5-10.5); Carbon Dioxide 27 mmol/L (22-29); Chloride 99 mmol/L (98-107); Globulin 2.8 g/dL (1.3-4.6); Glomerular Filtration Rate 83.7 mL/min (90-130); Glucose 96 mg/dL (65-115); Osmolality Calculated 279 mOsm/kg (285-295); Potassium 3.8 mmol/L (3.5-5.1); Sodium 134 mmol/L (136-145); Total Bilirubin 0.8 mg/dL (0.15-1.2)
[2023-05-14] MEDS: acetaminophen 325 mg Tablet 650 MG PO ×2 (04:46→08:55)
[2023-05-14 06:00] VITALS: PULSE 67
[2023-05-14] MEDS: metoprolol tartrate 50 mg Tablet PO (06:44)
[2023-05-14] MEDS: pantoprazole 40 mg SDV IVP (06:44)
[2023-05-14] MEDS: FUROsemide 40 mg Tablet PO (08:46)
[2023-05-14] MEDS: amiodarone 200 mg Tablet PO (08:47)
[2023-05-14] MEDS: apixaban 5 mg Tablet 2.5 MG PO (08:47)
[2023-05-14] MEDS: amlodipine 10 mg Tablet PO (08:47)
[2023-05-14] MEDS: potassium chloride ER 20 mEq Tablet PO (08:47)
[2023-05-14 09:45] VITALS: BP 116/60; PULSE 48; RESP 17
--- NOTE | 2023-05-14 09:51 | P.PN_ITS ---
Subjective Subjective: Patient is alert awake without any acute respiratory distress denies any chest pain or shortness of breath she ambulated well with no pain or shortness of breath. Vital signs seems to be stable her heart rate in the 50s to 60s sinus rhythm. Vitals/I&O/Wt Last Vital Signs Temp 98.4 F 05/14/23 04:00 Pulse 48 L 05/14/23 09:45 Resp 17 05/14/23 09:45 BP 116/60 05/14/23 09:45 Pulse Ox 95 05/14/23 04:00 O2 Del Method Room Air 05/14/23 04:00 O2 Flow Rate 1 05/13/23 20:00 05/13/23 05/14/23 05/14/23 22:59 06:59 14:59 Intake Total 240 / 1223 100 / 1323 222 / 222 Output Total 0 / 0 Balance 240 / 1223 100 / 1323 222 / 222 Weight last 48 hrs Weight 140 lb Physical Exam Narrative: General: No acute distress, AO x3 HEENT: PERRLA, pupils bilaterally equal and reactive, pallors not present Chest: Normal vesicular breath sounds, no added sounds, equal good air entry b ilaterally CVS: S1-S2 regular rate and rhythm heart rate in the 50s to 60s sinus. Abdomen: Soft, nontender, no organomegaly, bowel sounds present Neuro: No focal deficits, no facial deformity, AO x3, power 5/5 in all limbs Extremities: Surgical dressing over right knee from recent knee replacement. Bilateral lower extremity edema, improved over previous exam. Urinary Catheter Management: Marshall: Cath Placed During This Visit: yes, but has since been removed by the nurse Reason for Continuing Indwelling Catheter: Decision to DC Catheter Urinary Catheter Date of Insertion: 05/11/23 Urinary Catheter Time of Insertion: 07:02 Date Urinary Catheter Removed: 05/12/23 Time Urinary Catheter Discontinued: 00:45 Data 05/14/23 03:12 05/14/23 03:12 A&P Assessment and plan (1) CHF exacerbation: Diastolic acute on chronic improved. Patient is euvolemic no significant edema. She is lying flat without any shortness of breath ambulated well. Patient can be discharged home from cardiac standpoint to follow-up with Dr. Barroso in 1 to 2 weeks. Patient stay on low-salt diet patient to continue her diuresis. Instructed to take any extra furosemide to 40 mg if her weight increases or her leg edema worsen. (2) Atrial fibrillation with RVR: Paroxysmal currently in normal sinus rhythm rate in the 50s to 60s. Patient to continue on p.o. amiodarone 200 twice a day for a week patient to follow-up with Dr. Barroso in a week to reduce the dose to 200 mg once a day. Continue p.o. metoprolol 50 twice a day patient instructed to hold for heart rate less than 55. Patient to continue Eliquis. (3) Anemia: Hemoglobin stable with no active bleeding currently. Attestations Medical Necessity Statement*: As per primary team. Patient is ready to be discharged from cardiac standpoint Coding Level of Care Code 26004 Diagnoses CHF exacerbation I50.9 Atrial fibrillation with RVR I48.91 Anemia D64.9
[2023-05-14] MEDS: thyroid 60 mg Tablet 90 MG PO (10:22)
--- NOTE | 2023-05-14 10:49 | PM.DCS ---
Discharge Providers Date of Admission: 05/11/23 05:21 Date of Discharge: May 14, 2023 Attending Provider at Admission: Yuri Lanier MD Attending Provider at Discharge: Anna Marie Oliveros MD Primary Care Provider: Adrien Platt MD Diagnoses at Discharge Discharge Diagnosis (1) CHF exacerbation: Status: Acute (2) Atrial fibrillation with RVR: Status: Acute (3) Anemia: Status: Acute Reason for Visit Reason for Visit: high heart rate Brief History: Glory Thomas is a 67 year old female with a past medical history of atrial fibrillation, on low-dose Eliquis due to history of gastric irritation, and H. pylori gastritis, hypothyroidism, CHF, hypertension, recent right knee replacement, who presents to [facility] due to nausea, vomiting, abdominal pain, chest pain, palpitations, shortness of breath.? She was found to have A-fib with RVR and evidence of acute on chronic CHF exacerbation. Hospital course is as below: Hospital Course Hospital Course (1) Atrial fibrillation with RVR: Upon arrival patient had been on Cardizem infusion, however this was discontinued on May 11, 2023 as in spite of being on rate of 15/h, she continued to be in A-fib with RVR. Thereafter she has been on amiodarone infusion, heart rate continued to be between 110 to 130 bpm. Currently also on metoprolol 50 mg p.o. twice daily, increased to metoprolol tartrate 75 mg p.o. every 12 hours. Additionally received digoxin Consulted cardiology for persistent A-fib. Eventually HR controlled with increasing amiodarone to 200mg BID and increasing metoprolol. With these changes HR changed to sinus rhythm on 05/13 with HR now 48-50, therefore metorpolol was readjusted down to 50BID. Currently discharge recommendations are continue on p.o. amiodarone 200 twice a day for a week patient to follow-up with Dr. Barroso in a week to reduce the dose to 200 mg once a day.? Continue p.o. metoprolol 50 twice a day patient instructed to hold for heart rate less than 55.? Patient to continue Eliquis. Electrolytes including potassium and magnesium in range. trop 11--> 11.3--> 11.13 trend not significant for ACS.? Lower extremity Doppler and CTA chest negative for VTE (2) CHF exacerbation: Acute on chronic with preserved ejection fraction treated with iv lasix initially on day 1, thereafter remained euvolemic on lasix 40mg po daily Echocardiogram from February 2023 with normal LVEF of 70%, normal systolic function and wall thickness, moderate tricuspid valve regurgitation and mild biatrial enlargement.? It appears that the tricuspid valve regurgitation is pre existing and noted as far back as September 2021. PASP of 30 (3) Pleural effusion: Moderate right and mild left pleural effusion with dependent bibasilar atelectasis. Suspect related to acute on chronic CHF exacerbation vs pulmonary hypertension (4) Transaminitis: Noted deranged LFTs with ALT at 224 upon admission, trending down to 144; AST now normalized from 80-22; alkaline phosphatase downtrending from 3 1 4-2 72. Incidentally CTA of the chest from admission showed abnormal density within the gallbladder suspicious for cholecystitis versus choledocholithiasis. This was followed up with a right upper quadrant ultrasound which showed cirrhotic liver with mild hepatomegaly.? No cholelithiasis was noted.? Negative Millan sign.? No right upper quadrant pain therefore cholecystitis appearing unlikely.? Patient denies any past history of cirrhosis, however looking back at her ultrasound from September 2021, she was noted to have a cirrhotic appearance of the liver and diffuse gallbladder wall thickening with edema. She denies any alcohol intake. Acute hepatitis serology negative follow up with PCP as outpatient. Noted liver cirrhosis will need further evaluation as outpatient, may be related to hepatic congestion from tricuspid regurgitation and CHF. She is being discharged today with control of HR and dyspnea. She feels well overall. No concerns at discharge Physical Exam Narrative: General: No acute distress, AO x3 HEENT: PERRLA, pupils bilaterally equal and reactive, pallors not present Chest: Normal vesicular breath sounds, no added sounds, equal good air entry bilaterally CVS: S1-S2 regular, no murmurs, no tachycardia, no gallops, no rubs Abdomen: Soft, nontender, no organomegaly, bowel sounds present Neuro: No focal deficits, no facial deformity, AO x3, power 5/5 in all limbs Extremities: Healthy surgical dressing over knee, not opened for exam as from recent surgery Urinary Catheter Management: Marshall: Cath Placed During This Visit: yes, but has since been removed by the nurse Reason for Continuing Indwelling Catheter: Decision to DC Catheter Urinary Catheter Date of Insertion: 05/11/23 Urinary Catheter Time of Insertion: 07:02 Date Urinary Catheter Removed: 05/12/23 Time Urinary Catheter Discontinued: 00:45 Discharge Data Studies Completed and Pending Completed Studies During Hospitalization Category Date Time Status CTA chest [CT angio chest PE protcl [id number]] Stat Cat Scan 05/11/23 04:16 Completed XR chest 1V portable [id number] Stat Exams 05/11/23 02:41 Completed US gall bladder 59491 Stat Ultrasound 05/11/23 05:55 Completed US venous duplex lower extremity bilat [CV venous Ultrasound 05/11/23 06:00 [place] [id number]] Routine Pending at discharge Category Date Time Status Blood Culture Stat Lab 05/11/23 06:24 Results Radiology Impressions Chest X-Ray 05/11/23 02:41 IMPRESSION: No acute findings. Chest CTA 05/11/23 04:16 IMPRESSION: 1. Moderate right pleural effusion, mild left pleural effusion, and small dependent bibasilar atelectasis. 2. No pulmonary embolism. 3. An 8 mm peripheral soft tissue nodule in the lateral segment of the right middle lobe is nonspecific and may represent a small atelectasis. For patients at low risk (minimal or absent history of smoking and of other known risk factors), recommend CT Chest at 6-12 months, then consider CT Chest at 18-24 months. For patients at high risk (history of smoking or of other known risk factors), recommend CT Chest at 6-12 months, then CT Chest at 18-24 months. (Reference: Penny) 4. Abnormal gallbladder. Right upper quadrant abdominal ultrasound is recommended to further evaluate the gallbladder. REFERENCES: Penny Butler, et al. Guidelines for Management of Incidental Pulmonary Nodules Detected on CT Images: From the Fleischner Society 2017. Radiology. 2017;284(1):228-243. Laboratory Results WBC 6.85 10^3/uL (3.29-11.43) 05/14/23 03:12 RBC 3.20 10^6/uL (3.85-5.65) L 05/14/23 03:12 Hgb 10.00 g/dL (11.27-16.99) L 05/14/23 03:12 Hct 32.4 % (36-47) L 05/14/23 03:12 MCV 101.3 fl (85-98) H D 05/14/23 03:12 MCH 31.3 pg (27-33) 05/14/23 03:12 MCHC 30.9 g/dL (30-55) D 05/14/23 03:12 RDW 15.2 % (12.1-15.1) H 05/14/23 03:12 Plt Count 314 10^3/cmm (157-399) 05/14/23 03:12 MPV 9.0 fL (7.4-10.4) 05/14/23 03:12 Neut % (Auto) 65.0 % 05/14/23 03:12 Lymph % (Auto) 18.0 % 05/14/23 03:12 [place] % (Auto) 14.2 % 05/14/23 03:12 Eos % (Auto) 1.8 % 05/14/23 03:12 Baso % (Auto) 0.6 % 05/14/23 03:12 Neut # (Auto) 4.46 10^3/uL (1.8-7.7) 05/14/23 03:12 Lymph # (Auto) 1.2 10^3/uL (0.8-4.8) 05/14/23 03:12 [place] # (Auto) 1.0 10^3/uL (0.2-0.9) H 05/14/23 03:12 Eos # (Auto) 0.1 10^3/uL (0.0-0.8) 05/14/23 03:12 Baso # (Auto) 0.0 10^3/uL (0.0-0.1) 05/14/23 03:12 Nucleated RBC % (auto) 0 % 05/14/23 03:12 Nucleated RBCs # 0.0 /100WBC 05/14/23 03:12 PT 14.50 SECONDS (12.1-14.9) 05/11/23 06:20 INR 1.09 (0.8-1.2) 05/11/23 06:20 D-Dimer 4.49 ug/mLFEU (0-0.59) H 05/11/23 02:55 Sodium 134 mmol/L (136-145) L 05/14/23 03:12 Potassium 3.8 mmol/L (3.5-5.1) 05/14/23 03:12 Chloride 99 mmol/L (98-107) 05/14/23 03:12 Carbon Dioxide 27 mmol/L (22-29) 05/14/23 03:12 Anion Gap 11.8 (5-19) 05/14/23 03:12 BUN 15 mg/dL (8-23) 05/14/23 03:12 Creatinine 0.7 mg/dL (0.5-0.9) 05/14/23 03:12 GFR Calculation 83.7 mL/min (90-130) L 05/14/23 03:12 Glucose 96 mg/dL (65-115) 05/14/23 03:12 Estimat Average Glucose 108 05/11/23 02:55 Hemoglobin A1c 5.4 % (4.0-6.0) 05/11/23 02:55 Calculated Osmolality 279 mOsm/kg (285-295) L 05/14/23 03:12 Lactic Acid 1.5 mmol/L (0.5-2.2) 05/11/23 06:20 Calcium 8.8 mg/dL (8.5-10.5) 05/14/23 03:12 Magnesium 2.0 mg/dL (1.7-2.3) 05/13/23 03:37 Total Bilirubin 0.8 mg/dL (0.15-1.2) 05/14/23 03:12 GGT 120 U/L (5-36) H 05/11/23 04:58 AST 16 U/L (0-32) 05/14/23 03:12 ALT 83 U/L (0-33) H 05/14/23 03:12 Alkaline Phosphatase 237 U/L (35-105) H 05/14/23 03:12 Ammonia 29 umol/L (11-51) 05/12/23 04:48 Troponin T Baseline 13 ng/L (0-10) H 05/11/23 02:55 Troponin T 120 Minute 11.30 ng/L (0-10) H 05/11/23 04:58 Delta Troponin T -1.70 ABS# (0-10) L 05/11/23 04:58 Troponin T Hi Sens 6Hr 11.13 ng/L (0-10) H 05/11/23 08:42 Troponin T Hi Sens 6Hr Delta -1.87 ng/L (0-12) L 05/11/23 08:42 C-Reactive Protein 23.4 mg/L (0.0-4.9) H 05/11/23 04:58 NT-Pro-B Natriuret Pep 4561 pg/mL (0-125) H 05/11/23 04:58 Total Protein 6.0 g/dL (6.6-8.7) L 05/14/23 03:12 Albumin 3.2 g/dL (3.5-5.2) L 05/14/23 03:12 Globulin 2.8 g/dL (1.3-4.6) 05/14/23 03:12 Triglycerides 74 mg/dL (0-150) 05/11/23 04:58 Cholesterol 110 mg/dL (0-200) 05/11/23 04:58 LDL Cholesterol, Calc 40 mg/dL (50-129) L 05/11/23 04:58 HDL Cholesterol 55 mg/dL (60-100) L 05/11/23 04:58 LDL/HDL Ratio 0.73 RATIO (0.00-3.22) 05/11/23 04:58 Cholesterol/HDL Ratio 2.00 mg/dL (0.0-4.40) 05/11/23 04:58 Lipase 25 U/L (13-60) 05/11/23 04:58 Procalcitonin 0.05 ng/mL (0-0.5) 05/11/23 04:58 TSH 4.56 uIU/mL (0.27-4.20) H 05/11/23 02:55 Urine Color Light yellow (Yellow) 05/11/23 07:29 Urine Appearance Clear (CLEAR) 05/11/23 07:29 Urine pH 5 (5-7) 05/11/23 07:29 Ur Specific [place] 1.010 (1.005-1.030) 05/11/23 07:29 Urine Protein Neg (Negative) 05/11/23 07:29 Urine Glucose (UA) Norm (Normal) 05/11/23 07:29 Urine Ketones Negative (Negative) 05/11/23 07:29 Urine Blood Neg (Negative) 05/11/23 07: Urine Nitrate Negative (Negative) 05/11/23 07: Urine Bilirubin Neg (Negative) 05/11/23 07:29 Urine Urobilinogen Norm mg/dL (Negative) 05/11/23 07:29 Ur Leukocyte Esterase Negative (Negative) 05/11/23 07:29 Ethyl Alcohol < 10 mg/dL (0-10) 05/11/23 04:58 Hepatitis A IgM Ab Non-reactive (Nonreactive) 05/13/23 03:37 Hep Bs Antigen Non-reactive (Nonreactive) 05/13/23 03:37 Hep Bs Antibody 3.5 (11.5-1000) L 05/13/23 03:37 Hep B Core Total Ab Non-reactive (Nonreactive) 05/13/23 03:37 Hepatitis C Antibody Non-reactive (Nonreactive) 05/13/23 03:37 Vitals Last Vital Signs Temp 98.4 F 05/14/23 04:00 Pulse 48 L 05/14/23 09:45 Resp 17 05/14/23 09:45 BP 116/60 05/14/23 09:45 Pulse Ox 95 05/14/23 04:00 O2 Del Method Room Air 05/14/23 04:00 Discharge Plan Discharge Patient Disposition: Home Condition: Stable Prescriptions: Continued omeprazole 40 mg capsule,delayed release(DR/EC) 40 mg PO BID amlodipine 2.5 mg tablet 2.5 mg PO DAILY PRN (Reason: For BP above 150/100) Qty: 60 3RF cetirizine [All Day Allergy (cetirizine)] 10 mg tablet 10 mg PO DAILY PRN (Reason: Allergy Symptoms) nitroglycerin 0.4 mg tablet, sublingual 0.4 mg sublingual Q5M PRN (Reason: chest pain) 30 Days Qty: 30 3RF Rx Instructions: until response; do not exceed 3 doses per episode ferrous sulfate 325 mg (65 mg iron) Tablet 325 mg PO BEDTIME potassium chloride 10 mEq capsule, extended release 10 meq PO QAM tizanidine 4 mg tablet 4 mg PO Q8H PRN (Reason: Muscle Spasm) ondansetron HCl 4 mg tablet 4 mg PO TID PRN (Reason: Nausea And Vomiting) losartan 100 mg tablet 100 mg PO QAM Excedrin Migraine 250-250-65 mg Tablet 2 tab PO Q6H PRN (Reason: Migraine Headache) [place] Thyroid 90 mg tablet 90 mg PO BEDTIME Eliquis 5 mg tablet 2.5 mg PO BID Changed furosemide 20 mg tablet 40 mg PO QAM 15 Days Qty: 30 0RF amiodarone 200 mg tablet 200 mg PO BID 30 Days Qty: 60 0RF metoprolol tartrate 25 mg tablet 50 mg PO BID 30 Days Qty: 30 0RF Discharge Orders: Discharge Order (Routine); Ordered 05/14/23 Ordered By: Anna Marie Oliveros Referrals: Deisi Barroso MD [Physician] - 1 week Adrien Platt MD [Primary Care Provider] - 1 week Discharge Diet: Usual diet and Cardiac Discharge Activity: Resume usual activity and Increase activity as tolerated Patient Instructions: Heart Failure (DC), CHF Stoplight, Opioid Safety Discharge Attestations Time Spent in Discharge Care*: greater than 30 min Status at Discharge: Cognitive status at discharge: cognitively intact, Behavioral status at discharge: cooperative, Quality Metrics Clinical Quality Measures [ No reported AMI, CVA or VTE this stay] Coding Level of Care Code Acute Code for Chg Fwd Diagnoses CHF exacerbation I50.9 Atrial fibrillation with RVR I48.91 Anemia D64.9
[2023-05-14 12:14] VITALS: BP 121/72; PULSE 60; RESP 18; TEMP 37.1
== END 2023-05-14 12:16 | disposition home or self-care (01) | DRG 308 ==
LOC: ER 05:16 → CSU 05:21 → ICU 05-13 15:51
PROVIDERS: Internal Medicine Cardiovascular Disease; Admitting Provider Family Medicine; Emergency Provider Emergency Medicine; PCP Family Medicine; Visit Provider Student in an Organized Health Care Education/Training Program
DX: I48.19 Other persistent atrial fibrillation (principal); I50.33 Acute on chronic diastolic (congestive) heart failure; Z79.01 Long term (current) use of anticoagulants; E03.9 Hypothyroidism, unspecified; I11.0 Hypertensive heart disease with heart failure; Z96.651 Presence of right artificial knee joint; I07.1 Rheumatic tricuspid insufficiency; K74.60 Unspecified cirrhosis of liver; M71.21 Synovial cyst of popliteal space [Baker], right knee; R93.2 Abnormal findings on diagnostic imaging of liver and biliary tract; D64.9 Anemia, unspecified; K21.9 Gastro-esophageal reflux disease without esophagitis; R74.01 Elevation of levels of liver transaminase levels
CPT/HCPCS: 36415; 51702; 71045; 71275; 76705; 80053; 80061; 80307; 81003; 82140; 82977; 83036; 83605; 83690; 83735; 83880; 84145; 84443; 84484; 85025; 85378; 85610; 86140; 86705; 86706; 86709; 86803; 87040; 87340; 93005; 93970; 94664; 96365; 96366; 96367; 96375; 96376; 97110; 97161; 99285; C9113; J0282; J0456; J0696; J1160; J1940; J2270; J2405; J2765; J3480; J3490; J7030; J7050; J7060; Q9967

== ENCOUNTER → 2023-05-31 10:20 | Outpatient (BNVA) | payer OTHER, SELFPAY | PROVIDERS: PCP Family Medicine; Visit Provider Family Medicine | DX: A04.8 Other specified bacterial intestinal infections (principal); K29.70 Gastritis, unspecified, without bleeding | CPT/HCPCS: 87338 ==

== ENCOUNTER → 2023-07-12 13:12 | Outpatient (BNVA) | payer OTHER, SELFPAY | PROVIDERS: PCP Family Medicine; Visit Provider Family Medicine | DX: E03.9 Hypothyroidism, unspecified (principal); Z51.81 Encounter for therapeutic drug level monitoring | CPT/HCPCS: 80053; 82306; 84439; 84443; 85025 ==

== ENCOUNTER 2023-08-02 07:42 | Outpatient (CLI) | payer OTHER, SELFPAY ==
--- NOTE | 2023-08-02 08:00 | NM_ITS ---
WS: [id number] NUCLEAR MEDICINE HIDA SCAN CLINICAL INFORMATION: RUQ pain TECHNIQUE: Following intravenous administration of 7.8 mCi of technetium 99m mebrofenin, images of th e abdomen were obtained over the course of 60 minutes. Next, gallbladder ejection fraction was determ ined by obtaining preprandial and one-hour postprandial images of the gallbladder following oral peggy stion of Ensure. COMPARISON: Ultrasound 05/11/2023 FINDINGS: Normal hepatic uptake. Normal hepatic excretion. Gallbladder is visualized by 50 minutes. No evidence of acute cholecystitis. Normal common bile duct and small bowel activity. Gallbladder ejection fraction 39% at the lower end of the range but within normal limits. No evidence of chronic cholecystitis. IMPRESSION: 1. No evidence of acute or chronic cholecystitis. 2. Gallbladder ejection fraction 39% at the lower end of the range but within normal limits.
== END 2023-08-02 07:43 | disposition home or self-care (01) ==
PROVIDERS: PCP Family Medicine; Visit Provider Family Medicine
DX: R11.0 Nausea (principal); R10.11 Right upper quadrant pain
CPT/HCPCS: 78227; A9537

== ENCOUNTER → 2024-02-17 08:33 | Outpatient (BNVA) | payer OTHER, MEDICARE, SELFPAY | PROVIDERS: PCP Family Medicine; Visit Provider Family Medicine | DX: Z51.81 Encounter for therapeutic drug level monitoring (principal); Z13.220 Encounter for screening for lipoid disorders; E03.9 Hypothyroidism, unspecified; R10.13 Epigastric pain | CPT/HCPCS: 80053; 80061; 83690; 84439; 84443; 85025 ==

== ENCOUNTER 2024-03-23 11:36 | Emergency (ER) | payer OTHER, MEDICARE, SELFPAY ==
--- NOTE | 2024-03-23 11:39 | ECG_ITS ---
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
--- NOTE | 2024-03-23 11:43 | XR_ITS ---
WS: [id number] Examination: XR chest 1V portable [id number] Reason for Exam: cp Date: March 23, 2024 Comparison: May 11, 2023 Findings: The heart is not enlarged. The mediastinum is not widened. There is no pulmonary edema or pleural effusion. There is no dense consolidation. XR/XR chest 1V portable [id number] Impression: No acute lung process is seen.
[2024-03-23 11:48] VITALS: BP 101/66; PULSE 82; RESP 20; TEMP 36.4; O2SAT 98; BMI 23.1
--- NOTE | 2024-03-23 12:12 | ED_ITS ---
HPI - Chest Pain 2 General: Chief Complaint: Chest Pain Stated Complaint: heart problems, dizzy, pass out, Time Seen by Provider: 03/23/24 11:56 Source: patient and EMS Mode of arrival: EMS Limitations: no limitations History of Present Illness: 68-year-old female with a history of atr ial fibs states she was on amiodarone they had stopped it she does take metoprolol states for last 3 weeks she has been having increasing palpitations and feeling her heart is racing she had some mild left-sided chest pains with the palpitations. She denies any shortness of breath denies any nausea or vomiting. Associated symptoms: Reports palpitations; Deny abdominal pain, dyspnea, fever(s), nausea or vomiting Related Data Home Medications Medication Instructions Recorded Confirmed cetirizine 10 mg tablet (All Day 10 mg PO DAILY PRN Allergy Symptoms 05/18/22 03/23/24 Allergy (cetirizine)) ferrous sulfate 325 mg (65 mg 325 mg PO BEDTIME 02/25/23 03/23/24 iron) tablet [id number]-ivvkloqcukzwc-xsvdndxo 250 2 tab PO Q6H PRN Migraine Headache 05/11/23 03/23/24 mg-250 mg-65 mg tablet (Excedrin Migraine) apixaban 5 mg tablet (Eliquis) 5 mg PO BID 03/23/24 03/23/24 losartan 100 mg tablet 100 mg PO DAILY 03/23/24 03/23/24 potassium chloride 10 mEq 10 meq PO DAILY 03/23/24 03/23/24 capsule,extended release Previous Rx's Medication Instructions Recorded nitroglycerin 0.4 mg sublingual 0.4 mg sublingual Q5M PRN chest 05/18/22 tablet pain 30 days #30 tabs amlodipine 5 mg tablet 5 mg PO DAILY #90 tabs 02/13/24 furosemide 20 mg tablet 20 mg PO QAM #90 tabs 02/13/24 omeprazole 20 mg capsule,delayed 20 mg PO DAILY #90 caps 02/17/24 release metoprolol tartrate 50 mg tablet 50 mg PO BID #180 tabs 02/19/24 thyroid (pork) 90 mg tablet 90 mg PO BEDTIME #30 tabs 03/08/24 ([place] Thyroid) Allergies Allergy/AdvReac Type Severity Reaction Status Date / Time No Known Allergies Allergy Verified 03/23/24 11:54 Review of Systems 2 Const: Reports: fatigue; Denies: fever(s), chills, body aches or change in appetite Eyes: Denies: blurry vision or eye discomfort ENMT: Denies: throat pain or dental pain Card: Reports: palpitations and irregular heart rhythm; Denies: chest pain Resp: Denies: dyspnea GI: Denies: abdominal pain, nausea, vomiting or diarrhea Musc: Denies: neck pain or back pain Skin/Breast: Denies: rash Neuro: Denies: headache(s) PFSH ED 2 PFSH: Medical History Hyperthyroidism Benign essential hypertension with target blood pressure below 140/90 Human adenovirus infection Hypertension Atrial fibrillation Surgical History History of total right knee replacement History of carpal tunnel repair Family History Father CAD (coronary artery disease), Onset Age: 49 [place] Mother Cancer Denies family history of Diabetes Clotting disorder Dementia Chronic kidney disease (CKD) Suicide Anesthesia complication Bleeding disorder Lung disease Stroke Social History Smoking and tobacco/nicotine status: never used tobacco/nicotine Substance/Drug Use: never Physical Exam 2 Const: COMMON NORMALS: patient oriented x3 HENMT: COMMON NORMALS: normocephalic and atraumatic HEAD & SCALP: n ormocephalic and atraumatic Eye: COMMON NORMALS: Equal, round and reactive pupils present and EOMs intact bilaterally PUPIL: Yes Equal, round and reactive pupils present Neck/C-Spine: COMMON NORMALS: full ROM and supple Chest: COMMONS NORMALS: normal inspection of the chest and normal palpation of entire chest wall Resp: COMMON NORMALS: normal respiratory effort, No retractions, No use of accessory muscles and clear to auscultation bilaterally AUSCULTATION: clear to auscultation bilaterally Cardio: COMMON NORMALS: No murmurs present (Cardio) RATE: tachycardic R HYTHM: abnormal rhythm irregularly irregular GI: COMMON NORMALS: Normal to inspection, nondistended, normoactive bowel sounds present, Soft to palpation, non-tender and no masses PALPATION: Yes Soft to palpation Extremity: COMMON NORMALS: normal to inspection and full ROM Neuro: COMMON NORMALS: patient oriented x3, moves all extremities and no focal motor deficits Psych: COMMON NORMALS: mental status grossly normal, Normal thought process present and cooperative THOUGHT PROCESS: Normal thought process present Skin: COMMON NORMALS: no rashes or lesions noted and no wounds GENERAL SKIN EXAM: no rashes or lesions noted Course 2 Vital Signs: Vital signs: Vital Signs Temperature 97.6 F 03/23/24 11:48 Pulse Rate 97 03/23/24 13:05 Respiratory Rate 17 03/23/24 13:05 Blood Pressure 103/76 03/23/24 13:05 Pulse Oximetry 98 03/23/24 13:05 Oxygen Delivery Me thod Room Air 03/23/24 13:05 MDM - Chest Pain Medical Decision Making Patient presents here with atrial for but heart rates improved here I did offer admission but she states she feels improved like to go home troponins here are negative she is stable for discharge she is follow-up with PCP and return if worsening. Medical Records I reviewed the patient's medical records. Lab Data I reviewed the patient's lab results. 03/23/24 12:09 03/23/24 12:09 Radiology Impressions Chest X-Ray 03/23/24 11:43 Impression: No acute lung process is seen. Laboratory Results WBC 6.72 10^3/uL (3.29-11.43) 03/23/24 12:09 RBC 4.39 10^6/uL (3.85-5.65) 03/23/24 12:09 Hgb 13.80 g/dL (11.27-16.99) 03/23/24 12:09 Hct 43.2 % (36-47) 03/23/24 12:09 MCV 98.4 fl (85-98) H 03/23/24 12:09 MCH 31.4 pg (27-33) 03/23/24 12:09 MCHC 31.9 g/dL (30-55) 03/23/24 12:09 RDW 12.4 % (12.1-15.1) 03/23/24 12:09 Plt Count 251 10^3/cmm (157-399) 03/23/24 12:09 MPV 9.3 fL (7.4-10.4) 03/23/24 12:09 Neut % (Auto) 49.5 % 03/23/24 12:09 Lymph % (Auto) 37.6 % 03/23/24 12:09 Door % (Auto) 9.5 % 03/23/24 12:09 Eos % (Auto) 2.4 % 03/23/24 12:09 Baso % (Auto) 0.9 % 03/23/24 12:09 Neut # (Auto) 3.32 10^3/uL (1.8-7.7) 03/23/24 12:09 Lymph # (Auto) 2.5 10^3/uL (0.8-4.8) 03/23/24 12:09 Door # (Auto) 0.6 10^3/uL (0.2-0.9) 03/23/24 12:09 Eos # (Auto) 0.2 10^3/uL (0.0-0.8) 03/23/24 12:09 Baso # (Auto) 0.1 10^3/uL (0.0-0.1) 03/23/24 12:09 Nucleated RBC % (auto) 0 % 03/23/24 12:09 Nucleated RBCs # 0.0 /100WBC 03/23/24 12:09 Sodium 139 mmol/L (136-145) 03/23/24 12:09 Potassium 4.1 mmol/L (3.5-5.1) 03/23/24 12:09 Chloride 105 mmol/L (98-107) 03/23/24 12:09 Carbon Dioxide 19 mmol/L (22-29) L 03/23/24 12:09 Anion Gap 19.1 (5-19) H 03/23/24 12:09 BUN 16 mg/dL (8-23) 03/23/24 12:09 Creatinine 0.8 mg/dL (0.5-0.9) 03/23/24 12:09 GFR Calculation 71.5 mL/min (90-130) L 03/23/24 12:09 Glucose 99 mg/dL (65-115) 03/23/24 12:09 Calculated Osmolality 289 mOsm/kg (285-295) 03/23/24 12:09 Calcium 9.5 mg/dL (8.5-10.5) 03/23/24 12:09 Total Bilirubin 0.5 mg/dL (0.15-1.2) 03/23/24 12:09 AST 42 U/L (0-32) H 03/23/24 12:09 ALT 52 U/L (0-33) H 03/23/24 12:09 Alkaline Phosphatase 111 U/L (35-105) H 03/23/24 12:09 Troponin T Baseline 13 ng/L (0-10) H 03/23/24 12:09 Troponin T 120 Minute 12.05 ng/L (0-10) H 03/23/24 14:20 Delta Troponin T -0.95 ABS# (0-10) L 03/23/24 14:20 NT-Pro-B Natriuret Pep 4301 pg/mL (0-125) H 03/23/24 12:09 Total Protein 6.7 g/dL (6.6-8.7) 03/23/24 12:09 Albumin 4.4 g/dL (3.5-5.2) 03/23/24 12:09 Globulin 2.3 g/dL (1.3-4.6) 03/23/24 12:09 All radiology interpretation(s) finalized by discharge EKG Data EKG 1: I personally reviewed and interpreted this EKG as follows: EKG interpretation date: 03/23/24 EKG interpretation time: 11:39 Interpretation: afib with rvr hr [address] elevatin qrs 86 qtc 397 Discharge Plan Discharge Patient Disposition: Home Clinical Impression: Atrial fibrillation Condition: Stable Prescriptions: No Action cetirizine [All Day Allergy (cetirizine)] 10 mg tablet 10 mg PO DAILY PRN (Reason: Allergy Symptoms) nitroglycerin 0.4 mg tablet, sublingual 0.4 mg sublingual Q5M PRN (Reason: chest pain) 30 Days Qty: 30 3RF Rx Instructions: until response; do not exceed 3 doses per episode omeprazole 20 mg capsule,delayed release(DR/EC) 20 mg PO DAILY Qty: 90 3RF metoprolol tartrate 50 mg tablet 50 mg PO BID Qty: 180 2RF amlodipine 5 mg tablet 5 mg PO DAILY Qty: 90 0RF furosemide 20 mg tablet 20 mg PO QAM Qty: 90 0RF [place] Thyroid 90 mg tablet 90 mg PO BEDTIME Qty: 30 0RF ferrous sulfate 325 mg (65 mg iron) Tablet 325 mg PO BEDTIME Excedrin Migraine 250-250-65 mg Tablet 2 tab PO Q6H PRN (Reason: Migraine Headache) potassium chloride 10 mEq capsule, extended release 10 meq PO DAILY losartan 100 mg tablet 100 mg PO DAILY Eliquis 5 mg tablet 5 mg PO BID Discharge Orders: Discharge ED (Routine); Ordered 03/23/24 Ordered By: Mac Sumner Referrals: Adrien Platt MD [Primary Care Provider] - Discharge Diet: Advance as tolerated Discharge Activity: Resume usual activity Patient Instructions: A-fib (Atrial Fibrillation) (ED) Coding Level of Care Code ED Monomer Recovery Supervisor for Germán Howard
[2024-03-23 12:17] LABS: Basophils # 0.1 10^3/uL (0.0-0.1); Basophils % 0.9 %; Eosinophils # 0.2 10^3/uL (0.0-0.8); Eosinophils % 2.4 %; Hematocrit 43.2 % (36-47); Lymphocytes # 2.5 10^3/uL (0.8-4.8); Lymphocytes % 37.6 %; Mean Corpuscular HGB Conc 31.9 g/dL (30-55); Mean Corpuscular Hemoglobin 31.4 pg (27-33); Mean Corpuscular Volume 98.4 fl (85-98); Mean Platelet Volume 9.3 fL (7.4-10.4); Monocytes # 0.6 10^3/uL (0.2-0.9); Monocytes % 9.5 %; Neutrophils # 3.32 10^3/uL (1.8-7.7); Neutrophils % 49.5 %; Nucleated Red Blood Cells % 0 %; Platelet Count 251 10^3/cmm (157-399); Red Blood Count 4.39 10^6/uL (3.85-5.65); Red Cell Distribution Width 12.4 % (12.1-15.1); White Blood Count 6.72 10^3/uL (3.29-11.43)
[2024-03-23] MEDS: sodium chloride 0.9% 500 ML 999 ML IV (12:23)
[2024-03-23 12:37] VITALS: BP 118/74; PULSE 93; O2SAT 94
[2024-03-23 12:49] LABS: Troponin(5th) Baseline 13 ng/L (0-10)
[2024-03-23 12:51] LABS: Alanine Aminotransferase 52 U/L (0-33); Albumin Level 4.4 g/dL (3.5-5.2); Alkaline Phosphatase 111 U/L (35-105); Aspartate Amino Transferase 42 U/L (0-32); Blood Urea Nitrogen 16 mg/dL (8-23); Calcium 9.5 mg/dL (8.5-10.5); Carbon Dioxide 19 mmol/L (22-29); Chloride 105 mmol/L (98-107); Creatinine Clr Calc Pharmacy 68.7428; Globulin 2.3 g/dL (1.3-4.6); Glomerular Filtration Rate 71.5 mL/min (90-130); Glucose 99 mg/dL (65-115); NT Pro B Type Natriuretic Pept 4301 pg/mL (0-125); Osmolality Calculated 289 mOsm/kg (285-295); Sodium 139 mmol/L (136-145); Total Bilirubin 0.5 mg/dL (0.15-1.2); Total Protein 6.7 g/dL (6.6-8.7)
[2024-03-23 12:53] LABS: Anion Gap 19.1 (5-19); Potassium 4.1 mmol/L (3.5-5.1)
[2024-03-23] MEDS: dilTIAZem 5 mg/mL SDV 5 mL IVP (13:00)
[2024-03-23 13:05] VITALS: BP 103/76; PULSE 97; RESP 17; O2SAT 98
[2024-03-23] MEDS: dilTIAZem 60 mg Tablet PO (13:05)
--- NOTE | 2024-03-23 14:02 | ECG_ITS ---
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
[2024-03-23 15:13] LABS: Troponin 5 2HR 12.05 ng/L (0-10); Troponin 5 2HR Delta -0.95 ABS# (0-10)
[2024-03-23 15:19] VITALS: BP 100/76; PULSE 90; O2SAT 95
[2024-03-23 17:03] VITALS: BP 106/76; PULSE 105; RESP 17; TEMP 36.4; O2SAT 97
== END 2024-03-23 16:04 | disposition home or self-care (01) ==
PROVIDERS: Emergency Provider Emergency Medicine; PCP Family Medicine
DX: I48.20 Chronic atrial fibrillation, unspecified (principal); Z79.01 Long term (current) use of anticoagulants; I10 Essential (primary) hypertension
CPT/HCPCS: 36415; 71045; 80053; 83880; 84484; 85025; 93005; 96361; 96374; 99285; J3490; J7040

== ENCOUNTER 2024-03-25 21:23 | Observation (INO) | payer OTHER, MEDICARE, SELFPAY ==
[2024-03-25 21:40] VITALS: BP 102/69; PULSE 77; RESP 17; TEMP 36.4; O2SAT 99; BMI 23.1
[2024-03-25 21:43] VITALS: BP 108/67; PULSE 96; RESP 18
--- NOTE | 2024-03-25 21:43 | ECG_ITS ---
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 Measurements Intervals [place] Rate: 78 P: 0 ID: 0 QRS: 34 QRSD: 90 T: 46 QT: 381 QTc: 435 Interpretive Statements ATRIAL FIBRILLATION POSSIBLE ANTERIOR MYOCARDIAL INFARCTION , PROBABLY OLD [30 ms Q WAVE IN V3/V4, OR R < 0.2 mV IN V4] Compared to ECG 03/23/2024 14:02:43 Myocardial infarct finding now present Electronically Signed On 03-26-2024 12:03:59 CDT by Sandeep Andres M.D. [id number]
--- NOTE | 2024-03-25 21:56 | XRR_ITS ---
PROCEDURE INFORMATION: Exam: XR Chest Exam date and time: 03/25/2024 10:06 PM Age: 68 years old Clinical indication: Shortness of breath; Patient HX: Chest pain; SOB; Palpitations; Afib TECHNIQUE: Imaging protocol: Radiologic exam of the chest. Views: 1 view. COMPARISON: CR XR chest 1V portable [id number] 03/23/2024 12:26 PM FINDINGS: Lungs: Unremarkable. No focal consolidation. Pleural spaces: No significant pleural effusion. No pneumothorax. Heart/Mediastinum: Unremarkable cardiomediastinal silhouette. Vasculature: Calcifications of the aortic arch. Bones/joints: Yoju-st-tvuhapda right glenohumeral joint osteoarthrosis. Mild bilateral acromioclavicular joint degeneration. Soft tissues: Soft tissues are unremarkable as visualized. XR/XR chest 1V portable [id number] IMPRESSION: No acute findings.
--- NOTE | 2024-03-25 21:56 | ECG_ITS ---
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 Measurements Intervals [place] Rate: 80 P: 0 NV: 0 QRS: 57 QRSD: 80 T: 70 QT: 393 QTc: 456 Interpretive Statements ATRIAL FIBRILLATION Compared to ECG 03/25/2024 21:41:36 Myocardial infarct finding no longer present Electronically Signed On 03-26-2024 12:03:46 CDT by Sandeep Andres M.D. [id number]
--- NOTE | 2024-03-25 22:11 | ED_ITS ---
Documented by User: JESSICA De La Torre 03/25/24 23:54 HPI - Chest Pain 2 General: Chief Complaint: Chest Pain Stated Complaint: afib issues Time Seen by Provider: 03/25/24 22:00 History of Present Illness: 68-year-old female comes in today with p alpitations. Patient reports that she was here on Tuesday and was medicated with some Cardizem when her heart rate was above 100. Patient then was given an oral dose and was discharged home. Patient states that when she got home she felt palpitations again and tried to get a hold of her primary care several times. Tonight she continued to have symptoms and decided to come into the ER. Patient sees a Dr. Mckenzie in [place] for her cardiology. Patient appears nontoxic. Patient appears in no pain. Patient appears anxious. Associated symptoms: Reports palpitations Related Data Home Medications Medication Instructions Recorded Confirmed cetirizine 10 mg tablet (All Day 10 mg PO DAILY PRN Allergy Symptoms 05/18/22 03/26/24 Allergy (cetirizine)) ferrous sulfate 325 mg (65 mg 325 mg PO BEDTIME 02/25/23 03/26/24 iron) tablet imcuwtr-ugapzknfjdwbq-avqrpvbb 250 2 tab PO Q6H PRN Migraine Headache 05/11/23 03/26/24 mg-250 mg-65 mg tablet (Excedrin Migraine) apixaban 5 mg tablet (Eliquis) 5 mg PO BID 03/23/24 03/26/24 losartan 100 mg tablet 100 mg PO DAILY 03/23/24 03/26/24 potassium chloride 10 mEq 10 meq PO DAILY 03/23/24 03/26/24 capsule,extended release Previous Rx's Medication Instructions Recorded nitroglycerin 0.4 mg sublingual 0.4 mg sublingual Q5M PRN chest 05/18/22 tablet pain 30 days #30 tabs amlodipine 5 mg tablet 5 mg PO DAILY #90 tabs 02/13/24 furosemide 20 mg tablet 20 mg PO QAM #90 tabs 02/13/24 omeprazole 20 mg capsule,delayed 20 mg PO DAILY #90 caps 02/17/24 release metoprolol tartrate 50 mg tablet 50 mg PO BID #180 tabs 02/19/24 thyroid (pork) 90 mg tablet 90 mg PO BEDTIME #30 tabs 03/08/24 ([place] Thyroid) Allergies Allergy/AdvReac Type Severity Reaction Status Date / Time No Known Allergies Allergy Verified 03/25/24 21:43 Review of Systems 2 General: Reports: 10 or more systems reviewed and unremarkable except in HPI and below Card: Reports: palpitations PFSH ED 2 PFSH: Medical History Hyperthyroidism Benign essential hypertension with target blood pressure below 140/90 Human adenovirus infection Hypertension Atrial fibrillation Surgical History History of total right knee replacement History of carpal tunnel repair Family History Father CAD (coronary artery disease), Onset Age: 49 [place] Mother Cancer Denies family history of Diabetes Clotting disorder Dementia Chronic kidney disease (CKD) Suicide Anesthesia complication Bleeding disorder Lung disease Stroke Social History Smoking and tobacco/nicotine status: never used tobacco/nicotine Substance/Drug Use: never Physical Exam 2 Const: COMMON NORMALS: alert HENMT: COMMON NORMALS: normocephalic HEAD & SCALP: normocephalic Neck/C-Spine: COMMON NORMALS: full ROM Resp: COMMON NORMALS: normal respiratory effort Cardio: COMMON NORMALS: regular rate RATE: regular rate RHYTHM: abnormal rhythm (A-fib) GI: AUSCULTATION: Yes normoactive bowel sounds : COMMON NORMALS: Yes no CVA tenderness BLADDER/KIDNEY EXAM: Yes no CVA tenderness Back/Pelvis: COMMON NORMALS: no CVA tenderness Extremity: COMMON NORMALS: full ROM Neuro: SENSORIUM/ORIENTATION: Yes alert Skin: COMMON NORMALS: turgor normal GENERAL SKIN EXAM: turgor normal Course 2 Vital Signs: Vital signs: Vital Signs Temperature 97.7 F 03/26/24 00:21 Pulse Rate 78 03/26/24 00:21 Respiratory Rate 16 03/26/24 00:21 Blood Pressure 125/80 03/26/24 00:21 Pulse Oximetry 96 03/26/24 00:21 Oxygen Delivery Me thod Room Air 03/26/24 00:21 MDM - Chest Pain Medical Decision Making 68-year-old female comes in today for complaints of irregular heart rate. On exam patient appears nontoxic. Patient appears no acute distress. Heart rate ranges between 70 and 80 with the monitor showing atrial fed. Blood pressure is 102/69. Patient is afebrile. Patient reports no cough or urinary difficulty. Differential diagnosis includes but not limited to anxiety, atrial fibs with RVR, ACS, CHF. CBC and CMP were unremarkable. Troponin was 13 initially. Patient was monitored and her rate ranged between 90 and 150. Patient was started on a Cardizem drip for better control. Patient was offered admission and would like to be admitted to get control of her atrial fibs. Reviewed patient with Dr. Brown, attending ER physician, agreed with plan for admission. Talk with Dr. Cedillo, hospitalist, who agreed to observation to CSU. Lab Data 03/25/24 22:14 03/25/24 22:14 Radiology Impressions Chest X-Ray 03/25/24 21:56 IMPRESSION: No acute findings. Laboratory Results WBC 6.47 10^3/uL (3.29-11.43) 03/25/24 22:14 RBC 4.10 10^6/uL (3.85-5.65) 03/25/24 22:14 Hgb 12.90 g/dL (11.27-16.99) 03/25/24 22:14 Hct 39.1 % (36-47) 03/25/24 22:14 MCV 95.4 fl (85-98) 03/25/24 22:14 MCH 31.5 pg (27-33) 03/25/24 22:14 MCHC 33.0 g/dL (30-55) 03/25/24 22:14 RDW 12.2 % (12.1-15.1) 03/25/24 22:14 Plt Count 227 10^3/cmm (157-399) 03/25/24 22:14 MPV 9.2 fL (7.4-10.4) 03/25/24 22:14 Neut % (Auto) 53.0 % 03/25/24 22:14 Lymph % (Auto) 35.4 % 03/25/24 22:14 [place] % (Auto) 7.7 % 03/25/24 22:14 Eos % (Auto) 2.8 % 03/25/24 22:14 Baso % (Auto) 0.8 % 03/25/24 22:14 Neut # (Auto) 3.43 10^3/uL (1.8-7.7) 03/25/24 22:14 Lymph # (Auto) 2.3 10^3/uL (0.8-4.8) 03/25/24 22:14 [place] # (Auto) 0.5 10^3/uL (0.2-0.9) 03/25/24 22:14 Eos # (Auto) 0.2 10^3/uL (0.0-0.8) 03/25/24 22:14 Baso # (Auto) 0.1 10^3/uL (0.0-0.1) 03/25/24 22:14 Nucleated RBC % (auto) 0 % 03/25/24 22:14 Nucleated RBCs # 0.0 /100WBC 03/25/24 22:14 Sodium 142 mmol/L (136-145) 03/25/24 22:14 Potassium 3.7 mmol/L (3.5-5.1) 03/25/24 22:14 Chloride 105 mmol/L (98-107) 03/25/24 22:14 Carbon Dioxide 25 mmol/L (22-29) 03/25/24 22:14 Anion Gap 15.7 (5-19) 03/25/24 22:14 BUN 17 mg/dL (8-23) 03/25/24 22:14 Creatinine 1.0 mg/dL (0.5-0.9) H 03/25/24 22:14 GFR Calculation 55.3 mL/min (90-130) L 03/25/24 22:14 Glucose 76 mg/dL (65-115) 03/25/24 22:14 Calculated Osmolality 294 mOsm/kg (285-295) 03/25/24 22:14 Calcium 9.2 mg/dL (8.5-10.5) 03/25/24 22:14 Total Bilirubin 0.3 mg/dL (0.15-1.2) 03/25/24 22:14 AST 20 U/L (0-32) 03/25/24 22:14 ALT 34 U/L (0-33) H 03/25/24 22:14 Alkaline Phosphatase 100 U/L (35-105) 03/25/24 22:14 Troponin T Baseline 13 ng/L (0-10) H 03/25/24 22:14 Troponin T 120 Minute 10.44 ng/L (0-10) H 03/25/24 23:58 Delta Troponin T -2.56 ABS# (0-10) L 03/25/24 23:58 Total Protein 6.2 g/dL (6.6-8.7) L 03/25/24 22:14 Albumin 4.2 g/dL (3.5-5.2) 03/25/24 22:14 Globulin 2.0 g/dL (1.3-4.6) 03/25/24 22:14 Lipase 33 U/L (13-60) 03/25/24 22:14 TSH 3.81 uIU/mL (0.27-4.20) 03/25/24 23:58 Urine Color Yellow (Yellow) 03/25/24 22:42 Urine Appearance Clear (CLEAR) 03/25/24 22:42 Urine pH 5.0 (5-7) 03/25/24 22:42 Ur Specific Erhard 1.007 (1.005-1.030) 03/25/24 22:42 Urine Protein Negative (Negative) 03/25/24 22:42 Urine Glucose (UA) Negative (Normal) 03/25/24 22:42 Urine Ketones Negative (Negative) 03/25/24 22:42 Urine Blood Negative (Negative) 03/25/24 22:42 Urine Nitrate Negative (Negative) 03/25/24 22:42 Urine Bilirubin Negative (Negative) 03/25/24 22:42 Urine Urobilinogen 0.2 mg/dL (Negative) 03/25/24 22:42 Ur Leukocyte Esterase Negative (Negative) 03/25/24 22:42 Urine RBC 0-2 /hpf (0-2) 03/25/24 22:42 Urine WBC 0-5 /hpf (0-5) 03/25/24 22:42 Ur Squamous Epith Cells 0-5 /hpf (0-5) 03/25/24 22:42 Amorphous Sediment Not Reportable 03/25/24 22:42 Urine Bacteria None seen /hpf (NONE) 03/25/24 22:42 Hyaline Casts 0.40 /lpf 03/25/24 22:42 All radiology interpretation(s) finalized by discharge Discharge Plan Discharge Patient Disposition: Placed in Observation Admit Provider: Adrien Cedillo Clinical Impression: Atrial fibrillation with RVR Coding Level of Care Code ED Grinder Dresser for Chg Fwd Documented by User: Sae Brown, 03/26/24 01:05 HPI - Chest Pain 2 General: Chief Complaint: Chest Pain Stated Complaint: afib issues Time Seen by Provider: 03/25/24 22:00 Related Data Home Medications Medication Instructions Recorded Confirmed cetirizine 10 mg tablet (All Day 10 mg PO DAILY PRN Allergy Symptoms 05/18/22 03/26/24 Allergy (cetirizine)) ferrous sulfate 325 mg (65 mg 325 mg PO BEDTIME 02/25/23 03/26/24 iron) tablet flczniy-udufacatgrfgd-owhlnmte 250 2 tab PO Q6H PRN Migraine Headache 05/11/23 03/26/24 mg-250 mg-65 mg tablet (Excedrin Migraine) apixaban 5 mg tablet (Eliquis) 5 mg PO BID 03/23/24 03/26/24 losartan 100 mg tablet 100 mg PO DAILY 03/23/24 03/26/24 potassium chloride 10 mEq 10 meq PO DAILY 03/23/24 03/26/24 capsule,extended release Previous Rx's Medication Instructions Recorded nitroglycerin 0.4 mg sublingual 0.4 mg sublingual Q5M PRN chest 05/18/22 tablet pain 30 days #30 tabs amlodipine 5 mg tablet 5 mg PO DAILY #90 tabs 02/13/24 furosemide 20 mg tablet 20 mg PO QAM #90 tabs 02/13/24 omeprazole 20 mg capsule,delayed 20 mg PO DAILY #90 caps 02/17/24 release metoprolol tartrate 50 mg tablet 50 mg PO BID #180 tabs 02/19/24 thyroid (pork) 90 mg tablet 90 mg PO BEDTIME #30 tabs 03/08/24 ([place] Thyroid) Allergies Allergy/AdvReac Type Severity Reaction Status Date / Time No Known Allergies Allergy Verified 03/25/24 21:43 PFSH ED 2 PFSH: Medical History Hyperthyroidism Benign essential hypertension with target blood pressure below 140/90 Human adenovirus infection Hypertension Atrial fibrillation Surgical History History of total right knee replacement History of carpal tunnel repair Family History Father CAD (coronary artery disease), Onset Age: 49 [place] Mother Cancer Denies family history of Diabetes Clotting disorder Dementia Chronic kidney disease (CKD) Suicide Anesthesia complication Bleeding disorder Lung disease Stroke Social History Smoking and tobacco/nicotine status: never used tobacco/nicotine Substance/Drug Use: never Course 2 Vital Signs: Vital signs: Vital Signs Temperature 97.7 F 03/26/24 00:21 Pulse Rate 78 03/26/24 00:21 Respiratory Rate 16 03/26/24 00:21 Blood Pressure 125/80 03/26/24 00:21 Pulse Oximetry 96 03/26/24 00:21 Oxygen Delivery Me thod Room Air 03/26/24 00:21 MDM - Chest Pain Medical Decision Making 68-year-old female comes in today for complaints of irregular heart rate. On exam patient appears nontoxic. Patient appears no acute distress. Heart rate ranges between 70 and 80 with the monitor showing atrial fed. Blood pressure is 102/69. Patient is afebrile. Patient reports no cough or urinary difficulty. Differential diagnosis includes but not limited to anxiety, atrial fibs with RVR, ACS, CHF. CBC and CMP were unremarkable. Troponin was 13 initially. Patient was monitored and her rate ranged between 90 and 150. Patient was started on a Cardizem drip for better control. Patient was offered admission and would like to be admitted to get control of her atrial fibs. Reviewed patient with Dr. Brown, attending ER physician, agreed with plan for admission. Talk with Dr. Cedillo, hospitalist, who agreed to observation to CSU. This patient was originally seen by JESSICA Yarbrough.? I agree with his history, evaluation, and treatment. Lab Data 03/25/24 22:14 03/25/24 22:14 Radiology Impressions Chest X-Ray 03/25/24 21:56 IMPRESSION: No acute findings. Laboratory Results WBC 6.47 10^3/uL (3.29-11.43) 03/25/24 22:14 RBC 4.10 10^6/uL (3.85-5.65) 03/25/24 22:14 Hgb 12.90 g/dL (11.27-16.99) 03/25/24 22:14 Hct 39.1 % (36-47) 03/25/24 22:14 MCV 95.4 fl (85-98) 03/25/24 22:14 MCH 31.5 pg (27-33) 03/25/24 22:14 MCHC 33.0 g/dL (30-55) 03/25/24 22:14 RDW 12.2 % (12.1-15.1) 03/25/24 22:14 Plt Count 227 10^3/cmm (157-399) 03/25/24 22:14 MPV 9.2 fL (7.4-10.4) 03/25/24 22:14 Neut % (Auto) 53.0 % 03/25/24 22:14 Lymph % (Auto) 35.4 % 03/25/24 22:14 [place] % (Auto) 7.7 % 03/25/24 22:14 Eos % (Auto) 2.8 % 03/25/24 22:14 Baso % (Auto) 0.8 % 03/25/24 22:14 Neut # (Auto) 3.43 10^3/uL (1.8-7.7) 03/25/24 22:14 Lymph # (Auto) 2.3 10^3/uL (0.8-4.8) 03/25/24 22:14 [place] # (Auto) 0.5 10^3/uL (0.2-0.9) 03/25/24 22:14 Eos # (Auto) 0.2 10^3/uL (0.0-0.8) 03/25/24 22:14 Baso # (Auto) 0.1 10^3/uL (0.0-0.1) 03/25/24 22:14 Nucleated RBC % (auto) 0 % 03/25/24 22:14 Nucleated RBCs # 0.0 /100WBC 03/25/24 22:14 Sodium 142 mmol/L (136-145) 03/25/24 22:14 Potassium 3.7 mmol/L (3.5-5.1) 03/25/24 22:14 Chloride 105 mmol/L (98-107) 03/25/24 22:14 Carbon Dioxide 25 mmol/L (22-29) 03/25/24 22:14 Anion Gap 15.7 (5-19) 03/25/24 22:14 BUN 17 mg/dL (8-23) 03/25/24 22:14 Creatinine 1.0 mg/dL (0.5-0.9) H 03/25/24 22:14 GFR Calculation 55.3 mL/min (90-130) L 03/25/24 22:14 Glucose 76 mg/dL (65-115) 03/25/24 22:14 Calculated Osmolality 294 mOsm/kg (285-295) 03/25/24 22:14 Calcium 9.2 mg/dL (8.5-10.5) 03/25/24 22:14 Total Bilirubin 0.3 mg/dL (0.15-1.2) 03/25/24 22:14 AST 20 U/L (0-32) 03/25/24 22:14 ALT 34 U/L (0-33) H 03/25/24 22:14 Alkaline Phosphatase 100 U/L (35-105) 03/25/24 22:14 Troponin T Baseline 13 ng/L (0-10) H 03/25/24 22:14 Troponin T 120 Minute 10.44 ng/L (0-10) H 03/25/24 23:58 Delta Troponin T -2.56 ABS# (0-10) L 03/25/24 23:58 Total Protein 6.2 g/dL (6.6-8.7) L 03/25/24 22:14 Albumin 4.2 g/dL (3.5-5.2) 03/25/24 22:14 Globulin 2.0 g/dL (1.3-4.6) 03/25/24 22:14 Lipase 33 U/L (13-60) 03/25/24 22:14 TSH 3.81 uIU/mL (0.27-4.20) 03/25/24 23:58 Urine Color Yellow (Yellow) 03/25/24 22:42 Urine Appearance Clear (CLEAR) 03/25/24 22:42 Urine pH 5.0 (5-7) 03/25/24 22:42 Ur Specific [place] 1.007 (1.005-1.030) 03/25/24 22:42 Urine Protein Negative (Negative) 03/25/24 22:42 Urine Glucose (UA) Negative (Normal) 03/25/24 22:42 Urine Ketones Negative (Negative) 03/25/24 22:42 Urine Blood Negative (Negative) 03/25/24 22:42 Urine Nitrate Negative (Negative) 03/25/24 22:42 Urine Bilirubin Negative (Negative) 03/25/24 22:42 Urine Urobilinogen 0.2 mg/dL (Negative) 03/25/24 22:42 Ur Leukocyte Esterase Negative (Negative) 03/25/24 22:42 Urine RBC 0-2 /hpf (0-2) 03/25/24 22:42 Urine WBC 0-5 /hpf (0-5) 03/25/24 22:42 Ur Squamous Epith Cells 0-5 /hpf (0-5) 03/25/24 22:42 Amorphous Sediment Not Reportable 03/25/24 22:42 Urine Bacteria None seen /hpf (NONE) 03/25/24 22:42 Hyaline Casts 0.40 /lpf 03/25/24 22:42 Discharge Plan Discharge Patient Disposition: Placed in Observation Admit Provider: Adrien Cedillo Clinical Impression: Atrial fibrillation with RVR Coding Level of Care Code ED Grinder Dresser for Germán Howard
[2024-03-25 22:18] LABS: Basophils # 0.1 10^3/uL (0.0-0.1); Basophils % 0.8 %; Eosinophils # 0.2 10^3/uL (0.0-0.8); Eosinophils % 2.8 %; Hematocrit 39.1 % (36-47); Lymphocytes # 2.3 10^3/uL (0.8-4.8); Lymphocytes % 35.4 %; Mean Corpuscular Hemoglobin 31.5 pg (27-33); Mean Corpuscular Volume 95.4 fl (85-98); Mean Platelet Volume 9.2 fL (7.4-10.4); Monocytes # 0.5 10^3/uL (0.2-0.9); Monocytes % 7.7 %; Neutrophils # 3.43 10^3/uL (1.8-7.7); Nucleated Red Blood Cells % 0 %; Platelet Count 227 10^3/cmm (157-399); Red Cell Distribution Width 12.2 % (12.1-15.1); White Blood Count 6.47 10^3/uL (3.29-11.43)
[2024-03-25] MEDS: LORazepam 2 mg/mL INJ 1 mL 0.5 MG IVP (22:25)
[2024-03-25 22:30] VITALS: BP 132/77; PULSE 79; RESP 15; O2SAT 98
[2024-03-25 22:38] LABS: Troponin(5th) Baseline 13 ng/L (0-10)
[2024-03-25 22:40] LABS: Alanine Aminotransferase 34 U/L (0-33); Albumin Level 4.2 g/dL (3.5-5.2); Alkaline Phosphatase 100 U/L (35-105); Anion Gap 15.7 (5-19); Aspartate Amino Transferase 20 U/L (0-32); Blood Urea Nitrogen 17 mg/dL (8-23); Calcium 9.2 mg/dL (8.5-10.5); Carbon Dioxide 25 mmol/L (22-29); Chloride 105 mmol/L (98-107); Creatinine Clr Calc Pharmacy 54.9942; Glomerular Filtration Rate 55.3 mL/min (90-130); Glucose 76 mg/dL (65-115); Lipase 33 U/L (13-60); Osmolality Calculated 294 mOsm/kg (285-295); Potassium 3.7 mmol/L (3.5-5.1); Sodium 142 mmol/L (136-145); Total Bilirubin 0.3 mg/dL (0.15-1.2); Total Protein 6.2 g/dL (6.6-8.7)
[2024-03-25 23:29] VITALS: BP 105/68; PULSE 90; RESP 18; O2SAT 97
[2024-03-25 23:44] LABS: Charge for UA Resulting for Rev
--- NOTE | 2024-03-25 23:52 | P.HP_ITS ---
Providers/Chief Complaint 2 Primary Care Provider: Adrien Platt MD Chief Complaint: afib issues History of Present Illness Glory Thomas is a 68 year old female with a past medical history significant for atrial fibrillation, heart failure with preserved ejection fraction, hypertension, H. pylori gastritis, anemia, hypertension, and multiple other comorbidities who presents emergency department with palpitations and left-sided chest pains. Patient reports symptoms for the past several days. She reports on exertion makes her heart rate high and worsens her symptoms. Rest improves her symptoms. Patient denies fevers, chills, nausea or emesis. She has a known history of atrial fibrillation for which she is currently on metoprolol tartrate 50 mg twice daily and apixaban for stroke prophylaxis. She had recently been on amiodarone which was discontinued due to concern for liver dysfunction. Of note, she was evaluated in the emergency department on 03/23 for same complaints. She was reportedly treated with Cardizem and discharged back home. She states after the medication wore off her symptoms returned at home. Symptoms have continued to worsen since that time prompting her to be reevaluated today. In the emergency department, ED provider reports minimal exertion called significant RVR with heart rate in the 160s. Review of Systems 2 Narrative: A complete review of systems was obtained and is negative except as stated in HPI. Medications/Allergies Home Medications Medication Instructions Recorded Confirmed Last Taken Type cetirizine 10 mg tablet (All Day 10 mg PO DAILY PRN Allergy Symptoms 05/18/22 03/23/24 02/25/23 History Allergy (cetirizine)) nitroglycerin 0.4 mg sublingual 0.4 mg sublingual Q5M PRN chest 05/18/22 03/23/24 Unknown Rx tablet pain 30 days #30 tabs ferrous sulfate 325 mg (65 mg 325 mg PO BEDTIME 02/25/23 03/23/24 03/22/24 History iron) tablet hpziyeb-awkkrkvftbzmu-xkcnkhsg 250 2 tab PO Q6H PRN Migraine Headache 05/11/23 03/23/24 Unknown History mg-250 mg-65 mg tablet (Excedrin Migraine) amlodipine 5 mg tablet 5 mg PO DAILY #90 tabs 02/13/24 03/23/24 03/23/24 Rx furosemide 20 mg tablet 20 mg PO QAM #90 tabs 02/13/24 03/23/24 03/22/24 Rx omeprazole 20 mg capsule,delayed 20 mg PO DAILY #90 caps 02/17/24 03/23/24 03/23/24 Rx release metoprolol tartrate 50 mg tablet 50 mg PO BID #180 tabs 02/19/24 03/23/24 03/23/24 Rx thyroid (pork) 90 mg tablet 90 mg PO BEDTIME #30 tabs 03/08/24 03/23/24 03/23/24 Rx ([place] Thyroid) apixaban 5 mg tablet (Eliquis) 5 mg PO BID 03/23/24 03/23/24 03/23/24 History losartan 100 mg tablet 100 mg PO DAILY 03/23/24 03/23/24 03/23/24 History potassium chloride 10 mEq 10 meq PO DAILY 03/23/24 03/23/24 03/23/24 History capsule,extended release Allergies Allergy/AdvReac Type Severity Reaction Status Date / Time No Known Allergies Allergy Verified 03/25/24 21:43 PFSH Acute 2 PFSH: Medical History Hyperthyroidism Benign essential hypertension with target blood pressure below 140/90 Human adenovirus infection Hypertension Atrial fibrillation Surgical History History of total right knee replacement History of carpal tunnel repair Family History Father CAD (coronary artery disease), Onset Age: 49 [place] Mother Cancer Denies family history of Diabetes Clotting disorder Dementia Chronic kidney disease (CKD) Suicide Anesthesia complication Bleeding disorder Lung disease Stroke Social History Smoking and tobacco/nicotine status: never used tobacco/nicotine Substance/Drug Use: never Vitals/I&O/Wt Last Vital Signs Temp 97.6 F 03/25/24 21:40 Pulse 90 03/25/24 23:29 Resp 18 03/25/24 23:29 BP 105/68 03/25/24 23:29 Pulse Ox 97 03/25/24 23:29 O2 Del Method Room Air 03/25/24 23:29 Weight last 48 hrs Weight 67.132 kg Physical Exam 2 Narrative: General: Patient is awake and alert. Head: Normocephalic. Atraumatic. EOM intact. Neck: No JVD. Cardiovascular: Regular rate. Irregularly irregular rhythm. No gallops. No murmurs. 2+ pitting edema in bilateral lower extremities. Lungs: Clear to auscultation, no use of accessory muscles, no crackles or wheezes. Skin: No jaundice. No rashes. Abdomen: Normal bowel sounds, abdomen soft and nontender. Genito Urinary: Genital exam not performed since complaints not related. Rectal: Rectal exam not performed since no symptoms indicated blood loss. Extremities: No cyanosis or clubbing. Musculoskeletal: No swollen or erythematous joints. Neurological: Moves all 4 extremities. No myoclonus. Data 03/25/24 22:14 03/25/24 22:14 A&P Assessment and plan (1) Atrial fibrillation with RVR: Paroxysmal atrial fibrillation with rapid ventricular rate Continue apixaban for stroke prophylaxis Patient started on Cardizem drip by ED, will continue for now Continue home metoprolol 50 mg twice daily Continuous telemetry monitoring Check thyroid function Monitor electrolytes (2) Chest pain: Chest pain likely secondary to palpitations No acute ischemic changes on EKG Trend troponins Telemetry monitoring Nitro as needed (3) Diastolic CHF: Chronic heart failure preserved ejection fraction Patient has 2+ pitting edema bilateral lower extremities which she reported is baseline Continue home Lasix Continue home beta-naomy Strict I's and O's Daily weights (4) Transaminitis: Patient reports attributed to amiodarone Avoid hepatotoxins (5) Gastritis: Continue PPI Avoid NSAIDs Plan DVT prophylaxis: Apixaban CODE STATUS: Full code Attestations 2 Medical Necessity Statement*: Patient's presents with chest pain and palpitations, found to have atrial fibrillation with rapid ventricular rate with expected hospitalization not to cross 2 midnights for titration of cardiac arrhythmia medications. Coding Level of Care Code Acute Code for [facility] Diagnoses Atrial fibrillation with RVR I48.91 Chest pain R07.9 Diastolic CHF I50.30 Transaminitis R74.01 Gastritis K29.70
[2024-03-25 23:54] LABS: Bacteria Urine None Seen /hpf; RBC Urine 0-2 /hpf (0-2); Squamous Epithelial Cell Urine 0-5 /hpf (0-5); WBC Urine 0-5 /hpf (0-5)
--- NOTE | 2024-03-25 23:56 | ECG_ITS ---
[facility] Test Date: 2024-03-26 Pat Name: Glory Thomas Department: Room: ICU03 Gender: Female Health Information Manager: : 1955 Requested By: Jose Nash Order Number: [id number] Jay MD: Sandeep Andres M.D. Measurements Intervals [place] Rate: 91 P: 0 DE: 0 QRS: 47 QRSD: 86 T: 46 QT: 374 QTc: 460 Interpretive Statements ATRIAL FIBRILLATION Compared to ECG 03/25/2024 22:35:21 No significant changes Electronically Signed On 03-26-2024 12:08:54 CDT by Sandeep Andres M.D. [id number]
[2024-03-26] VITALS (11 sets, daily range): BP systolic 91–127; BP diastolic 61–103; PULSE 75–110; RESP 13–19; TEMP 36.4–36.8; O2SAT 95–97
[2024-03-26 00:07] LABS: Bilirubin Urine Negative (Negative); Blood Urine Negative (Negative); Glucose Urine UA Negative (Normal); Ketones Urine Negative (Negative); Leukocyte Esterase Urine Negative (Negative); Nitrate Urine Negative (Negative); Protein Urine Negative (Negative); Specific Gravity, Urine 1.007 (1.005-1.030); Urine Appearance Clear (CLEAR); Urine Color Yellow (Yellow); Urobilinogen Urine 0.2 mg/dL (Negative)
[2024-03-26 00:19] LABS: Troponin 5 2HR 10.44 ng/L (0-10)
[2024-03-26 00:22] LABS: Troponin 5 2HR Delta -2.56 ABS# (0-10)
[2024-03-26] MEDS: dilTIAZem 100 MG in sodium chloride 0.9% (add-van) 100 ML IV (00:58)
[2024-03-26 00:59] LABS: Thyroid Stimulating Hormone 3.81 uIU/mL (0.27-4.20)
[2024-03-26] MEDS: dilTIAZem 30 mg Tablet PO ×2 (03:09→08:26)
--- NOTE | 2024-03-26 04:08 | ECG_ITS ---
[facility] Test Date: 2024-03-26 Pat Name: Glory Thomas Department: Room: ICU03 Gender: Female Control Chemist: : 1955 Requested By: Jose Nash Order Number: [id number] Thompson MD: Sandeep Andres M.D. Measurements Intervals [place] Rate: 100 P: 0 CO: 0 QRS: 64 QRSD: 90 T: 65 QT: 360 QTc: 465 Interpretive Statements ATRIAL FIBRILLATION WITH RAPID VENTRICULAR RESPONSE MINIMAL ST DEPRESSION [0.025+ mV ST DEPRESSION] Compared to ECG 03/26/2024 01:00:59 ST (T wave) deviation now present Electronically Signed On 03-26-2024 12:08:12 CDT by Sandeep Andres M.D. [id number]
[2024-03-26 04:45] LABS: Troponin 5 6HR 11.82 ng/L (0-10); Troponin 5 6HR Delta -1.18 ng/L (0-12)
[2024-03-26] MEDS: FUROsemide 20 mg Tablet PO (05:46)
[2024-03-26] MEDS: pantoprazole DR 40 mg Tablet PO (08:25)
[2024-03-26] MEDS: potassium chloride ER 10 mEq Tablet PO (08:25)
[2024-03-26] MEDS: metoprolol tartrate 50 mg Tablet PO ×2 (08:26→08:57)
[2024-03-26] MEDS: apixaban 5 mg Tablet PO ×2 (08:26→17:46)
[2024-03-26] MEDS: dilTIAZem 30 mg Tablet 60 MG PO (10:48)
--- NOTE | 2024-03-26 11:21 | PM.PN ---
Subjective Subjective: Eating breakfast no overnight events Cardizem drip turned off Patient not experiencing chest pain Vitals/I&O/Wt Last Vital Signs Temp 97.7 F 03/26/24 04:15 Pulse 90 03/26/24 06:00 Resp 13 03/26/24 04:15 BP 125/103 03/26/24 08:12 Pulse Ox 97 03/26/24 04:15 O2 Del Method Room Air 03/26/24 04:15 03/25/24 03/26/24 03/26/24 22:59 06:59 14:59 Intake Total 681 / 681 600 / 600 Output Total 1200 / 1200 Balance -519 / -519 600 / 600 Weight last 48 hrs Weight 67.495 kg Weight 67.495 kg Weight 67.132 kg Physical Exam Narrative: Eating breakfast Sitting at the bedside Lungs are clear No active chest pain S1, S2 variable heart rate fluctuate 95-1 20 Abdomen soft Euvolemic Pleasant cooperative GCS 15 Data 03/25/24 22:14 03/25/24 22:14 A&P Assessment and plan (1) Atrial fibrillation: (2) Palpitations: (3) Atrial fibrillation with RVR: Plan A-fib RVR Increase the dose of Cardizem to 60 mg every 6 hours added metoprolol at higher dose 100 mg twice a day Continue Eliquis No active chest pain Can transfer out of ICU Keep potassium above 4 magnesium above 2 Will give 1 g magnesium along p.o. potassium Patient cannot take amiodarone related to liver ems abnormality in the past related to amiodarone use Continue levothyroxine Plan to discharge her by tomorrow if her heart rate improves I have encouraged patient to ambulate as well to see if heart rate gets worse on ambulation Straightedge Man is at [facility] Continue cardiac diet Hypertension: Added losartan which is her home regimen monitor closely, we might have to tweak her antihypertensive regimen at higher dosages of metoprolol and Cardizem, monitor closely Attestations Medical Necessity Statement*: Continue medical management Diagnoses Atrial fibrillation I48.91 Palpitations R00.2 Atrial fibrillation with RVR I48.91
[2024-03-26] MEDS: potassium chloride ER 20 mEq Tablet PO (12:05)
[2024-03-26] MEDS: magnesium sulfate premix 1 GM/100 ML PIGGYBACK IV (12:13)
[2024-03-26] MEDS: metoprolol tartrate 50 mg Tablet 100 MG PO (17:46)
[2024-03-26] MEDS: thyroid 60 mg Tablet 90 MG PO (20:38)
[2024-03-27] VITALS (7 sets, daily range): BP systolic 113–159; BP diastolic 71–86; PULSE 72–106; RESP 16–20; TEMP 36.6–36.9; O2SAT 95–97
[2024-03-27 05:31] LABS: Alanine Aminotransferase 32 U/L (0-33); Albumin Level 4.1 g/dL (3.5-5.2); Alkaline Phosphatase 107 U/L (35-105); Anion Gap 17.8 (5-19); Aspartate Amino Transferase 18 U/L (0-32); Blood Urea Nitrogen 22 mg/dL (8-23); Calcium 9.2 mg/dL (8.5-10.5); Carbon Dioxide 23 mmol/L (22-29); Chloride 102 mmol/L (98-107); Creatinine Clr Calc Pharmacy 61.1047; Glomerular Filtration Rate 62.5 mL/min (90-130); Glucose 105 mg/dL (65-115); Magnesium 2.4 mg/dL (1.7-2.3); Osmolality Calculated 290 mOsm/kg (285-295); Phosphorus 3.9 mg/dL (2.5-4.5); Potassium 4.8 mmol/L (3.5-5.1); Sodium 138 mmol/L (136-145); Total Bilirubin 0.3 mg/dL (0.15-1.2); Total Protein 6.1 g/dL (6.6-8.7)
--- NOTE | 2024-03-27 06:50 | PC.NURSE ---
Addendum entered by Maria De Jesus Carmichael RN 03/27/24 06:55: Oral Cardizem that was on hold has now been resumed. Original Note: Dr. Iyer notified of the following: Patient's heart rate has ranged anywhere from 70-130 throughout the night. It goes up more when she ambulates to the bathroom. Currently she is resting in bed and it is ranging 110-120.
[2024-03-27] MEDS: dilTIAZem 30 mg Tablet 60 MG PO (07:36)
[2024-03-27] MEDS: metoprolol tartrate 50 mg Tablet 100 MG PO ×2 (07:58→09:31)
[2024-03-27] MEDS: dilTIAZem 5 mg/mL SDV 5 mL IVP (08:33)
--- NOTE | 2024-03-27 08:55 | PM.PN ---
Subjective Subjective: Patient went into A-fib RVR again heart rate in the 130s She was given p.o. Cardizem along Cardizem IV 5 mg Continue metoprolol 100 mg Hemodynamically stable No active chest pain or palpitations Patient does not want to use amiodarone because she had liver enzyme abnormality in the past Vitals/I&O/Wt Last Vital Signs Temp 97.9 F 03/27/24 07:37 Pulse 78 03/27/24 07:37 Resp 18 03/27/24 07:37 BP 130/76 03/27/24 07:37 Pulse Ox 95 03/27/24 07:37 O2 Del Method Room Air 03/27/24 07:37 03/26/24 03/27/24 03/27/24 22:59 06:59 14:59 Intake Total 100 / 800 480 / 480 Balance 100 / 800 480 / 480 Weight last 48 hrs Weight 67.132 kg Weight 67.495 kg Weight 67.495 kg Weight 67.132 kg Physical Exam Narrative: Awake and alert Heart rate improved after Cardizem to 83 A-fib without RVR No active chest pain or palpitations GCS 15 nonfocal neuroexam euvolemic On room air Data 03/25/24 22:14 03/27/24 04:35 A&P Assessment and plan (1) Atrial fibrillation with RVR: Plan A-fib RVR Currently on optimal dose of metoprolol, Cardizem added today she also received Cardizem 5 mg IV push this morning Heart rate currently in 80s No active chest pain or palpitations Magnesium above 2 Potassium 4.8 Patient is stating that she was asked to go to [place] for ablation as well, 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
--- NOTE | 2024-03-27 09:18 | PC.CHAP ---
Pastoral Care Encounter/Spiritual Assessment Type of Contact [] Declined dialysis clinical manager visit [] Patient/Family/Request visit [] Outpatient visit [] Follow-up visit [] Physician referral [] Code/Alert [x] Routine visit [] Staff referral [] Actively dying [] Patient sleeping [] Family support [] [] Out of room [] Palliative care [] [] Receiving care in room [] Pre-surgical visit [] Trauma [] Long length of stay [] ICU visit [] Other: Relational/Emotional Strength [x] Patient feels connected with others/family/visitors/staff [] Distress [] Loneliness/isolation [] Abandonment Spirituality of Patient [x] Person of [place] [] Attends Church of their [place] [x] Believes in Prayer [] Reads Bible or Yarsani materials [] There are Spiritual issues to be addressed Bank Boss Interventions [x] Prayer [x] Active listening [] Non-anxious presence [x] Spiritual/emotional support [] Crisis/trauma care [] Spiritual counseling [] Bereavement support [] Provided bereavement packet [] Provided Bible/devotional materials [] Provided toy/stuffed animal, coloring book to patient or family member [] Provided Communion [] Anointing/[place] [] Salvation [x] Completed spiritual assessment [] Other: Impact on Illness or Injury [] Angry [] Fearful [] Anxious [] Often cries [] Exhaustion [] Unable to work [] Unable to attend synagogue [] Unable to walk/stand [] Unable to read [] Unable to drive [] Unable to eat/drink [] Unable to sleep [] Unable to be with family [] Patient intubated [] Other: Summary Time spent with patient 5 min
--- NOTE | 2024-03-27 09:26 | PC.NURSE ---
afib rvr on arrival to shift. hr 130-150. notified dr. cruz. 100mg metoprolol given, cardizem 5mg IVP given per orders. tolerates well. Afib with hr of [address] cruz states that it is ok to administer 9AM dose of metoprolol. 9AM cardizem rescheduled for 6 hours p last administration.
[2024-03-27] MEDS: pantoprazole DR 40 mg Tablet PO (09:31)
[2024-03-27] MEDS: losartan 50 mg Tablet 100 MG PO (09:31)
[2024-03-27] MEDS: apixaban 5 mg Tablet PO (09:31)
--- NOTE | 2024-03-27 09:47 | ECG_ITS ---
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 Measurements Intervals [place] Rate: 62 P: 0 UT: 0 QRS: 51 QRSD: 88 T: 61 QT: 387 QTc: 396 Interpretive Statements ATRIAL FIBRILLATION ABNORMAL RHYTHM ECG Compared to ECG 03/26/2024 04:08:49 ST (T wave) deviation no longer present Electronically Signed On 03-27-2024 23:29:26 CDT by Murtaza Gar M.D. [id number]
--- NOTE | 2024-03-27 09:59 | PC.NURSE ---
Sinus pauses noted on tele. Dr. Iyer aware. Evgeny mcclelland. Stat EKG ordered.
--- NOTE | 2024-03-27 10:53 | PM.TDS ---
Transfer Summary Providers Date of Admission: 03/26/24 00:03 Date of Discharge/Transfer: 03/27/24 Attending Provider at Admission: Adrien Cedillo MD Attending Provider at Transfer: Jason Iyer MD Primary Care Provider: Adrien Platt MD Transfer Plans: Anticipated date of transfer: 03/27/24. Diagnoses at Discharge Discharge Diagnosis (1) Atrial fibrillation with RVR: Status: Acute Reason for Visit Reason for Visit afib issues Hospital Course Hospital Course 68-year-old female who was admitted to our hospital for A-fib RVR chest pain and palpitations, with initiation of Cardizem drip her palpitation improved and chest pain resolved. We were able to wean her off Cardizem drip and start Cardizem 30 mg p.o. every 6 hours along high dose of metoprolol 100 mg twice a day, patient started showing sinus pauses with heart rate dipping down to low 40s without hemodynamic instability chest pain confusion or shortness of breath. Cardiology was consulted who recommended pacemaker placement, patient is stating that she has cardiology service well-established at [facility] and does not feel comfortable with pacemaker placement at our hospital. I have reached out to [facility] spoke with the physician to get her accepted. During this hospitalization patient remained on metoprolol 100 mg twice a day we discontinued Cardizem because of her sinus pauses. Patient is not a good candidate for amiodarone because she developed abnormal liver enzymes with amiodarone use last time. She was kept on her apixaban 5 mg twice a day regimen. Potassium is above 4, magnesium 2.4. She is hemodynamically stable and chest pain-free. TSH 3.8 Physical Exam Narrative: Currently heart rate is in 60s with sinus pauses on telemetry Hemodynamically stable currently on room air No active chest pain Pleasant and cooperative Euvolemic GCS 15 TS Data Studies Completed and Pending Pending at discharge Category Date Time Status Basic Metabolic Panel AM LABS Lab 03/28/24 04:00 Ordered Completed Studies During Hospitalization Category Date Time Status XR chest 1V portable [id number] Stat Exams 03/25/24 21:56 Completed Laboratory Last Values WBC 6.47 10^3/uL (3.29-11.43) 03/25/24 22:14 RBC 4.10 10^6/uL (3.85-5.65) 03/25/24 22:14 Hgb 12.90 g/dL (11.27-16.99) 03/25/24 22:14 Hct 39.1 % (36-47) 03/25/24 22:14 MCV 95.4 fl (85-98) 03/25/24 22:14 MCH 31.5 pg (27-33) 03/25/24 22:14 MCHC 33.0 g/dL (30-55) 03/25/24 22:14 RDW 12.2 % (12.1-15.1) 03/25/24 22:14 Plt Count 227 10^3/cmm (157-399) 03/25/24 22:14 MPV 9.2 fL (7.4-10.4) 03/25/24 22:14 Neut % (Auto) 53.0 % 03/25/24 22:14 Lymph % (Auto) 35.4 % 03/25/24 22:14 Day % (Auto) 7.7 % 03/25/24 22:14 Eos % (Auto) 2.8 % 03/25/24 22:14 Baso % (Auto) 0.8 % 03/25/24 22:14 Neut # (Auto) 3.43 10^3/uL (1.8-7.7) 03/25/24 22:14 Lymph # (Auto) 2.3 10^3/uL (0.8-4.8) 03/25/24 22:14 Day # (Auto) 0.5 10^3/uL (0.2-0.9) 03/25/24 22:14 Eos # (Auto) 0.2 10^3/uL (0.0-0.8) 03/25/24 22:14 Baso # (Auto) 0.1 10^3/uL (0.0-0.1) 03/25/24 22:14 Nucleated RBC % (auto) 0 % 03/25/24 22:14 Nucleated RBCs # 0.0 /100WBC 03/25/24 22:14 Sodium 138 mmol/L (136-145) 03/27/24 04:35 Potassium 4.8 mmol/L (3.5-5.1) 03/27/24 04:35 Chloride 102 mmol/L (98-107) 03/27/24 04:35 Carbon Dioxide 23 mmol/L (22-29) 03/27/24 04:35 Anion Gap 17.8 (5-19) 03/27/24 04:35 BUN 22 mg/dL (8-23) 03/27/24 04:35 Creatinine 0.9 mg/dL (0.5-0.9) 03/27/24 04:35 GFR Calculation 62.5 mL/min (90-130) L 03/27/24 04:35 Glucose 105 mg/dL (65-115) 03/27/24 04:35 Calculated Osmolality 290 mOsm/kg (285-295) 03/27/24 04:35 Calcium 9.2 mg/dL (8.5-10.5) 03/27/24 04:35 Phosphorus 3.9 mg/dL (2.5-4.5) 03/27/24 04:35 Magnesium 2.4 mg/dL (1.7-2.3) H 03/27/24 04:35 Total Bilirubin 0.3 mg/dL (0.15-1.2) 03/27/24 04:35 AST 18 U/L (0-32) 03/27/24 04:35 ALT 32 U/L (0-33) 03/27/24 04:35 Alkaline Phosphatase 107 U/L (35-105) H 03/27/24 04:35 Troponin T Baseline 13 ng/L (0-10) H 03/25/24 22:14 Troponin T 120 Minute 10.44 ng/L (0-10) H 03/25/24 23:58 Delta Troponin T -2.56 ABS# (0-10) L 03/25/24 23:58 Troponin T Hi Sens 6Hr 11.82 ng/L (0-10) H 03/26/24 03:58 Troponin T Hi Sens 6Hr Delta -1.18 ng/L (0-12) L 03/26/24 03:58 Total Protein 6.1 g/dL (6.6-8.7) L 03/27/24 04:35 Albumin 4.1 g/dL (3.5-5.2) 03/27/24 04:35 Globulin 2.0 g/dL (1.3-4.6) 03/27/24 04:35 Lipase 33 U/L (13-60) 03/25/24 22:14 TSH 3.81 uIU/mL (0.27-4.20) 03/25/24 23:58 Urine Color Yellow (Yellow) 03/25/24 22:42 Urine Appearance Clear (CLEAR) 03/25/24 22:42 Urine pH 5.0 (5-7) 03/25/24 22:42 Ur Specific [place] 1.007 (1.005-1.030) 03/25/24 22:42 Urine Protein Negative (Negative) 03/25/24 22:42 Urine Glucose (UA) Negative (Normal) 03/25/24 22:42 Urine Ketones Negative (Negative) 03/25/24 22:42 Urine Blood Negative (Negative) 03/25/24 22:42 Urine Nitrate Negative (Negative) 03/25/24 22:42 Urine Bilirubin Negative (Negative) 03/25/24 22:42 Urine Urobilinogen 0.2 mg/dL (Negative) 03/25/24 22:42 Ur Leukocyte Esterase Negative (Negative) 03/25/24 22:42 Urine RBC 0-2 /hpf (0-2) 03/25/24 22:42 Urine WBC 0-5 /hpf (0-5) 03/25/24 22:42 Ur Squamous Epith Cells 0-5 /hpf (0-5) 03/25/24 22:42 Amorphous Sediment Not Reportable 03/25/24 22:42 Urine Bacteria None seen /hpf (NONE) 03/25/24 22:42 Hyaline Casts 0.40 /lpf 03/25/24 22:42 Radiology Impressions Chest X-Ray 03/25/24 21:56 IMPRESSION: No acute findings. Recent Clincial Data Last Vital Signs Temp 97.9 F 03/27/24 07:37 Pulse 78 03/27/24 07:37 Resp 18 03/27/24 07:37 BP 130/76 03/27/24 07:37 Pulse Ox 95 03/27/24 07:37 O2 Del Method Room Air 03/27/24 07:37 Vital Signs Temp Pulse Resp BP Pulse Ox O2 Del Method 03/27/24 07:37 97.9 F 78 18 130/76 95 Room Air 03/27/24 07:00 113/71 03/27/24 05:13 106 H 03/27/24 04:00 98.3 F 72 16 159/86 97 Room Air 03/27/24 00:00 98.3 F 80 16 120/79 95 Room Air Intake & Output/Weight 03/25/24 03/26/24 03/27/24 03/28/24 06:59 06:59 06:59 06:59 Intake Total 681 / 681 800 / 800 480 / 480 Output Total 1200 / 1200 Balance -519 / -519 800 / 800 480 / 480 Weight 67.495 kg 67.132 kg Vitals Last Vital Signs Temp 97.9 F 03/27/24 07:37 Pulse 78 03/27/24 07:37 Resp 18 03/27/24 07:37 BP 130/76 03/27/24 07:37 Pulse Ox 95 03/27/24 07:37 O2 Del Method Room Air 03/27/24 07:37 TS Medications Medications Acetaminophen (Acetaminophen 325 Mg Tablet) 650 mg PO Q6H PRN PRN Reason: Mild/Mod Pain Or Temp >/= 101 Apixaban (Apixaban 5 Mg Tablet) 5 mg PO BID [facility] Last Admin: 03/27/24 09:31 Dose: 5 mg Cetirizine HCl (Cetirizine 10 Mg Tablet) 10 mg PO DAILY PRN PRN Reason: Allergy Symptoms Losartan Potassium (Losartan 50 Mg Tablet) 100 mg PO DAILY [facility] Last Admin: 03/27/24 09:31 Dose: 100 mg Metoprolol Tartrate (Metoprolol Tartrate 50 Mg Tablet) 100 mg PO BID [facility] Last Admin: 03/27/24 09:31 Dose: 100 mg Nitroglycerin (Nitroglycerin 0.4 Mg Sublingual Tablet) 0.4 mg SUBLINGUAL Q5M PRN PRN Reason: chest pain Ondansetron HCl (Ondansetron 2 Mg/Ml Sdv 2 Ml) 4 mg IVP Q8H PRN PRN Reason: vomiting, or N/V if npo Ondansetron HCl (Ondansetron 4 Mg Tablet) 4 mg PO Q8H PRN PRN Reason: NAUSEA Pantoprazole Sodium (Pantoprazole Dr 40 Mg Tablet) 40 mg PO DAILY [facility] Last Admin: 03/27/24 09:31 Dose: 40 mg Thyroid (Thyroid 60 Mg Tablet) 90 mg PO BEDTIME [facility] Last Admin: 03/26/24 20:38 Dose: 90 mg Discontinued Medications Diltiazem HCl (Diltiazem 30 Mg Tablet) 30 mg PO Q6H [facility] Last Admin: 03/26/24 08:26 Dose: 30 mg Diltiazem HCl (Diltiazem 30 Mg Tablet) 60 mg PO Q6H [facility] Last Admin: 03/27/24 07:36 Dose: 60 mg Diltiazem HCl (Diltiazem 5 Mg/Ml Sdv 5 Ml) 5 mg IVP ONCE ONE Stop: 03/27/24 08:23 Last Admin: 03/27/24 08:33 Dose: 5 mg Diltiazem HCl (Diltiazem 5 Mg/Ml Sdv 5 Ml) 5 mg IVP ONCE ONE Stop: 03/27/24 08:31 Last Admin: 03/27/24 09:23 Dose: Not Given Diltiazem HCl (Diltiazem 30 Mg Tablet) 60 mg PO Q6H [facility] Furosemide (Furosemide 20 Mg Tablet) 20 mg PO QAM [facility] Last Admin: 03/26/24 05:46 Dose: 20 mg Diltiazem HCl 100 mg/ Sodium (Chloride) 100 mls @ 0 mls/hr IV .Q0M ADONAY; Protocol Last Titration: 03/26/24 15:49 Dose: Infused Magnesium Sulfate/Dextrose (Magnesium Sulfate Premix) 1 gm in 100 mls @ 200 mls/hr IV ONCE ONE Stop: 03/26/24 11:54 Last Infusion: 03/26/24 12:43 Dose: Infused Lorazepam (Lorazepam 2 Mg/Ml Inj 1 Ml) 0.5 mg IVP ONCE ONE Stop: 03/25/24 22:11 Last Admin: 03/25/24 22:25 Dose: 0.5 mg Metoprolol Tartrate (Metoprolol Tartrate 50 Mg Tablet) 50 mg PO BID [facility] Last Admin: 03/26/24 08:26 Dose: 50 mg Metoprolol Tartrate (Metoprolol Tartrate 50 Mg Tablet) 50 mg PO ONCE ONE Stop: 03/26/24 08:48 Last Admin: 03/26/24 08:57 Dose: 50 mg Metoprolol Tartrate (Metoprolol Tartrate 50 Mg Tablet) 100 mg PO ONCE ONE Stop: 03/27/24 07:35 Last Admin: 03/27/24 07:58 Dose: 100 mg Potassium Chloride (Potassium Chloride Er 10 Meq Tablet) 10 meq PO DAILY [facility] Last Admin: 03/26/24 08:25 Dose: 10 meq Potassium Chloride (Potassium Chloride Er 20 Meq Tablet) 20 meq PO ONCE ONE Stop: 03/26/24 11:26 Last Admin: 03/26/24 12:05 Dose: 20 meq Allergies No Known Allergies Allergy (Verified 03/25/24 21:43) Home Medications cetirizine 10 mg tablet (All Day Allergy (cetirizine)) 10 mg PO DAILY PRN Allergy Symptoms 05/18/22 [History Confirmed 03/26/24] nitroglycerin 0.4 mg sublingual tablet 0.4 mg sublingual Q5M PRN chest pain 30 days #30 tabs 05/18/22 [Rx Confirmed 03/26/24] ferrous sulfate 325 mg (65 mg iron) tablet 325 mg PO BEDTIME 02/25/23 [History Confirmed 03/26/24] hfzgjln-ffftoqnhnnbwb-zlfiavjb 250 mg-250 mg-65 mg tablet (Excedrin Migraine) 2 tab PO Q6H PRN Migraine Headache 05/11/23 [History Confirmed 03/26/24] amlodipine 5 mg tablet 5 mg PO DAILY #90 tabs 02/13/24 [Rx Confirmed 03/26/24] furosemide 20 mg tablet 20 mg PO QAM #90 tabs 02/13/24 [Rx Confirmed 03/26/24] omeprazole 20 mg capsule,delayed release 20 mg PO DAILY #90 caps 02/17/24 [Rx Confirmed 03/26/24] metoprolol tartrate 50 mg tablet 50 mg PO BID #180 tabs 02/19/24 [Rx Confirmed 03/26/24] thyroid (pork) 90 mg tablet ([place] Thyroid) 90 mg PO BEDTIME #30 tabs 03/08/24 [Rx Confirmed 03/26/24] apixaban 5 mg tablet (Eliquis) 5 mg PO BID 03/23/24 [History Confirmed 03/26/24] losartan 100 mg tablet 100 mg PO DAILY 03/23/24 [History Confirmed 03/26/24] potassium chloride 10 mEq capsule,extended release 10 meq PO DAILY 03/23/24 [History Confirmed 03/26/24] Discharge Plan Discharge Patient Disposition: Xfer Other Condition: Stable Prescriptions: No Action cetirizine [All Day Allergy (cetirizine)] 10 mg tablet 10 mg PO DAILY PRN (Reason: Allergy Symptoms) nitroglycerin 0.4 mg tablet, sublingual 0.4 mg sublingual Q5M PRN (Reason: chest pain) 30 Days Qty: 30 3RF Rx Instructions: until response; do not exceed 3 doses per episode omeprazole 20 mg capsule,delayed release(DR/EC) 20 mg PO DAILY Qty: 90 3RF metoprolol tartrate 50 mg tablet 50 mg PO BID Qty: 180 2RF amlodipine 5 mg tablet 5 mg PO DAILY Qty: 90 0RF furosemide 20 mg tablet 20 mg PO QAM Qty: 90 0RF [place] Thyroid 90 mg tablet 90 mg PO BEDTIME Qty: 30 0RF ferrous sulfate 325 mg (65 mg iron) Tablet 325 mg PO BEDTIME Excedrin Migraine 250-250-65 mg Tablet 2 tab PO Q6H PRN (Reason: Migraine Headache) potassium chloride 10 mEq capsule, extended release 10 meq PO DAILY losartan 100 mg tablet 100 mg PO DAILY Eliquis 5 mg tablet 5 mg PO BID Referrals: Adrien Platt MD [Primary Care Provider] - Patient Instructions: Pain Management Transfer Attestations Time Spent in Transfer Care: other Status at Transfer: Cognitive status at transfer: cognitively intact; Behavioral status at transfer: cooperative; Quality Metrics Clinical Quality Measures [ No reported AMI, CVA or VTE this stay] Coding Level of Care Code Acute Code for [facility] Diagnoses Atrial fibrillation with RVR I48.91
--- NOTE | 2024-03-27 14:26 | P.DS_ITS ---
Discharge Providers Date of Admission: 03/26/24 00:03 Date of Discharge: March 27, 2024 Attending Provider at Admission: Adrien Cedillo MD Attending Provider at Discharge: Jason Iyer MD Primary Care Provider: Adrien Platt MD Diagnoses at Discharge Discharge Diagnosis (1) Atrial fibrillation with RVR: Status: Acute Reason for Visit Reason for Visit: afib issues Hospital Course Hospital Course 68-year-old female who was admitted to our hospital for A-fib RVR chest pain and palpitations, with initiation of Cardizem drip her palpitation improved and chest pain resolved. We were able to wean her off Cardizem drip and start Cardizem 30 mg p.o. every 6 hours along high dose of metoprolol 100 mg twice a day, patient started showing sinus pauses with heart rate dipping down to low 40s without hemodynamic instability chest pain confusion or shortness of breath. Cardiology was consulted who recommended pacemaker placement, patient is stating that she has cardiology service well-established at [facility] and does not feel comfortable with pacemaker placement at our hospital. I have reached out to [facility] spoke with the physician to get her accepted. 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 I touched base with Dr Gar again who recommended metoprolol 75mg in day time and 50 mg at night time along event monitor During this hospitalization patient remained on metoprolol 100 mg twice a day , discontinued Cardizem because of her sinus pauses to avoid double av evie naomy. Patient is not a good candidate for amiodarone because she developed abnormal liver enzymes with amiodarone use last time. She was kept on her apixaban 5 mg twice a day regimen. Potassium is above 4, magnesium 2.4. She is hemodynamically stable and chest pain-free. TSH 3.8 Discharge Data Studies Completed and Pending Completed Studies During Hospitalization Category Date Time Status XR chest 1V portable [id number] Stat Exams 03/25/24 21:56 Completed Pending at discharge Category Date Time Status Basic Metabolic Panel AM LABS Lab 03/28/24 04:00 Ordered Radiology Impressions Chest X-Ray 03/25/24 21:56 IMPRESSION: No acute findings. Laboratory Results WBC 6.47 10^3/uL (3.29-11.43) 03/25/24 22:14 RBC 4.10 10^6/uL (3.85-5.65) 03/25/24 22:14 Hgb 12.90 g/dL (11.27-16.99) 03/25/24 22:14 Hct 39.1 % (36-47) 03/25/24 22:14 MCV 95.4 fl (85-98) 03/25/24 22:14 MCH 31.5 pg (27-33) 03/25/24 22:14 MCHC 33.0 g/dL (30-55) 03/25/24 22:14 RDW 12.2 % (12.1-15.1) 03/25/24 22:14 Plt Count 227 10^3/cmm (157-399) 03/25/24 22:14 MPV 9.2 fL (7.4-10.4) 03/25/24 22:14 Neut % (Auto) 53.0 % 03/25/24 22:14 Lymph % (Auto) 35.4 % 03/25/24 22:14 [place] % (Auto) 7.7 % 03/25/24 22:14 Eos % (Auto) 2.8 % 03/25/24 22:14 Baso % (Auto) 0.8 % 03/25/24 22:14 Neut # (Auto) 3.43 10^3/uL (1.8-7.7) 03/25/24 22:14 Lymph # (Auto) 2.3 10^3/uL (0.8-4.8) 03/25/24 22:14 [place] # (Auto) 0.5 10^3/uL (0.2-0.9) 03/25/24 22:14 Eos # (Auto) 0.2 10^3/uL (0.0-0.8) 03/25/24 22:14 Baso # (Auto) 0.1 10^3/uL (0.0-0.1) 03/25/24 22:14 Nucleated RBC % (auto) 0 % 03/25/24 22:14 Nucleated RBCs # 0.0 /100WBC 03/25/24 22:14 Sodium 138 mmol/L (136-145) 03/27/24 04:35 Potassium 4.8 mmol/L (3.5-5.1) 03/27/24 04:35 Chloride 102 mmol/L (98-107) 03/27/24 04:35 Carbon Dioxide 23 mmol/L (22-29) 03/27/24 04:35 Anion Gap 17.8 (5-19) 03/27/24 04:35 BUN 22 mg/dL (8-23) 03/27/24 04:35 Creatinine 0.9 mg/dL (0.5-0.9) 03/27/24 04:35 GFR Calculation 62.5 mL/min (90-130) L 03/27/24 04:35 Glucose 105 mg/dL (65-115) 03/27/24 04:35 Calculated Osmolality 290 mOsm/kg (285-295) 03/27/24 04:35 Calcium 9.2 mg/dL (8.5-10.5) 03/27/24 04:35 Phosphorus 3.9 mg/dL (2.5-4.5) 03/27/24 04:35 Magnesium 2.4 mg/dL (1.7-2.3) H 03/27/24 04:35 Total Bilirubin 0.3 mg/dL (0.15-1.2) 03/27/24 04:35 AST 18 U/L (0-32) 03/27/24 04:35 ALT 32 U/L (0-33) 03/27/24 04:35 Alkaline Phosphatase 107 U/L (35-105) H 03/27/24 04:35 Troponin T Baseline 13 ng/L (0-10) H 03/25/24 22:14 Troponin T 120 Minute 10.44 ng/L (0-10) H 03/25/24 23:58 Delta Troponin T -2.56 ABS# (0-10) L 03/25/24 23:58 Troponin T Hi Sens 6Hr 11.82 ng/L (0-10) H 03/26/24 03:58 Troponin T Hi Sens 6Hr Delta -1.18 ng/L (0-12) L 03/26/24 03:58 Total Protein 6.1 g/dL (6.6-8.7) L 03/27/24 04:35 Albumin 4.1 g/dL (3.5-5.2) 03/27/24 04:35 Globulin 2.0 g/dL (1.3-4.6) 03/27/24 04:35 Lipase 33 U/L (13-60) 03/25/24 22:14 TSH 3.81 uIU/mL (0.27-4.20) 03/25/24 23:58 Urine Color Yellow (Yellow) 03/25/24 22:42 Urine Appearance Clear (CLEAR) 03/25/24 22:42 Urine pH 5.0 (5-7) 03/25/24 22:42 Ur Specific [place] 1.007 (1.005-1.030) 03/25/24 22:42 Urine Protein Negative (Negative) 03/25/24 22:42 Urine Glucose (UA) Negative (Normal) 03/25/24 22:42 Urine Ketones Negative (Negative) 03/25/24 22:42 Urine Blood Negative (Negative) 03/25/24 22:42 Urine Nitrate Negative (Negative) 03/25/24 22:42 Urine Bilirubin Negative (Negative) 03/25/24 22:42 Urine Urobilinogen 0.2 mg/dL (Negative) 03/25/24 22:42 Ur Leukocyte Esterase Negative (Negative) 03/25/24 22:42 Urine RBC 0-2 /hpf (0-2) 03/25/24 22:42 Urine WBC 0-5 /hpf (0-5) 03/25/24 22:42 Ur Squamous Epith Cells 0-5 /hpf (0-5) 03/25/24 22:42 Amorphous Sediment Not Reportable 03/25/24 22:42 Urine Bacteria None seen /hpf (NONE) 03/25/24 22:42 Hyaline Casts 0.40 /lpf 03/25/24 22:42 Vitals Last Vital Signs Temp 98.4 F 03/27/24 12:00 Pulse 98 03/27/24 12:00 Resp 20 H 03/27/24 12:00 BP 132/77 03/27/24 12:00 Pulse Ox 95 03/27/24 12:00 O2 Del Method Room Air 03/27/24 12:00 Discharge Plan Discharge Patient Disposition: Home Condition: Stable Prescriptions: Continued cetirizine [All Day Allergy (cetirizine)] 10 mg tablet 10 mg PO DAILY PRN (Reason: Allergy Symptoms) nitroglycerin 0.4 mg tablet, sublingual 0.4 mg sublingual Q5M PRN (Reason: chest pain) 30 Days Qty: 30 3RF Rx Instructions: until response; do not exceed 3 doses per episode omeprazole 20 mg capsule,delayed release(DR/EC) 20 mg PO DAILY Qty: 90 3RF amlodipine 5 mg tablet 5 mg PO DAILY Qty: 90 0RF furosemide 20 mg tablet 20 mg PO QAM Qty: 90 0RF [place] Thyroid 90 mg tablet 90 mg PO BEDTIME Qty: 30 0RF ferrous sulfate 325 mg (65 mg iron) Tablet 325 mg PO BEDTIME Excedrin Migraine 250-250-65 mg Tablet 2 tab PO Q6H PRN (Reason: Migraine Headache) metoprolol tartrate 50 mg tablet 50 mg PO BID Qty: 180 2RF potassium chloride 10 mEq capsule, extended release 10 meq PO DAILY losartan 100 mg tablet 100 mg PO DAILY Eliquis 5 mg tablet 5 mg PO BID Discharge Orders: Discharge Order (Routine); Ordered 03/27/24 Ordered By: Jason Iyer Other Ambulatory Orders: ECG holter monitor 14 Days (Routine) Timeframe: 2 Weeks Facility: [facility] - Location: Radiology Ordered By: Jason Iyer Referrals: Adrien Platt MD [Primary Care Provider] - Discharge Diet: Cardiac Discharge Activity: Increase activity as tolerated Patient Instructions: Opioid Safety, Pain Management Activity Restrictions/Additional Instructions: Please Take metoprolol 75 mg in the morning and 50mg at night time You will need holter monitor to keep an eye on your pulse and sinus pauses Discharge Attestations Time Spent in Discharge Care*: greater than 30 min Status at Discharge: Cognitive status at discharge: cognitively intact , Behavioral status at discharge: cooperative , Quality Metrics Clinical Quality Measures [ No reported AMI, CVA or VTE this stay] Coding Level of Care Code Acute Code for [facility] Fwd Diagnoses Atrial fibrillation with RVR I48.91
== END 2024-03-27 16:08 | disposition home or self-care (01) ==
LOC: ER 23:50 → ICU 03-26 00:04 → MEDSURG 03-26 17:51
PROVIDERS: Admitting Provider Internal Medicine; Emergency Provider Nurse Practitioner Family; PCP Family Medicine; Visit Provider Internal Medicine
DX: I48.91 Unspecified atrial fibrillation (principal); Z79.01 Long term (current) use of anticoagulants; E03.9 Hypothyroidism, unspecified; I10 Essential (primary) hypertension
CPT/HCPCS: 36415; 71045; 80053; 81003; 81015; 83690; 83735; 84100; 84443; 84484; 85025; 93005; 96365; 96366; 96367; 96375; 96376; 99285; G0378; J2060; J3475; J3490

== ENCOUNTER 2024-05-28 12:20 | Outpatient (CLI) | payer OTHER, MEDICARE, SELFPAY ==
[2024-05-28 13:13] LABS: Basophils # 0.1 10^3/uL (0.0-0.1); Basophils % 1.1 %; Eosinophils # 0.1 10^3/uL (0.0-0.8); Hematocrit 40.6 % (36-47); Lymphocytes # 1.5 10^3/uL (0.8-4.8); Lymphocytes % 34.2 %; Mean Corpuscular HGB Conc 31.5 g/dL (30-55); Mean Corpuscular Hemoglobin 30.3 pg (27-33); Mean Corpuscular Volume 96.2 fl (85-98); Mean Platelet Volume 10.2 fL (7.4-10.4); Monocytes # 0.4 10^3/uL (0.2-0.9); Monocytes % 9.8 %; Neutrophils # 2.31 10^3/uL (1.8-7.7); Neutrophils % 52.4 %; Nucleated Red Blood Cells % 0 %; Platelet Count 228 10^3/cmm (157-399); Red Blood Count 4.22 10^6/uL (3.85-5.65); Red Cell Distribution Width 12.9 % (12.1-15.1); White Blood Count 4.41 10^3/uL (3.29-11.43)
[2024-05-28 13:33] LABS: Anion Gap 13.9 (5-19); Blood Urea Nitrogen 14 mg/dL (8-23); Calcium 8.9 mg/dL (8.5-10.5); Carbon Dioxide 25 mmol/L (22-29); Chloride 103 mmol/L (98-107); Glomerular Filtration Rate 83.5 mL/min (90-130); Glucose 82 mg/dL (65-115); Osmolality Calculated 286 mOsm/kg (285-295); Potassium 3.9 mmol/L (3.5-5.1); Sodium 138 mmol/L (136-145)
== END 2024-05-28 12:21 | disposition home or self-care (01) ==
LOC: LAB 12:24
PROVIDERS: PCP Family Medicine
DX: I48.19 Other persistent atrial fibrillation (principal)
CPT/HCPCS: 36415; 80048; 85025

== ENCOUNTER 2024-05-30 06:40 | Outpatient (CLI) | payer MEDICARE, OTHER, SELFPAY ==
--- NOTE | 2024-05-30 08:15 | CT_ITS ---
WS: [id number] CTA THORACIC TECHNIQUE: Contrast enhanced CTA of the thoracic aorta with coronal and sagittal reformatted images a nd maximum intensity projection (MIP) images. CLINICAL INFORMATION: PERSISTANT AFIB COMPARISON: CTA 05/11/2023 DLP: 418.[address] scans at [facility] use at least one of these dose optimization techniques: automated e xposure control; mA and/or kV adjustment per patient size (includes targeted exams where dose is matc hed to clinical indication); or iterative reconstruction. FINDINGS: Previously described pulmonary nodule in the RIGHT middle lobe laterally has resolved. Improved RIGHT pleural effusion now small in size. Ovoid LEFT lower lobe pulmonary nodule abutting the diaphragm be tter visualized today measuring 5 to 6 mm unchanged. Small esophageal hiatal hernia. Cardiomegaly. No rmal adrenal glands. Normal GE junction. Ascending thoracic aorta measures 2.8 mm in maximum dimension. Normal aortic arch. Mild aortic arch c alcification. Normal caliber descending thoracic aorta. Proximal pulmonary arteries are patent. Proxi mal subclavian arteries are patent. CT/CT angio chest [id number] IMPRESSION: 1. Previously described pulmonary nodule in the RIGHT middle lobe has resolved since 05/11/2023. 2. 5 to 6 mm pulmonary nodule LEFT lower lobe along the diaphragm is stable. A few scattered micronodules bilaterally. 3. Improved RIGHT pleural effusion now small in size. 4. Cardiomegaly. 5. No other significant changes.
[2024-05-30] MEDS: iohexol 350 mg/mL 500 mL Btl (per mL) IV (08:25)
== END 2024-05-30 06:41 | disposition home or self-care (01) ==
LOC: RAD 06:41
PROVIDERS: PCP Family Medicine; Visit Provider Nurse Practitioner Adult Health
DX: I48.19 Other persistent atrial fibrillation (principal); R91.1 Solitary pulmonary nodule; K44.9 Diaphragmatic hernia without obstruction or gangrene; I51.7 Cardiomegaly
CPT/HCPCS: 71275

== ENCOUNTER → 2024-10-03 10:00 | Outpatient (BNVA) | payer MEDICARE, OTHER, SELFPAY | PROVIDERS: PCP Family Medicine; Visit Provider Family Medicine | DX: Z00.00 Encounter for general adult medical examination without abnormal findings (principal); E03.9 Hypothyroidism, unspecified; Z51.81 Encounter for therapeutic drug level monitoring | CPT/HCPCS: 80053; 80061; 82306; 84439; 84443; 85025 ==

== ENCOUNTER 2024-10-18 12:31 | Outpatient (CLI) | payer MEDICARE, OTHER, SELFPAY ==
--- NOTE | 2024-10-18 | MM_ITS ---
WS: [id number] BILATERAL 3D TOMOSYNTHESIS DIGITAL SCREENING MAMMOGRAPHY WITH CAD CLINICAL INFORMATION: ANNUAL SCREENING HISTORY: Screening mammogram. No current complaints. COMPARISON: 2021 TECHNIQUE: Bilateral CC and MLO views. FINDINGS: Scattered fibroglandular densities bilaterally. No suspicious focal mass, asymmetry, calcifications, or architectural distortion. No evidence of malignancy. Few tiny incidental punctate calcifications. MM/MM scr tomosynthesis [id number] IMPRESSION: DENSITY: There are scattered areas of fibroglandular density. BI-RADS: 2 - Benign. FOLLOW UP: 1 Year Follow-up Recommend return to annual screening mammography.
== END 2024-10-18 12:32 | disposition home or self-care (01) ==
PROVIDERS: PCP Family Medicine; Visit Provider Family Medicine
DX: Z12.31 Encounter for screening mammogram for malignant neoplasm of breast (principal); R92.323 Mammographic fibroglandular density, bilateral breasts; R92.1 Mammographic calcification found on diagnostic imaging of breast
CPT/HCPCS: 77063; 77067

== ENCOUNTER 2025-01-02 14:37 | Outpatient (CLI) | payer OTHER, MEDICARE, SELFPAY ==
--- NOTE | 2025-01-02 14:47 | XR_ITS ---
WS: [id number] Lumbar spine, 5 views including both obliques, 01/02/2025 Clinical Data: M54.9 - Dorsalgia, unspecified Comparison: Lumbar spine, 09/11/2018 Findings: No compression fractures or subluxation is seen. There is degenerative disc narrowing at levels L3-L4, L4-L5 and L5-S1. There is osteoarthritis of all the lumbar vertebral bodies and osteoporosis. There is a dextroscoliosis. The posterior subluxation of L3 on L4 and the anterior subluxation of L5 on S1 remains stable. The oblique films show no spondylolysis. The transverse processes and SI joints are normal. XR/XR lumbar spine min 4V [id number] Impression: 1. Chronic changes of the lumbar spine which remain stable. 2. No spondylolysis on the oblique films.
== END 2025-01-02 14:38 | disposition home or self-care (01) ==
LOC: RAD 14:38
PROVIDERS: PCP Family Medicine; Visit Provider Nurse Practitioner Family
DX: M51.369 Other intervertebral disc degeneration, lumbar region without mention of lumbar back pain or lower extremity pain (principal); M51.379 Other intervertebral disc degeneration, lumbosacral region without mention of lumbar back pain or lower extremity pain; M81.0 Age-related osteoporosis without current pathological fracture; M47.896 Other spondylosis, lumbar region; M41.86 Other forms of scoliosis, lumbar region; R93.7 Abnormal findings on diagnostic imaging of other parts of musculoskeletal system
CPT/HCPCS: 72110

== ENCOUNTER 2025-03-01 06:34 | Outpatient (CLI) | payer OTHER, MEDICARE, SELFPAY ==
--- NOTE | 2025-03-01 06:45 | CTR_ITS ---
PROCEDURE INFORMATION: Exam: CT Lumbar Spine Without Contrast Exam date and time: 03/01/2025 6:55 AM Age: 69 years old Clinical indication: Low back pain; Lumbar pain with radiculopathy to left leg, x 10 years; Additional info: M54.16 - radiculopathy, lumbar region TECHNIQUE: Imaging protocol: Computed tomography of the lumbar spine without contrast. Radiation optimization: All CT scans at this facility use at least one of these dose optimization techniques: automated exposure control; mA and/or kV adjustment per patient size (includes targeted exams where dose is matched to clinical indication); or iterative reconstruction. COMPARISON: CR XR lumbar spine min 4V [id number] 01/02/2025 3:08 PM RADIATION DOSE METRICS: Total DLP (mGy-cm): 284.56 FINDINGS: Bones/joints: 9 mm anterolisthesis of L5 on S1 with chronic bilateral pars defects. Similar slight grade 1 anterolisthesis at L3-L4. [id number] degenerative disc disease at L3-L4 with moderate to advanced degenerative disc disease at L4-L5 and L5-S1. No acute fracture. Vertebral body heights are maintained. Diffuse osseous demineralization. At least moderate spinal canal stenosis at L3-L4, L4-L5, and L5-S1 related to disc bulge and ligamentum flavum thickening. Vasculature: Atherosclerotic aortoiliac calcifications. Soft tissues: Unremarkable. CT/CT lumbar spine wo con* [id number] IMPRESSION: 1. No acute findings. 2. Multilevel lumbar spondylosis, most pronounced at L4-L5 and L5-S1 including at least moderate spinal canal stenosis. 3. Grade 1-2 anterolisthesis at L5-S1 with chronic bilateral pars defects.
== END 2025-03-01 06:35 | disposition home or self-care (01) ==
LOC: RAD 06:34
PROVIDERS: PCP Family Medicine; Visit Provider Nurse Practitioner Family
DX: M47.26 Other spondylosis with radiculopathy, lumbar region (principal); M47.817 Spondylosis without myelopathy or radiculopathy, lumbosacral region; M48.061 Spinal stenosis, lumbar region without neurogenic claudication; M48.07 Spinal stenosis, lumbosacral region; M51.16 Intervertebral disc disorders with radiculopathy, lumbar region; M51.372 Other intervertebral disc degeneration, lumbosacral region with discogenic back pain and lower extremity pain
CPT/HCPCS: 72131